=== PATIENT | male | born 1955 | race Caucasian/White ===

== ENCOUNTER 2021-04-26 23:03 | Inpatient (IN) | payer OTHER, SELFPAY ==
--- NOTE | ~2021-04-26 | XR_ITS ---
EXAMINATION: XR foot LT 2V DATE: 04/26/2021 23:52 INDICATION: Left foot ulcer. TECHNIQUE: 2 views of left foot were obtained. COMPARISON: None. FINDINGS: There is mild hallux valgus. No fracture. There is moderate osteoarthritis of first metatar sophalangeal joint and mild osteoarthritis of some the interphalangeal joints and midfoot joints. The re is an enthesophyte at plantar aspect of calcaneal tuberosity. There is an ulcer at the plantar asp ect of the great toe. IMPRESSION: 1. No evidence of osteomyelitis. 2. Polyarticular osteoarthritis. 3. Mild hallux valgus. Reviewed, dictated and finalized at location A.
--- NOTE | ~2021-04-26 | US_ITS ---
EXAMINATION: US renal BI EXAM DATE: 05/04/2021 13:24 INDICATION: Elevated creatinine. TECHNIQUE: Multiple grayscale and Doppler images of the kidneys were obtained (by a technologist who performed the scan) and subsequently reviewed. There is no prior study for comparison. FINDINGS: Right kidney: There is normal contour and echogenicity. It measures 11.5 x 6.3 x 6.2 centimeters. T here are no focal renal lesions identified. There is no hydronephrosis. Left kidney: There is normal contour and echogenicity. It measures 12.1 x 5.3 x 5.7 centimeters. Th ere are no focal renal lesions identified. There is no hydronephrosis. Bladder unremarkable. IMPRESSION: 1. Sonographically unremarkable kidneys. Reviewed, dictated and finalized at location A.
--- NOTE | ~2021-04-26 | US_ITS ---
EXAMINATION: US venous doppler LE EXAM DATE: 05/04/2021 13:24 INDICATION: Bilateral leg edema. TECHNIQUE: Multiple grayscale, color flow and Doppler images of the lower extremity deep venous syste ms bilaterally were obtained and reviewed. There is no prior study for comparison. FINDINGS: Right side: The right common femoral, femoral and profunda veins demonstrate normal color flow, respi ratory variation, augmentation and compressibility. Compressibility, color flow confirmed within the right popliteal, posterior tibial, peroneal, and greater saphenous veins. Left side: The left common femoral, femoral and profunda veins demonstrate normal color flow, respira tory variation, augmentation and compressibility. Compressibility, color flow confirmed within the l eft popliteal, posterior tibial, peroneal, and greater saphenous veins. Left inguinal lymphadenopath y, could be reactive given left foot ulceration, redness, swelling. IMPRESSION: 1. No lower extremity deep venous thrombosis bilaterally. 2. Left inguinal lymphadenopathy, probably reactive. Reviewed, dictated and finalized at location A.
--- NOTE | ~2021-04-26 | NM_ITS ---
EXAMINATION: NM renal flow and function DATE: 05/14/2021 13:43 INDICATION: Acute kidney injury. TECHNIQUE: 8.4 mCi Tc-99m MAG3 was administered IV. The patient was scanned in the supine position. A posterior abdominal radionuclide angiogram was obtained. A subsequent time course of static images of the kidneys, ureters, and bladder was obtained. COMPARISON: Ultrasound kidneys 05/04/2021 FINDINGS: The posterior abdominal radionuclide angiogram and sequential static images show normal siz e, position, and morphology of the kidneys. Peak renal parenchymal uptake was 25 min in right kidney and 29 min in left kidney (normal peak 3-5 minutes). The relative early renal uptake was 58% on the right and 42% on the left (<40% is abnormal). No abnormalities of the ureters or bladder are seen. T1/2 for clearance of activity from the right kidney and proximal collecting system was too long to m easure. T1/2 for clearance of activity from the left kidney and proximal collecting system was too long to me asure. IMPRESSION: 1. Symmetric kidney function. 2. Delayed and persistent bilateral nephrograms, consistent with decreased kidney function. Reviewed, dictated and finalized at location A. IMPRESSION: 1. Symmetric kidney function. 2. Delayed and persistent bilateral nephrograms, consistent with decreased kid faina function.
--- NOTE | ~2021-04-26 | CT_ITS ---
EXAMINATION: CT foot LT wo con DATE: 04/27/2021 10:48 INDICATION: Diabetic foot ulcer with erythema and swelling at the left great toe. Assess for osteomye litis. TECHNIQUE: High resolution computed tomography (CT) of the left foot was performed without intravenou s contrast. Additional sagittal and coronal reconstructions were performed. Automated exposure contro l and iterative reconstruction technique were employed. The dose-length product was 419.66 mGy-cm. COMPARISON: Left foot radiographs dated 04/26/2021 FINDINGS: Shallow skin ulceration at the plantar/medial aspect of the distal tip of the left great toe. There i s soft tissue swelling and likely edema in the fat at the tip of the great toe. No deep or soft tissu e gas. No underlying cortical erosion to suggest osteomyelitis. Bone alignment is normal. No fracture . Moderate osteoarthritis at the first metatarsal phalangeal and second tarsometatarsal joints with m ild osteoarthritis at many of the remaining joints throughout the left foot as well as at the left an kle. Bone islands at the talus and navicula. Small Achilles and plantar calcaneal spurs. No joint eff usions. Diffuse subcutaneous edema about the distal lower leg, ankle and foot. IMPRESSION: 1. Shallow ulceration at the plantar medial aspect of the distal tip of the left great toe without ev ident underlying soft tissue gas or osteomyelitis. 2. Mild to moderate polyarticular osteoarthritis. Reviewed, dictated and finalized at location A. IMPRESSION: 1. Shallow ulceration at the plantar medial aspect of the distal tip of the lef t great toe without evident underlying soft tissue gas or osteomyelitis. 2. Mild to moderate polyarticular osteoarthritis.
[2021-04-26 23:06] VITALS: BP 155/75; PULSE 93; RESP 18; TEMP 36.8; O2SAT 98
--- NOTE | 2021-04-26 23:27 | ECG_ITS ---
Measurements Intervals [place] Rate: 86 P: 49 WV: 261 QRS: -13 QRSD: 178 T: 139 QT: 424 QTc: 510 Interpretive Statements SINUS RHYTHM WITH FIRST DEGREE AV BLOCK LEFT BUNDLE BRANCH BLOCK BASELINE WANDER- I, II, AVR, AVL, AVF, V6 ABNORMAL ECG Electronically Signed On 04-27-2021 6:34:09 CDT by Tho Caballero D.O.
--- NOTE | 2021-04-26 23:42 | ED.WOUNDLAC ---
HPI - Wound/Laceration General Chief Complaint: Wound/Laceration Stated Complaint: foot wounds/diabetic wounds Time Seen by Provider: 04/26/21 23:20 History of Present Illness HPI narrative: Patient presents for evaluation of a wound on his foot. Patient reports he jammed his toe against some furniture approximately 1 month ago he has been attempting topical antibiotics however his wound does not appear to be healing and his pain is getting worse so he wanted to come in for evaluation. He has pain that is achy, constant, radiates up his leg and worse with walking. Related Data Home Medications Medication Instructions Recorded Confirmed aspirin 81 mg PO DAILY 04/27/21 04/27/21 fluticasone propionate 40 mcg INTRANASAL Q6H 04/27/21 04/27/21 furosemide 40 mg PO DAILY 04/27/21 04/27/21 glipizide 5 mg PO DAILY 04/27/21 04/27/21 hydralazine 10 mg PO TID 04/27/21 04/27/21 latanoprost 1 drp EACH EYE DAILY 04/27/21 04/27/21 lisinopril 30 mg PO DAILY 04/27/21 04/27/21 loratadine 10 mg PO DAILY 04/27/21 04/27/21 metoprolol succinate [Toprol XL] 100 mg PO DAILY 04/27/21 04/27/21 quetiapine 400 mg PO DAILY 04/27/21 04/27/21 tamsulosin 0.4 mg PO DAILY 04/27/21 04/27/21 tramadol 50 mg PO Q4H PRN 04/27/21 04/27/21 zolpidem 5 mg PO DAILY 04/27/21 04/27/21 Allergies Allergy/AdvReac Type Severity Reaction Status Date / Time latex Allergy Intermediate Itching Verified 04/27/21 03:39 Review of Systems Review of Systems: CONSTITUTIONAL: Denies fever, chills, or sweats. EYES: Denies visual changes, redness, or discharge. ENT: Denies rhinorrhea, congestion, sore throat, or otalgia. CARDIOVASCULAR: Denies chest pain, palpitations, or edema. RESPIRATORY: Denies cough or dyspnea. GASTROINTESTINAL: Denies abdominal pain, nausea, vomiting, or diarrhea. GENITOURINARY: Denies dysuria or hematuria. SKIN: Denies rash or itching. MUSCULOSKELETAL: Denies back pain, joint pain, or myalgia. NEUROLOGIC: Denies headache, numbness, dizziness, or weakness. PSYCHIATRIC: Denies anxiety or depression. All systems reviewed & are unremarkable except as noted in HPI and below PMFSH Family History Family History (Updated 04/27/21 @ 03:48 by Theresa Wallace RN) Father Lung cancer Social History Social History Smoking status: Never smoker Alcohol intake: never Substance use: never Spiritual care concerns: No Exam Narrative: GENERAL: Well-appearing, well-nourished, and in no acute distress. HEAD: Normocephalic, atraumatic. EYES: PERRLA and EOMI. ENT: Nares clear, no rhinorrhea or epistaxis. Mucous membranes moist. NECK: Supple. No masses. No JVD EXTREMITIES: Ulcer on the plantar of the first digit on the left foot does palpate to bone there is associated erythema that tracks up to the knee and 3+ pitting edema bilaterally. The left lower extremity has increased warmth compared to the contralateral side. Is able to express any purulent material from his wound there is not appear to be any focal fluctuance SKIN: Warm, dry, no rash. NEURO: No focal deficits. Alert and oriented x3. PSYCH: Normal mood and affect. Course Vital Signs Vital signs: Vital Signs Temperature 36.8 C 04/26/21 23:06 Pulse Rate 93 04/26/21 23:06 Respiratory Rate 18 04/26/21 23:06 Blood Pressure 155/75 H 04/26/21 23:06 Pulse Oximetry 98 04/26/21 23:06 Temperature 36.1 C L 04/27/21 05:06 Pulse Rate 67 04/27/21 05:06 Respiratory Rate 22 H 04/27/21 05:06 Blood Pressure 121/56 L 04/27/21 05:06 Pulse Oximetry 95 04/27/21 05:06 MDM - Wound/Laceration MDM Narrative Medical decision making narrative: Patient presented with poorly healing wound on his left lower extremity exam has a diabetic ulcer that probes to bone with surrounding erythema radiating up into his leg. Labs and imaging obtained. Labs notable for mild leukocytosis, elevated glucose, elevated lactate. Imaging was with ou
[2021-04-27] VITALS (10 sets, daily range): BP systolic 121–140; BP diastolic 56–72; PULSE 67–90; RESP 16–22; TEMP 36.1–36.7; O2SAT 95–100; BMI 41.1
[2021-04-27 00:16] LABS: Basophils Absolute Auto 0.1 K/mm3 (0.0-0.1); Basophils Percent Auto 0.7 % (0.2-1.2); Eosinophils Absolute Auto 0.5 K/mm3 (0-0.3); Eosinophils Percent Auto 4.1 % (0-4.4); Immature Granulocyte Absolute 0.33 K/mm3 (0.00-0.031); Immature Granulocyte Percent A 2.8 % (0-0.5); Lymphocytes Absolute Auto 1.87 K/mm3 (0.9-3.2); Mean Corpuscular HGB Conc 32.5 g/dl (32-36); Mean Corpuscular Hemoglobin 29.3 pg (26-34); Mean Corpuscular Volume 90.3 fl (80-100); Mean Platelet Volume 9.3 fl (7.4-10.4); Monocytes Absolute Auto 0.8 K/mm3 (0.1-0.6); Monocytes Percent Auto 6.7 % (2.6-8.5); Neutrophils Absolute Auto 8.2 K/mm3 (1.3-6.7); Neutrophils Percent Auto 69.7 % (45.5-73.1); Platelet Count Result 326 k/mm3 (150-375); Red Blood Count 4.43 M/mm3 (4.6-6.20); Red Cell Distribution Width 13.5 % (11.5-14.5); White Blood Count 11.7 K/mm3 (4.5-10.0)
[2021-04-27 00:26] LABS: Lactic Acid Reflex 2.3 mmol/L (0.7-2.1)
[2021-04-27 00:27] LABS: Alanine Aminotransferase 59 U/L (4-50); Albumin Level 3.7 g/dL (3.5-5.1); Alkaline Phosphatase 148 U/L (38-126); Anion Gap 9 mmol/L (8-16); Aspartate Amino Transferase 42 U/L (17-59); Bilirubin,Total 0.5 mg/dL (0.2-1.3); Blood Urea Nitrogen 20 mg/dL (9-20); CRP 6.4 mg/dL (<1.0); Calcium 8.7 mg/dL (8.4-10.2); Carbon Dioxide 28 mmol/L (22-30); Chloride 97 mmol/L (98-107); Estimated CRCL calculation 98 ml/min; Estimated Glomerular Filt Rate > 60; Glucose 335 mg/dL (65-110); Partial Thromboplastin Time 36.2 SECONDS (22.3-36.8); Potassium 3.8 mmol/L (3.4-5.0); Prothrombin Time 13.4 Seconds (11.1-14.7); Sodium 134 mmol/L (137-145)
[2021-04-27 01:18] LABS: Erythrocyte Sedimentation Rate 95 mm/hr (0-20)
[2021-04-27 03:11] LABS: Reflex Lactic Acid Yes or No Add Lactic
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
[2021-04-27] MEDS: HEPARIN SODIUM 5,000 UNITS/ML VIAL 5000 UNITS SUB-Q (05:35)
[2021-04-27 07:12] LABS: Lactic Acid 1.7 mmol/L (0.7-2.1)
[2021-04-27] MEDS: INSULIN ASPART (*BKC) 100 UNITS/ML 6 UNITS SUB-Q ×2 (07:46→17:35)
[2021-04-27 07:56] LABS: Glucose Point of Care 194 mg/dl (65-105)
[2021-04-27] MEDS: traMADol HCL (*CRX) 50 MG TABLET PO (10:09)
[2021-04-27] MEDS: METOPROLOL SUCCINATE EXT REL 100 MG TABCR PO (10:09)
[2021-04-27] MEDS: ASPIRIN 81 MG CHEWABLE TABLET PO (10:10)
[2021-04-27] MEDS: lisinopriL 10 MG TABLET 30 MG PO (10:10)
[2021-04-27] MEDS: TAMSULOSIN HCL 0.4 MG CAPSULE PO (10:10)
[2021-04-27] MEDS: hydrALAZINE 10 MG TABLET PO (10:10)
[2021-04-27] MEDS: FUROSEMIDE 40 MG TABLET PO (10:10)
[2021-04-27] MEDS: LATANOPROST 0.005% OP SOLN 2.5 ML BTL 1 DROP EACH EYE (10:11)
[2021-04-27] MEDS: QUEtiapine FUMARATE 100 MG TABLET 400 MG PO (10:11)
[2021-04-27] MEDS: LORATADINE 10 MG TABLET PO (10:11)
--- NOTE | 2021-04-27 11:07 | PM.IMPN ---
Progress Note: A&P Assessment and Plan (1) Skin ulcer of left great toe: Code(s): L97.529 - Non-pressure chronic ulcer of other part of left foot with unspecified severity Status: Acute Assessment and Plan: X-ray showing no evidence of osteomyelitis. Polyarticular osteoarthritis. Concerns for cellulitis from trauma and history of diabetes. CT foot has been ordered and pending Continue IV antibiotics at this time with vancomycin and cefepime (#1) Blood cultures pending Surgery and Infectious Disease has been consulted by the previous provider and their input is greatly appreciated Continue monitoring. Vital signs. (2) Cellulitis: Qualifiers: Laterality: left Site of cellulitis: extremity Site of cellulitis of extremity: lower extremity Qualified Code(s): L03.116 - Cellulitis of left lower limb Code(s): L03.90 - Cellulitis, unspecified Status: Acute Assessment and Plan: See above. (3) Type 2 diabetes mellitus: Code(s): E11.9 - Type 2 diabetes mellitus without complications Status: Acute Assessment and Plan: Will hold patients oral Glipizide. Glucose checks ACHS. Hypoglycemic orders in. Sliding scale insulin (4) Legally blind: Code(s): H54.8 - Legal blindness, as defined in [place] Status: Acute Assessment and Plan: PT/OT ordered. Walk with assistance. Time Spent With Patient Time with patient: 25 - 35 minutes Subjective Date/time seen: 04/27/21 11:07 Interval history: Date of service 04/27/2021: Patient states he is still having some foot pain, as he is using it to help get into the wheelchair to go get this CT scan. Since he is legally blind he cannot tell if there is any improvement of his foot wound in swelling or redness. He denies any fevers, chills, chest pain, shortness of breath, cough, nausea, vomiting, abdominal pain, or any other symptoms at this time. Review of Systems Review of Systems: All systems reviewed & are unremarkable except as noted in HPI and below Exam Narrative: General: 66-year-old man transferring into a wheelchair to go down to CT. Appears comfortable. In no acute distress. HEENT: Gauze dressing and tape to right eyebrow and over right eye partially. Normocephalic. Skin: No jaundice or cyanosis. Good skin turgor. Neck: Full range of motion. Supple. Respiratory: Lungs are clear to auscultation bilaterally. No wheezing, rales or rhonchi. No bony chest wall tenderness. Cardiovascular: The heart has a regular rate and rhythm without murmur. Lower extremities: Left foot with gauze dressing in place, unable to further evaluate since going down for CT scan. No lower extremity edema. Distal pulses are easily palpated. No calf tenderness to palpation. Gastrointestinal: The abdomen is soft, nontender and nondistended with active bowel sounds. Psychiatric: Lucid and oriented. Memory intact. Neurologic: No focal deficits. Speech is clear. No facial drooping. Objective Data Vital Signs Vital Signs: Vital Signs - 24 hr 04/26/21 23:06 04/27/21 01:21 04/27/21 02:28 Temperature 98.3 F Pulse Rate 93 83 84 Respiratory Rate 18 18 20 Blood Pressure 155/75 H 139/68 140/72 Pulse Oximetry 98 100 100 04/27/21 05:06 04/27/21 10:09 Temperature 96.9 F L Pulse Rate 67 72 Respiratory Rate 22 H Blood Pressure 121/56 L Pulse Oximetry 95 Intake/Output Intake/Output: Intake & Output 04/24/21 04/25/21 04/26/21 04/27/21 23:59 23:59 23:59 23:59 Intake Total 510 Output Total 600 Balance -90 Meds/Results Medications: Active Medications Generic Name Dose Route Start Last Admin Trade Name Freq PRN Reason Stop Dose Admin Aspirin 81 mg 04/27/21 09:00 04/27/21 10:10 Aspirin 81
[2021-04-27 11:22] LABS: Glucose Point of Care 187 mg/dl (65-105)
--- NOTE | 2021-04-27 12:45 | PC.NURSE ---
arrived to pt's room after him calling out after using the urinal, pt has eyes closed and is speaking with a garbled speech which is changed from previous assessment, I asked him what was wrong and he states he is having trouble getting his words out, he did not open eyes but was speaking, I placed a call to Elle to report a change in this pt, she arrived to room to complete a neuro check and assess pt within 15 minutes, during her assessment the pt shot up to seated position and stated he was fine and that she is barking up the wrong tree that he has been sleep deprived for several days due to having pain in foot and having difficulty sleeping, he states he does not need a CT of his head because chance of him having a stroke is a trillion to one
--- NOTE | 2021-04-27 13:01 | PM.CNGS ---
Assessment and Plan Assessment and plan (1) Skin ulcer of left great toe: Qualifiers: Non-pressure ulcer stage: with fat layer exposed Qualified Code(s): L97.522 - Non-pressure chronic ulcer of other part of left foot with fat layer exposed Code(s): L97.529 - Non-pressure chronic ulcer of other part of left foot with unspecified severity Status: Acute Assessment and Plan: Patient has a wound on the plantar surface of his left great toe. This appears likely to be related to the recent injury to this toe and poor visualization to be able to adequately care for this. He has palpable dorsalis pedis and posterior tibial pulses and does not show any other signs of ischemia. Will begin daily dressing changes with silver gel applied to wound base. Will continue to monitor while and and hopefully will not require any surgical debridement or amputation. CT is still pending to assess further for any signs of osteomyelitis. He is on broad-spectrum IV antibiotics for lower extremity cellulitis as well. (2) Type 2 diabetes mellitus: Qualifiers: Diabetes mellitus terminal clerk insulin use: without terminal clerk use Diabetes mellitus complication status: with hyperglycemia Qualified Code(s): E11.65 - Type 2 diabetes mellitus with hyperglycemia Code(s): E11.9 - Type 2 diabetes mellitus without complications Status: Acute Assessment and Plan: poorly controlled. Hemoglobin A1c has not been drawn yet, but this will be beneficial to determine how well patient has been controlled lately. (3) Legally blind: Code(s): H54.8 - Legal blindness, as defined in [place] Status: Acute (4) Cellulitis: Qualifiers: Laterality: left Site of cellulitis: extremity Site of cellulitis of extremity: lower extremity Qualified Code(s): L03.116 - Cellulitis of left lower limb Code(s): L03.90 - Cellulitis, unspecified Status: Acute History of Present Illness Consult details Consult date: 04/27/21 Reason for consult: other (Diabetic toe ulcer) Requesting physician: Ashvin Noel MD Narrative: this is a 66-year-old man who I am asked to evaluate for a left toe wound. The patient states that a couple weeks ago he bumped his left great toe and developed a wound to this area. He is partially blind and therefore could not give a real accurate history of how the wound looked. He has been applying a Vaseline ointment to his feet to try to prevent dry skin or other wounds. He has been having some pain to the left great toe, but denies any other new symptoms. In the emergency department he was noted to have a significant amount of erythema extending along his foot and lower leg. The patient is diabetic but has not been very compliant with his medications. He states that he has been having insurance issues preventing him from getting routine refills. He denies any prior history of diabetic foot wounds. He was admitted to the hospital and placed on IV antibiotics. A foot x-ray showed no evidence of osteomyelitis. He was taken down for CT of his foot this morning, but results are not back yet. Review of Systems Review of Systems: All systems reviewed & are unremarkable except as noted in HPI and below Constitutional: Constitutional: Denies chills, Reports difficulty sleeping and Denies fever(s) Eyes: Eyes: Denies change in vision ENT: Denies hearing loss, Denies neck pain and Denies sore throat Cardiovascular: Cardiovascular: Denies chest pain and Denies dyspnea Respiratory: Respiratory: Denies cough, Denies dyspnea and Denies wheezing Gastrointestinal: Gastrointestinal: Denies change in bowel habits, Denies nausea and Denies vomiting Genitourinary: Genitourinary: Denies hematuria and Denies dysuria Musculoskeletal: Musculoskeletal: Denies arthralgias, Denies joint swelling and Denies neck pain Integumentary/Breasts: Skin/Breast: Reports as per HPI Allergic/Immunologic: All
--- NOTE | 2021-04-27 15:02 | PCOTNOTE ---
Attempted OT evaluation; pt. asleep and unable to wake enough to complete evaluation. Will attempt again in am as possible.
[2021-04-27] MEDS: SILVERGEL (ELTA) 45 ML 1 APPLIC TOPICAL (15:22)
[2021-04-27 17:34] LABS: Glucose Point of Care 193 mg/dl (65-105)
--- NOTE | 2021-04-27 17:50 | PC.NURSE ---
despite repeated attempts in several different methods, pt refused/was unable to awaken to take his 1700 meds; will continue to monitor
[2021-04-27 21:20] LABS: Glucose Point of Care 186 mg/dl (65-105)
--- NOTE | 2021-04-27 22:31 | PC.NURSE ---
At 2036 I entered the patient room with JOSSELYN Hawk, to do an initial assessment and administer 2100 medications. I introduced myself to the patient and stated I needed to listen to his lungs and stomach. I noticed he had something in his pants and asked him what it was. He did not answer. I proceeded to pull down his pants and pulled out a urinal from around his stomach area. I handed it to the JOSSELYN to empty and record. I stated that his pants were wet and we needed to take them off. The patient woke up and denied that he had wet pants. Carine stated that we had other scrub pants available for him to change in to. The patient was angry and said he did not have wet pants and told me to get the fuck out of here and let me sleep . I said we cannot leave you soaked in urine because that would lead to further skin breakdown. Carine and I both stated that you are in the hospital to receive care and treatment. I listed all the medication and IV antibiotics that were due for administration. I said I would let him sleep as soon as I was finished and that it would not take long. The patient got even more angry and jumped out of bed and said I am going to knock you out and punch you if you don't leave . I jumped back and said I am only here to treat you. If you don't want treatment you can leave at anytime. He said all I want to do it sleep . I repeated his need for IV antibiotics and he screamed more obscenities at me and told me to leave. Carine and I both left the room after he declined care. I reported the incident to my charge nurse Luann.
[2021-04-28] VITALS (11 sets, daily range): BP systolic 111–136; BP diastolic 50–86; PULSE 70–88; RESP 20–22; TEMP 36–36.2; O2SAT 94–96
[2021-04-28 01:35] LABS: Vancomycin Trough 17.5 ug/mL (10.0-20.0)
[2021-04-28 05:58] LABS: Hematocrit 39.8 % (42.0-52.0); Hemoglobin 12.7 g/dL (14.0-18.0); Mean Corpuscular HGB Conc 31.9 g/dl (32-36); Mean Corpuscular Volume 93.9 fl (80-100); Mean Platelet Volume 9.2 fl (7.4-10.4); Platelet Count Result 309 k/mm3 (150-375); Red Blood Count 4.24 M/mm3 (4.6-6.20); Red Cell Distribution Width 13.7 % (11.5-14.5); White Blood Count 12.5 K/mm3 (4.5-10.0)
[2021-04-28 06:07] LABS: Hemoglobin A1C 7.8 % (<5.7)
[2021-04-28] MEDS: HEPARIN SODIUM 5,000 UNITS/ML VIAL 5000 UNITS SUB-Q ×3 (06:25→21:34)
[2021-04-28 07:32] LABS: Glucose Point of Care 193 mg/dl (65-105)
[2021-04-28 08:22] LABS: Alanine Aminotransferase 48 U/L (4-50); Albumin Level 3.8 g/dL (3.5-5.1); Alkaline Phosphatase 99 U/L (38-126); Anion Gap 6 mmol/L (8-16); Aspartate Amino Transferase 43 U/L (17-59); Bilirubin,Total 0.9 mg/dL (0.2-1.3); Blood Urea Nitrogen 17 mg/dL (9-20); CRP 5.9 mg/dL (<1.0); Calcium 8.6 mg/dL (8.4-10.2); Carbon Dioxide 27 mmol/L (22-30); Chloride 99 mmol/L (98-107); Estimated CRCL calculation 130 ml/min; Estimated Glomerular Filt Rate > 60; Glucose 195 mg/dL (65-110); Potassium 4.6 mmol/L (3.4-5.0); Sodium 132 mmol/L (137-145)
[2021-04-28] MEDS: lisinopriL 10 MG TABLET 30 MG PO (09:11)
[2021-04-28] MEDS: FUROSEMIDE 40 MG TABLET PO (09:12)
[2021-04-28] MEDS: METOPROLOL SUCCINATE EXT REL 100 MG TABCR PO (09:12)
[2021-04-28] MEDS: ASPIRIN 81 MG CHEWABLE TABLET PO (09:12)
[2021-04-28] MEDS: hydrALAZINE 10 MG TABLET PO ×3 (09:12→17:12)
[2021-04-28] MEDS: TAMSULOSIN HCL 0.4 MG CAPSULE PO (09:12)
[2021-04-28] MEDS: QUEtiapine FUMARATE 100 MG TABLET 400 MG PO (09:12)
[2021-04-28] MEDS: FLUTICASONE PROPIONATE 0.05% NA SPR 16 GM BTL (*BKC) 1 SPRAY NASAL ×2 (09:13→21:34)
[2021-04-28] MEDS: LATANOPROST 0.005% OP SOLN 2.5 ML BTL 1 DROP EACH EYE (09:13)
--- NOTE | 2021-04-28 09:17 | PM.PNGS ---
Progress Note: A&P Assessment and Plan (1) Skin ulcer of left great toe: Qualifiers: Non-pressure ulcer stage: with fat layer exposed Qualified Code(s): L97.522 - Non-pressure chronic ulcer of other part of left foot with fat layer exposed Code(s): L97.529 - Non-pressure chronic ulcer of other part of left foot with unspecified severity Status: Acute Assessment and Plan: No signs of osteomyelitis on CT. Continue local wound care. I doubt this will need any debridement if well taken care of. Continue Silver gel to wound. Will follow as needed. (2) Cellulitis: Qualifiers: Laterality: left Site of cellulitis: extremity Site of cellulitis of extremity: lower extremity Qualified Code(s): L03.116 - Cellulitis of left lower limb Code(s): L03.90 - Cellulitis, unspecified Status: Acute (3) Type 2 diabetes mellitus: Qualifiers: Diabetes mellitus termite control representative insulin use: without [place] [facility] use Diabetes mellitus complication status: with hyperglycemia Qualified Code(s): E11.65 - Type 2 diabetes mellitus with hyperglycemia Code(s): E11.9 - Type 2 diabetes mellitus without complications Status: Acute (4) Legally blind: Code(s): H54.8 - Legal blindness, as defined in [place] Status: Acute Subjective Subjective Date/Time Seen: 04/28/21 09:17 Interval history: Still complaining of some leg pain. Overall feeling better. Exam Extrem: General: edema bilateral Other: PT and DP pulses intact. Left plantar great toe ulcer unchanged. No purulent drainage. Objective Data Vital Signs Vital Signs: Vital Signs - 24 hr 04/27/21 10:09 04/27/21 12:40 04/27/21 13:23 Temperature Pulse Rate 72 90 90 Respiratory Rate 16 Blood Pressure 134/58 L Pulse Oximetry 96 04/27/21 14:00 04/27/21 16:00 04/27/21 20:00 Temperature 36.7 C Pulse Rate 80 79 70 Respiratory Rate 22 H Blood Pressure 125/63 Pulse Oximetry 100 04/27/21 20:49 04/28/21 00:00 04/28/21 04:00 Temperature 36.1 C L Pulse Rate 70 70 75 Respiratory Rate 20 Blood Pressure 130/71 Pulse Oximetry 96 04/28/21 05:25 Temperature 36.2 C L Pulse Rate 75 Respiratory Rate 20 Blood Pressure 136/86 Pulse Oximetry 94 Intake/Output Intake/Output: Intake & Output 04/25/21 04/26/21 04/27/21 04/28/21 23:59 23:59 23:59 23:59 Intake Total 2390 1090 Output Total 1750 600 Balance 640 490 Meds/Results Medications: Active Medications Generic Name Dose Route Start Last Admin Trade Name Freq PRN Reason Stop Dose Admin Aspirin 81 mg 04/27/21 09:00 04/27/21 10:10 Aspirin 81 Mg Chewable Tablet PO 81 mg DAILY MARELY Administration Fluticasone Propionate 1 spray 04/27/21 12:40 04/28/21 08:14 Fluticasone Propionate 0.05% Na Spr 16 Gm Btl (*Bkc) NASAL Not Given Q12HR MARELY Furosemide 40 mg 04/27/21 09:00 04/27/21 10:10 Furosemide 40 Mg Tablet PO 40 mg DAILY MARELY Administration Heparin Sodium (Porcine) 5,000 units 04/27/21 06:00 04/28/21 06:25 Heparin Sodium 5,000 Units/Ml Vial SUB-Q 5,000 units Q8HR MARELY Administration Hydralazine HCl 10 mg 04/27/21 09:00 04/27/21 22:34 Hydralazine 10 Mg Tablet PO Not Given TID MARELY Vancomycin HCl 1,500 mg in 500 mls @ 333.333 mls/hr 04/27/21 10:00 04/28/21 04:13 Vancomycin 1,500 Mg/D5w 500 Ml IVPB Infused Q8H MARELY Infusion Cefepime HCl 2 gm in 50 mls @ 100 mls/hr 04/27/21 06:00 04/28/21 06:55 Maxipime 2 Gm/D5w 50 Ml IVPB Infused Q8H MARELY Infusion Insulin Aspart 6 units 04/27/21 08:00 04/27/21 17:35 Insulin Aspart (*Bkc) 100 Units/Ml 0.05 units/kg (6 units) 6 units SUB-Q Administration TIDWM MARELY Latanoprost 1 drop 04/27/21 09:00 04/27/21 10:11 Latanoprost 0.005% Op Soln 2.5 Ml Btl EACH EYE 1 drop DAILY MARELY Administration Lisinopril 30 mg 04/27/21 09:00 04/27/21 10:10 Lisinopril 10 Mg Tablet PO 30 mg DAILY MARELY
[2021-04-28] MEDS: traMADol HCL (*CRX) 50 MG TABLET PO (09:19)
[2021-04-28] MEDS: SILVERGEL (ELTA) 45 ML 1 APPLIC TOPICAL ×2 (09:32→17:12)
--- NOTE | 2021-04-28 09:40 | PM.IMPN ---
Progress Note: A&P Assessment and Plan (1) Skin ulcer of left great toe: Qualifiers: Non-pressure ulcer stage: with fat layer exposed Qualified Code(s): L97.522 - Non-pressure chronic ulcer of other part of left foot with fat layer exposed Code(s): L97.529 - Non-pressure chronic ulcer of other part of left foot with unspecified severity Status: Acute Assessment and Plan: X-ray showing no evidence of osteomyelitis. Polyarticular osteoarthritis. Concerns for cellulitis from trauma and history of diabetes. CT foot ordered and showing no osteomyelitis. Will continue with treatment for Cellulitis and leg edema. Continue IV antibiotics at this time with vancomycin and cefepime (#2) Blood cultures pending CRP coming down with current treatment Surgery was consulted and feels there is no need for further debridement at this time. Plans for Silver gel and dressing changes daily. Infectious Disease has been consulted by the previous provider and their input is greatly appreciated Continue monitoring. Vital signs. (2) Cellulitis: Qualifiers: Laterality: left Site of cellulitis: extremity Site of cellulitis of extremity: lower extremity Qualified Code(s): L03.116 - Cellulitis of left lower limb Code(s): L03.90 - Cellulitis, unspecified Status: Acute Assessment and Plan: See above. (3) Congestive heart failure: Code(s): I50.9 - Heart failure, unspecified Status: Acute Assessment and Plan: Acute. Patient reports history of congestive heart failure since 2012. Unable to tell me if systolic versus diastolic. 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 He is so-so be on Lasix daily but has been out of his medications since April 10. Echocardiogram pending to decide if his congestive heart failure is related to systolic versus diastolic dysfunction Due to lower extremity pitting edema bilaterally left greater than right will start IV Lasix 40 mg b.i.d. Will check weights daily and strict intake and output Continue on metoprolol, lisinopril at this time. Continue monitoring renal function electrolytes with diuresis (4) Chest pain: Code(s): R07.9 - Chest pain, unspecified Status: Acute Assessment and Plan: Patient is reporting some left-sided chest pain which he states he has when he does not take his metoprolol. He states he has had this chest pain since April 10 which is the last time he took his metoprolol. The patient did not take his metoprolol yesterday because he refused the medication because he was tired and wanted to sleep. From what the patient tells me a sounds like he has a long history of coronary artery disease and follows up with a newspaper carriers supervisor at [facility] Will continue his home medications Check EKG, troponin, continue monitoring on telemetry If any worsening chest pain, abnormality will consider Cardiology consultation. (5) Slurred speech: Code(s): R47.81 - Slurred speech Status: Acute Assessment and Plan: 04/27/24 at 1230: I was called by the patient's nurse to his bedside because the patient said he was having trouble with his speech. Upon my evaluation it does seem like the patient was having some slurred speech from when I evaluated him earlier. Patient said it just started a few minutes ago he is having trouble coming up with the right words and some slurred speech. I further exam and him: No pronator drift. The patient reported sensation changes to both sides of his face. Patch Driller strength equal to bilateral upper extremities. I moved on to my lower extremity examination with sensation and strength when the patient immediately sat up because I had heard him. He sat up without any assistance and m
--- NOTE | 2021-04-28 09:46 | ECG_ITS ---
Measurements Intervals [place] Rate: 80 P: 62 HI: 258 QRS: -9 QRSD: 177 T: 120 QT: 429 QTc: 497 Interpretive Statements SINUS RHYTHM WITH FIRST DEGREE AV BLOCK ATRIAL PREMATURE COMPLEXES LEFT BUNDLE BRANCH BLOCK ABNORMAL ECG Electronically Signed On 04-28-2021 20:35:43 CDT by Tho Caballero D.O.
[2021-04-28] MEDS: LORATADINE 10 MG TABLET PO (10:02)
[2021-04-28 10:45] LABS: Troponin I < 0.012 ng/mL (0.000-0.034)
[2021-04-28 12:14] LABS: Glucose Point of Care 227 mg/dl (65-105)
[2021-04-28] MEDS: EUCERIN CREAM 120 GM JAR 1 APPLIC TOPICAL (12:57)
[2021-04-28] MEDS: INSULIN ASPART (*BKC) 100 UNITS/ML 6 UNITS SUB-Q ×2 (12:58→17:13)
--- NOTE | 2021-04-28 15:55 | WPDCN ---
Assessment and Plan Additional Plan 1. Left diabetic foot infection with chronic left foot 1st digit plantar ulcer. Currently on examination not probing to the bone. No signs of loculation or crepitation. CT scan of the foot was negative for osteomyelitis. Diabetic foot ulcer with secondary cellulitis. Patient is on cefepime and vancomycin. Will deescalate cefepime to Rocephin 2 g daily. Continue to keep leg elevated and follow up on blood cultures. 2. Bilateral lower extremity edema with erythema near symmetrical. Highly suspicious for stasis dermatitis with chronic lymphedema. Recommend keep leg elevated. 3. Type 2 diabetes will request hemoglobin A1c. 4. Morbidly obese would benefit from weight loss. 5. COVID-19 vaccination status: Vaccinated. 6. Date of service 04/28/2020 HPI Data of Consult Date/Time: 04/28/21 15:55 Requesting Physician: Kely Monsalve PA-C Primary Care Provider: Jazmin Cast, Consult Narrative Narrative: Randy Avelar is a 66 year old male with significant past medical history for type 2 diabetes, obesity, hypertension, right eye blindness present to the emergency due to left lower extremity swelling associated with erythema and left foot 1st digit plantar ulcer has been going on for several weeks. He denies any fever or chills. But does complain of erythema extending to the mid aspect of the centeno with associated swelling. No shortness of breath or cough. No diarrhea or dysuria. A CT scan of the foot done in the emergency room was negative for osteomyelitis. Patient was empirically started on cefepime and vancomycin. Blood cultures x2 collected. Infectious Disease was requested for further evaluation. Review of Systems Constitutional: Constitutional: Reports no additional constitutional complaints Eyes: Eyes: Reports as per HPI ENT: Reports as per HPI Cardiovascular: Cardiovascular: Reports no additional cardiovascular complaints Respiratory: Respiratory: Reports no additional respiratory complaints Gastrointestinal: Gastrointestinal: Reports no additional gastrointestinal complaints Genitourinary: Genitourinary: Reports no additional male genitourinary complaints Musculoskeletal: Comments: Bilateral lower extremity edema Integumentary/Breasts: Comments: Bilaterally erythema left greater than right with right plantar ulcer on the 1st digit going on for several weeks Neurologic: Reports system reviewed and no additional complaints, except as documented Psychiatric: Psychiatric: Reports no additional psychiatric complaints Endocrine: Endocrine: Reports as per HPI Hematologic/Lymphatic: Hematologic/Lymphatic: Reports no additional hematologic/lymphatic complaints Allergic/Immunologic: Allergic/Immunologic: Reports no additional allergic/immunologic complaints [facility] Past Medical History Medical History Legally blind Type 2 diabetes mellitus Family History Family History Father Lung cancer Social History Social History Smoking status: Never smoker Alcohol intake: never Substance use: never Spiritual care concerns: No Meds Home Medications and Allergies Home Medications Medication Instructions Recorded Confirmed Type aspirin 81 mg PO DAILY 04/27/21 04/27/21 History fluticasone propionate 40 mcg INTRANASAL Q6H 04/27/21 04/27/21 History furosemide 40 mg PO DAILY 04/27/21 04/27/21 History glipizide 5 mg PO DAILY 04/27/21 04/27/21 History hydralazine 10 mg PO TID 04/27/21 04/27/21 History latanoprost 1 drp EACH EYE DAILY 04/27/21 04/27/21 History lisinopril 30 mg PO DAILY 04/27/21 04/27/21 History loratadine 10 mg PO DAILY 04/27/21 04/27/21 History metoprolol succinate [Toprol XL] 100 mg PO DAILY 04/27/21 04/27/21 History quetiapine 400 mg PO DAILY 04/27/21 04/27/21 History ta
[2021-04-28] MEDS: FUROSEMIDE INJ 40 MG/4 ML VIAL IV PUSH (16:03)
[2021-04-28 17:24] LABS: Glucose Point of Care 236 mg/dl (65-105)
[2021-04-28 17:36] LABS: Hemoglobin A1C 7.9 % (<5.7)
[2021-04-28] MEDS: ZOLPIDEM TARTRATE (*CRX) 5 MG TABLET PO (21:34)
[2021-04-28 22:26] LABS: Glucose Point of Care 279 mg/dl (65-105)
--- NOTE | 2021-04-28 22:49 | PC.NURSE ---
Pt refused to have wet clothes changed. RN encouraged to change clothes but still refused. Pt refused to have his dinner tray removed. Pt also removed his foot dressing today.
[2021-04-29] VITALS (12 sets, daily range): BP systolic 136–172; BP diastolic 61–88; PULSE 74–92; RESP 16–20; TEMP 36.1–37.4; O2SAT 94–100
[2021-04-29 06:03] LABS: Hematocrit 39.6 % (42.0-52.0); Hemoglobin 12.6 g/dL (14.0-18.0); Mean Corpuscular HGB Conc 31.8 g/dl (32-36); Mean Corpuscular Hemoglobin 29.7 pg (26-34); Mean Corpuscular Volume 93.4 fl (80-100); Mean Platelet Volume 9.6 fl (7.4-10.4); Platelet Count Result 286 k/mm3 (150-375); Red Blood Count 4.24 M/mm3 (4.6-6.20); Red Cell Distribution Width 13.5 % (11.5-14.5); White Blood Count 10.8 K/mm3 (4.5-10.0)
[2021-04-29 06:24] LABS: Anion Gap 8 mmol/L (8-16); Blood Urea Nitrogen 17 mg/dL (9-20); Calcium 8.6 mg/dL (8.4-10.2); Carbon Dioxide 29 mmol/L (22-30); Chloride 98 mmol/L (98-107); Estimated CRCL calculation 115 ml/min; Estimated Glomerular Filt Rate > 60; Glucose 268 mg/dL (65-110); Magnesium 2.1 mg/dL (1.6-2.3); Potassium 4.3 mmol/L (3.4-5.0); Sodium 135 mmol/L (137-145)
[2021-04-29] MEDS: HEPARIN SODIUM 5,000 UNITS/ML VIAL 5000 UNITS SUB-Q ×3 (06:34→21:10)
[2021-04-29 07:55] LABS: Glucose Point of Care 226 mg/dl (65-105)
[2021-04-29] MEDS: LORATADINE 10 MG TABLET PO (08:00)
[2021-04-29] MEDS: hydrALAZINE 10 MG TABLET PO ×3 (08:00→16:24)
[2021-04-29] MEDS: ASPIRIN 81 MG CHEWABLE TABLET PO (08:00)
[2021-04-29] MEDS: TAMSULOSIN HCL 0.4 MG CAPSULE PO (08:00)
[2021-04-29] MEDS: QUEtiapine FUMARATE 100 MG TABLET 400 MG PO (08:01)
[2021-04-29] MEDS: FLUTICASONE PROPIONATE 0.05% NA SPR 16 GM BTL (*BKC) 1 SPRAY NASAL ×2 (08:01→21:10)
[2021-04-29] MEDS: METOPROLOL SUCCINATE EXT REL 100 MG TABCR PO (08:01)
[2021-04-29] MEDS: lisinopriL 10 MG TABLET 30 MG PO (08:01)
[2021-04-29] MEDS: FUROSEMIDE INJ 40 MG/4 ML VIAL IV PUSH ×2 (08:01→15:36)
[2021-04-29] MEDS: LATANOPROST 0.005% OP SOLN 2.5 ML BTL 1 DROP EACH EYE (08:01)
[2021-04-29] MEDS: SILVERGEL (ELTA) 45 ML 1 APPLIC TOPICAL ×2 (08:02→16:24)
[2021-04-29] MEDS: INSULIN ASPART (*BKC) 100 UNITS/ML 6 UNITS SUB-Q ×3 (08:03→17:12)
[2021-04-29] MEDS: EUCERIN CREAM 120 GM JAR 1 APPLIC TOPICAL (08:03)
--- NOTE | 2021-04-29 10:18 | WPDINFPN2 ---
Progress Note: A&P Assessment and Plan (1) Skin ulcer of left great toe: Qualifiers: Non-pressure ulcer stage: with fat layer exposed Qualified Code(s): L97.522 - Non-pressure chronic ulcer of other part of left foot with fat layer exposed Code(s): L97.529 - Non-pressure chronic ulcer of other part of left foot with unspecified severity Status: Acute Additional Plan 1. Skin ulcer 1st toe on left with mild cellulitis. No + micro. Stable. 2. LE stasis erythema and edema, he has no cellulitis in the legs 3. DM REC Ctx and Vanc same. Once WBC back to normal, convert to oral cephalexin and TMP-SMX DS, through 05/05. He will need a primary care md. Call if Qs Subjective Date/time seen: 04/29/21 10:18 Interval history: history reviewed. No pain, no chills no nausea Exam Narrative: afebrile Const: General: no acute distress Other: obese Resp: Effort & Inspection: normal respiratory effort Auscultation: clear to auscultation bilaterally Cardio: Rate: regular rate Rhythm: regular rhythm Heart sounds: no gallops and no murmurs Other: DP pulses 1 + GI: Inspection: non-distended GI Palp: Yes Soft to palpation, No Tenderness to palpation present (GI) and No Guarding due to palpation present (GI) Percussion: Yes normal to percussion Skin: General skin exam: normal color and no rashes or lesions noted Extrem: Other: L 1st toe ulcer, mild erythema and edema. LEs with erythema and edema Objective Data Vital Signs Vital Signs: Vital Signs - 24 hr 04/28/21 12:00 04/28/21 12:57 04/28/21 14:00 Temperature 36.2 C L 36.1 C L Pulse Rate 88 88 Respiratory Rate 20 Blood Pressure 130/63 Pulse Oximetry 96 04/28/21 16:00 04/28/21 20:00 04/28/21 20:51 Temperature 36.0 C L Pulse Rate 88 78 81 Respiratory Rate 22 H Blood Pressure 111/50 L Pulse Oximetry 96 04/29/21 00:00 04/29/21 04:00 04/29/21 05:01 Temperature 36.1 C L Pulse Rate 78 75 80 Respiratory Rate 20 Blood Pressure 151/88 H Pulse Oximetry 96 04/29/21 08:01 Temperature Pulse Rate 80 Respiratory Rate Blood Pressure Pulse Oximetry Intake/Output Intake/Output: Intake & Output 04/26/21 04/27/21 04/28/21 04/29/21 23:59 23:59 23:59 23:59 Intake Total 2390 3040 1600 Output Total 1750 2400 500 Balance 669 062 2878 Meds/Results Medications: Active Medications Generic Name Dose Route Start Last Admin Trade Name Freq PRN Reason Stop Dose Admin Aspirin 81 mg 04/27/21 09:00 04/29/21 08:00 Aspirin 81 Mg Chewable Tablet PO 81 mg DAILY MARELY Administration Fluticasone Propionate 1 spray 04/27/21 12:40 04/29/21 08:01 Fluticasone Propionate 0.05% Na Spr 16 Gm Btl (*Bkc) NASAL 1 spray Q12HR MARELY Administration Furosemide 40 mg 04/28/21 15:00 04/29/21 08:01 Furosemide Inj 40 Mg/4 Ml Vial IV PUSH 40 mg BID@0900,1500 MARELY Administration Heparin Sodium (Porcine) 5,000 units 04/27/21 06:00 04/29/21 06:34 Heparin Sodium 5,000 Units/Ml Vial SUB-Q 5,000 units Q8HR MARELY Administration Hydralazine HCl 10 mg 04/27/21 09:00 04/29/21 08:00 Hydralazine 10 Mg Tablet PO 10 mg TID MARELY Administration Vancomycin HCl 1,500 mg in 500 mls @ 333.333 mls/hr 04/27/21 10:00 04/29/21 07:57 Vancomycin 1,500 Mg/D5w 500 Ml IVPB Infused Q8H MARELY Infusion Ceftriaxone Sodium 2 gm in 100 mls @ 200 mls/hr 04/28/21 18:00 04/28/21 17:12 Rocephin 2 Gm/D5w 100 Ml IVPB 200 mls/hr Q24H MARELY Administration Insulin Aspart 6 units 04/27/21 08:00 04/29/21 08:03 Insulin Aspart (*Bkc) 100 Units/Ml 0.05 units/kg (6 units) 6 units SUB-Q Administration TIDWM MARELY Latanoprost 1 drop 04/27/21 09:00 04/29/21 08:01 Latanoprost 0.005% Op Soln 2.5 Ml Btl EACH EYE 1 drop DAILY MARELY Administration Lisinopril 30 mg 04/27/21 09:00 04/29/21 08:01 Lisinopril 10 Mg Tablet PO 30 mg DAILY MARELY Administration Loratadine 10 mg 04/27/21 09:00
[2021-04-29 11:48] LABS: Glucose Point of Care 158 mg/dl (65-105)
--- NOTE | 2021-04-29 14:30 | PM.IMPN ---
Progress Note: A&P Assessment and Plan (1) Skin ulcer of left great toe: Qualifiers: Non-pressure ulcer stage: with fat layer exposed Qualified Code(s): L97.522 - Non-pressure chronic ulcer of other part of left foot with fat layer exposed Code(s): L97.529 - Non-pressure chronic ulcer of other part of left foot with unspecified severity Status: Acute Assessment and Plan: X-ray showing no evidence of osteomyelitis. Polyarticular osteoarthritis. Concerns for cellulitis from trauma and history of diabetes. CT foot ordered and showing no osteomyelitis. Will continue with treatment for Cellulitis and leg edema. Infectious disease evaluated the patient and made adjustments to IV Rocephin 2 g Q 24 hours and continued on vancomycin, recommends once white blood cell count is back to normal the patient can be converted to oral cephalexin and Bactrim DS. Continue IV antibiotics at this time with vancomycin (#3) and Day #1 Cefepime --> Rocephin Blood cultures show no growth to date CRP coming down with current treatment Surgery was consulted and feels there is no need for further debridement at this time. Plans for Silver gel and dressing changes daily. Continue monitoring. Vital signs. Appreciate surgery and Infectious Disease recommendations. (2) Cellulitis: Qualifiers: Laterality: left Site of cellulitis: extremity Site of cellulitis of extremity: lower extremity Qualified Code(s): L03.116 - Cellulitis of left lower limb Code(s): L03.90 - Cellulitis, unspecified Status: Acute Assessment and Plan: See above. (3) Congestive heart failure: Code(s): I50.9 - Heart failure, unspecified Status: Acute Assessment and Plan: Acute. Patient reports history of congestive heart failure since 2012. Unable to tell me if systolic versus diastolic. He states he follows up with a manufacturing controller at [facility]. He is so-so be on Lasix daily but has been out of his medications since April 10. Echocardiogram pending to decide if his congestive heart failure is related to systolic versus diastolic dysfunction Due to lower extremity pitting edema bilaterally left greater than right will start IV Lasix 40 mg b.i.d. (#2) diuresing well. Will check weights daily and strict intake and output Continue on metoprolol, lisinopril at this time. Continue monitoring renal function electrolytes with diuresis (4) Chest pain: Code(s): R07.9 - Chest pain, unspecified Status: Acute Assessment and Plan: Patient is reporting some left-sided chest pain which he states he has when he does not take his metoprolol. He states he has had this chest pain since April 10 which is the last time he took his metoprolol. The patient did not take his metoprolol yesterday because he refused the medication because he was tired and wanted to sleep. From what the patient tells me a sounds like he has a long history of coronary artery disease and follows up with a manufacturing controller at [facility] Will continue his home medications Check EKG, troponin, continue monitoring on telemetry If any worsening chest pain, abnormality will consider Cardiology consultation. (5) Slurred speech: Code(s): R47.81 - Slurred speech Status: Acute Assessment and Plan: 04/27/24 at 1230: I was called by the patient's nurse to his bedside because the patient said he was having trouble with his speech. Upon my evaluation it does seem like the patient was having some slurred speech from when I evaluated him earlier. Patient said it just started a few minutes ago he is having trouble coming up with the right words and some slurred speech. I further exam and him: No pronator drift. The patient reported sensation mosqueda
--- NOTE | 2021-04-29 16:40 | PC.NURSE ---
I spoke with Ed from pharmacy about the patient's antibiotics. The patient still has the 1000 dose of vancomycin running due to loss of IV access and patient unable to keep arm straight. He stated he will retime the rocephin and to non-administer the vancomycin for 1800.
[2021-04-29 17:16] LABS: Glucose Point of Care 369 mg/dl (65-105)
[2021-04-29] MEDS: INSULIN ASPART (*BKC) 100 UNITS/ML SUB-Q (17:30)
[2021-04-29 17:33] LABS: Vancomycin Trough 32.5 ug/mL (10.0-20.0)
[2021-04-29 18:57] LABS: Glucose Point of Care 299 mg/dl (65-105)
--- NOTE | 2021-04-29 19:45 | PHAR ---
PATIENT HAVING IV ACCESS PROBLEMS. VANCO LEVEL DRAWN WHILE MED INFUSING SO IT'S NOT A VALID TROUGH. PATIENT MISSED A DOSE DUE TO IV ACCESS PROBLEM. NEW LEVEL ORDERED.
[2021-04-29] MEDS: ZOLPIDEM TARTRATE (*CRX) 5 MG TABLET PO (21:10)
[2021-04-29 21:24] LABS: Glucose Point of Care 366 mg/dl (65-105)
[2021-04-30] VITALS (11 sets, daily range): BP systolic 141–157; BP diastolic 68–79; PULSE 75–99; RESP 18–20; TEMP 36.1–36.5; O2SAT 96–97
--- NOTE | 2021-04-30 | ECHO_ITS ---
Patient Info Name: Randy Avelar Age: 66 years : 1955 Gender: Male Ht: 73 in Wt: 311 lbs BSA: 2.75 m2 HR: 80 bpm BP: 151 / 88 mmHg Heart Rhythm: Sinus Rhythm Exam Date: 04/30/2021 8:58 AM Exam Location: [facility] Patient Status: Inpatient Admit Date: 04/28/2021 Staff Ordering Physician: Kely Monsalve PA-C Retail Support Manager: Eren Mcpherson, DANDRE, RT Attending Provider: Kely Monsalve PA-C Exam Type: CA echo doppler color flow Study Info Indications R27.8 - Other lack of coordination Complete two-dimensional, color flow and Doppler transthoracic echocardiogram is performed. Summary 1. Complete two-dimensional, color flow and Doppler transthoracic echocardiogram is performed. 2. Normal left ventricular size with moderate concentric hypertrophy. Mild left ventricular dysfunction with hypokinesis of the basal septal segment. Ejection fraction visually is 45-50%. Grade 2 diastolic dysfunction is present. Abnormal septal motion secondary to bundle branch block. Severely decreased global longitudinal strain of-6% consistent with systolic dysfunction. 3. No significant valve disease. 4. Atrial septum grossly intact by 2D and color flow imaging. No bubble study available. 5. Dilated inferior vena cava with >50% collapse upon inspiration consistent with elevated right atrial pressure, 15 mmHg. 6. Normal sinus rhythm. 7. Technically difficult study. Left Ventricle Left ventricular chamber dimension is normal. Left ventricular systolic function is normal, estimated at 45-50%. There is moderately increased left ventricular wall thickness. Left ventricular septal wall motion is abnormal with septal motion related to bundle branch block. The left ventricular diastolic function is grade II diastolic dysfunction. Global longitudinal strain is severely elevated at 6 %. Right Ventricle Right ventricular chamber dimension is normal. Right ventricular systolic function is normal. Left Atria Left atrial chamber dimension is normal. Right Atria Right atrial chamber dimension is normal. Aortic Valve The aortic valve is trileaflet. There is no aortic valve sclerosis. There is no aortic valve stenosis. There is no aortic valve regurgitation. Pulmonic Valve The pulmonic valve is normal. There is no pulmonic valve stenosis. There is no pulmonic regurgitation. Mitral Valve The mitral valve has normal leaflets. There is no mitral valve stenosis. There is trace mitral valve regurgitation. Tricuspid Valve The tricuspid valve leaflets are normal. There is no significant tricuspid valve stenosis. There is trace tricuspid valve regurgitation. No pulmonary hypertension, estimated pulmonary arterial systolic pressure is Empty. Pericardium/Pleural The pericardium appears normal. There is no pericardial effusion. Inferior Vena Cava Dilated inferior vena cava with >50% collapse upon inspiration consistent with elevated right atrial pressure, 15 mmHg. Aorta The aortic root size at the sinus of Valsalva is normal. The prox ascending aorta size is normal. Left Ventricular Outflow Tract Name Value Normal LVOT 2D LVOT Diameter 2.0 cm LVOT Doppler ------
[2021-04-30 05:19] LABS: Basophils Absolute Auto 0.1 K/mm3 (0.0-0.1); Basophils Percent Auto 0.7 % (0.2-1.2); Eosinophils Absolute Auto 0.6 K/mm3 (0-0.3); Eosinophils Percent Auto 5.1 % (0-4.4); Hematocrit 40.1 % (42.0-52.0); Immature Granulocyte Percent A 0.9 % (0-0.5); Lymphocytes Absolute Auto 1.81 K/mm3 (0.9-3.2); Lymphocytes Percent Auto 16.8 % (18.3-44.2); Mean Corpuscular HGB Conc 32.4 g/dl (32-36); Mean Corpuscular Hemoglobin 30.2 pg (26-34); Mean Platelet Volume 9.7 fl (7.4-10.4); Monocytes Absolute Auto 0.8 K/mm3 (0.1-0.6); Neutrophils Absolute Auto 7.5 K/mm3 (1.3-6.7); Neutrophils Percent Auto 69.5 % (45.5-73.1); Platelet Count Result 273 k/mm3 (150-375); Red Blood Count 4.31 M/mm3 (4.6-6.20); Red Cell Distribution Width 13.2 % (11.5-14.5); White Blood Count 10.8 K/mm3 (4.5-10.0)
[2021-04-30] MEDS: HEPARIN SODIUM 5,000 UNITS/ML VIAL 5000 UNITS SUB-Q ×3 (05:38→20:01)
[2021-04-30 05:40] LABS: Anion Gap 8 mmol/L (8-16); Blood Urea Nitrogen 16 mg/dL (9-20); Calcium 9.2 mg/dL (8.4-10.2); Carbon Dioxide 29 mmol/L (22-30); Chloride 98 mmol/L (98-107); Estimated CRCL calculation 130 ml/min; Estimated Glomerular Filt Rate > 60; Glucose 231 mg/dL (65-110); Potassium 4.1 mmol/L (3.4-5.0); Sodium 135 mmol/L (137-145)
[2021-04-30 06:57] LABS: Glucose Point of Care 201 mg/dl (65-105)
[2021-04-30] MEDS: ASPIRIN 81 MG CHEWABLE TABLET PO (08:24)
[2021-04-30] MEDS: METOPROLOL SUCCINATE EXT REL 100 MG TABCR PO (08:24)
[2021-04-30] MEDS: lisinopriL 10 MG TABLET 30 MG PO (08:24)
[2021-04-30] MEDS: LORATADINE 10 MG TABLET PO (08:24)
[2021-04-30] MEDS: QUEtiapine FUMARATE 100 MG TABLET 400 MG PO (08:25)
[2021-04-30] MEDS: hydrALAZINE 10 MG TABLET PO ×3 (08:25→16:15)
[2021-04-30] MEDS: FUROSEMIDE INJ 40 MG/4 ML VIAL IV PUSH ×2 (08:25→16:15)
[2021-04-30] MEDS: TAMSULOSIN HCL 0.4 MG CAPSULE PO (08:25)
[2021-04-30] MEDS: LATANOPROST 0.005% OP SOLN 2.5 ML BTL 1 DROP EACH EYE (08:27)
[2021-04-30] MEDS: FLUTICASONE PROPIONATE 0.05% NA SPR 16 GM BTL (*BKC) 1 SPRAY NASAL ×2 (08:28→22:12)
[2021-04-30] MEDS: EUCERIN CREAM 120 GM JAR 1 APPLIC TOPICAL (08:28)
[2021-04-30] MEDS: INSULIN ASPART (*BKC) 100 UNITS/ML 6 UNITS SUB-Q ×3 (08:28→18:21)
[2021-04-30] MEDS: INSULIN ASPART (*BKC) 100 UNITS/ML SUB-Q ×2 (08:28→18:21)
[2021-04-30] MEDS: SILVERGEL (ELTA) 45 ML 1 APPLIC TOPICAL ×2 (08:28→16:13)
[2021-04-30 12:09] LABS: Glucose Point of Care 162 mg/dl (65-105)
--- NOTE | 2021-04-30 15:33 | PM.IMPN ---
Progress Note: A&P Assessment and Plan (1) Skin ulcer of left great toe: Qualifiers: Non-pressure ulcer stage: with fat layer exposed Qualified Code(s): L97.522 - Non-pressure chronic ulcer of other part of left foot with fat layer exposed Code(s): L97.529 - Non-pressure chronic ulcer of other part of left foot with unspecified severity Status: Acute Assessment and Plan: X-ray showing no evidence of osteomyelitis. Polyarticular osteoarthritis. Concerns for cellulitis from trauma and history of diabetes. CT foot showing no osteomyelitis. Will continue with treatment for Cellulitis and leg edema. Infectious disease evaluated the patient and made adjustments to IV Rocephin 2 g Q 24 hours and continued on vancomycin, recommends once white blood cell count is back to normal the patient can be converted to oral cephalexin and Bactrim DS. Continue IV antibiotics at this time with vancomycin (# 4) and Day #2 Cefepime --> Rocephin Blood cultures show no growth to date CRP coming down with current treatment Surgery was consulted and feels there is no need for further debridement at this time. Plans for Silver gel and dressing changes daily. Continue monitoring. Vital signs. Appreciate surgery and Infectious Disease recommendations. (2) Cellulitis: Qualifiers: Laterality: left Site of cellulitis: extremity Site of cellulitis of extremity: lower extremity Qualified Code(s): L03.116 - Cellulitis of left lower limb Code(s): L03.90 - Cellulitis, unspecified Status: Acute Assessment and Plan: See above. (3) Congestive heart failure: Code(s): I50.9 - Heart failure, unspecified Status: Acute Assessment and Plan: Acute. Patient reports history of congestive heart failure since 2012. Unable to tell me if systolic versus diastolic. He states he follows up with a ad setter at [facility]. He is so-so be on Lasix daily but has been out of his medications since April 10. Echocardiogram pending to decide if his congestive heart failure is related to systolic versus diastolic dysfunction Due to lower extremity pitting edema bilaterally left greater than right will start IV Lasix 40 mg b.i.d. (#3) diuresing well. Will check weights daily and strict intake and output Continue on metoprolol, lisinopril at this time. Continue monitoring renal function electrolytes with diuresis Echo pending result (4) Chest pain: Code(s): R07.9 - Chest pain, unspecified Status: Acute Assessment and Plan: Patient is reporting some left-sided chest pain which he states he has when he does not take his metoprolol. He states he has had this chest pain since April 10 which is the last time he took his metoprolol. The patient did not take his metoprolol yesterday because he refused the medication because he was tired and wanted to sleep. From what the patient tells me a sounds like he has a long history of coronary artery disease and follows up with a ad setter at [facility] EKG with left bundle-branch block no prior EKG to review. Troponin negative Will continue his home medications continue monitoring on telemetry If any worsening chest pain, abnormality will consider Cardiology consultation. (5) Slurred speech: Code(s): R47.81 - Slurred speech Status: Acute Assessment and Plan: 04/27/24 at 1230: I was called by the patient's nurse to his bedside because the patient said he was having trouble with his speech. Upon my evaluation it does seem like the patient was having some slurred speech from when I evaluated him earlier. Patient said it just started a few minutes ago he is having trouble coming up with the right words and some slurred speech. I further e
[2021-04-30 18:01] LABS: Vancomycin Trough 22.2 ug/mL (10.0-20.0)
[2021-04-30 18:03] LABS: Glucose Point of Care 281 mg/dl (65-105)
[2021-04-30] MEDS: ZOLPIDEM TARTRATE (*CRX) 5 MG TABLET PO (19:58)
[2021-04-30 22:12] LABS: Glucose Point of Care 378 mg/dl (65-105)
[2021-05-01] VITALS (10 sets, daily range): BP systolic 119–167; BP diastolic 64–85; PULSE 68–92; RESP 16–21; TEMP 36.2–36.7; O2SAT 95–100
--- NOTE | 2021-05-01 03:23 | PC.NURSE ---
Pt Found to have urine saturated pants on also onto pad. Pt assisted to bathroom with walker. When staff attempted to help get wet clothes off Pt & help him get cleaned up Pt refused. Threatened to leave AMA if necessary if anyone tried to change him.
[2021-05-01] MEDS: traMADol HCL (*CRX) 50 MG TABLET PO ×2 (04:52→09:07)
[2021-05-01 05:59] LABS: Basophils Absolute Auto 0.1 K/mm3 (0.0-0.1); Eosinophils Absolute Auto 0.5 K/mm3 (0-0.3); Eosinophils Percent Auto 5.2 % (0-4.4); Hematocrit 39.1 % (42.0-52.0); Hemoglobin 12.5 g/dL (14.0-18.0); Immature Granulocyte Absolute 0.09 K/mm3 (0.00-0.031); Immature Granulocyte Percent A 0.9 % (0-0.5); Lymphocytes Absolute Auto 1.37 K/mm3 (0.9-3.2); Lymphocytes Percent Auto 13.5 % (18.3-44.2); Mean Corpuscular Hemoglobin 29.9 pg (26-34); Mean Corpuscular Volume 93.5 fl (80-100); Mean Platelet Volume 9.4 fl (7.4-10.4); Monocytes Absolute Auto 0.8 K/mm3 (0.1-0.6); Monocytes Percent Auto 7.7 % (2.6-8.5); Neutrophils Absolute Auto 7.3 K/mm3 (1.3-6.7); Neutrophils Percent Auto 71.7 % (45.5-73.1); Platelet Count Result 293 k/mm3 (150-375); Red Blood Count 4.18 M/mm3 (4.6-6.20); Red Cell Distribution Width 13.4 % (11.5-14.5); White Blood Count 10.1 K/mm3 (4.5-10.0)
[2021-05-01 06:00] LABS: Alanine Aminotransferase 30 U/L (4-50); Albumin Level 3.6 g/dL (3.5-5.1); Alkaline Phosphatase 117 U/L (38-126); Anion Gap 6 mmol/L (8-16); Aspartate Amino Transferase 27 U/L (17-59); Bilirubin,Total 0.4 mg/dL (0.2-1.3); Blood Urea Nitrogen 22 mg/dL (9-20); Calcium 9.4 mg/dL (8.4-10.2); Carbon Dioxide 34 mmol/L (22-30); Chloride 93 mmol/L (98-107); Estimated CRCL calculation 115 ml/min; Estimated Glomerular Filt Rate > 60; Glucose 218 mg/dL (65-110); Magnesium 1.8 mg/dL (1.6-2.3); Potassium 4.3 mmol/L (3.4-5.0); Sodium 133 mmol/L (137-145)
[2021-05-01] MEDS: HEPARIN SODIUM 5,000 UNITS/ML VIAL 5000 UNITS SUB-Q ×3 (06:14→20:43)
[2021-05-01 06:58] LABS: Glucose Point of Care 185 mg/dl (65-105)
[2021-05-01] MEDS: INSULIN ASPART (*BKC) 100 UNITS/ML 6 UNITS SUB-Q ×3 (08:53→16:55)
[2021-05-01] MEDS: METOPROLOL SUCCINATE EXT REL 100 MG TABCR PO (08:55)
[2021-05-01] MEDS: FLUTICASONE PROPIONATE 0.05% NA SPR 16 GM BTL (*BKC) 1 SPRAY NASAL ×2 (08:55→20:43)
[2021-05-01] MEDS: QUEtiapine FUMARATE 100 MG TABLET 400 MG PO (08:55)
[2021-05-01] MEDS: LORATADINE 10 MG TABLET PO (08:55)
[2021-05-01] MEDS: hydrALAZINE 10 MG TABLET PO ×3 (08:55→16:55)
[2021-05-01] MEDS: LATANOPROST 0.005% OP SOLN 2.5 ML BTL 1 DROP EACH EYE (08:55)
[2021-05-01] MEDS: TAMSULOSIN HCL 0.4 MG CAPSULE PO (08:55)
[2021-05-01] MEDS: FUROSEMIDE INJ 40 MG/4 ML VIAL IV PUSH ×2 (08:55→16:55)
[2021-05-01] MEDS: ASPIRIN 81 MG CHEWABLE TABLET PO (08:56)
[2021-05-01] MEDS: lisinopriL 10 MG TABLET 30 MG PO (08:56)
[2021-05-01] MEDS: EUCERIN CREAM 120 GM JAR 1 APPLIC TOPICAL (08:56)
[2021-05-01] MEDS: SILVERGEL (ELTA) 45 ML 1 APPLIC TOPICAL ×2 (08:57→16:55)
[2021-05-01 11:45] LABS: Glucose Point of Care 199 mg/dl (65-105)
--- NOTE | 2021-05-01 14:46 | PM.IMPN ---
Progress Note: A&P Assessment and Plan (1) Skin ulcer of left great toe: Qualifiers: Non-pressure ulcer stage: with fat layer exposed Qualified Code(s): L97.522 - Non-pressure chronic ulcer of other part of left foot with fat layer exposed Code(s): L97.529 - Non-pressure chronic ulcer of other part of left foot with unspecified severity Status: Acute Assessment and Plan: (2) Cellulitis: Qualifiers: Laterality: left Site of cellulitis: extremity Site of cellulitis of extremity: lower extremity Qualified Code(s): L03.116 - Cellulitis of left lower limb Code(s): L03.90 - Cellulitis, unspecified Status: Acute Assessment and Plan: See above. (3) Congestive heart failure: Code(s): I50.9 - Heart failure, unspecified Status: Acute Assessment and Plan: (4) Chest pain: Code(s): R07.9 - Chest pain, unspecified Status: Acute Assessment and Plan: (5) Slurred speech: Code(s): R47.81 - Slurred speech Status: Acute Assessment and Plan: (6) Type 2 diabetes mellitus: Qualifiers: Diabetes mellitus complication status: with hyperglycemia Diabetes mellitus intermission coordinator insulin use: without intermission coordinator use Qualified Code(s): E11.65 - Type 2 diabetes mellitus with hyperglycemia Code(s): E11.9 - Type 2 diabetes mellitus without complications Status: Acute (7) Legally blind: Code(s): H54.8 - Legal blindness, as defined in [place] Status: Acute Assessment and Plan: Additional Plan X-ray showing no evidence of osteomyelitis. Polyarticular osteoarthritis. Concerns for cellulitis from trauma and history of diabetes. CT foot showing no osteomyelitis. Will continue with treatment for Cellulitis and leg edema. Infectious disease evaluated the patient and made adjustments to IV Rocephin 2 g Q 24 hours and continued on vancomycin, recommends once white blood cell count is back to normal the patient can be converted to oral cephalexin and Bactrim DS. Continue IV antibiotics at this time with vancomycin (# 4) and Day #2 Cefepime --> Rocephin Blood cultures show no growth to date CRP coming down with current treatment Surgery was consulted and feels there is no need for further debridement at this time. Plans for Silver gel and dressing changes daily. Continue monitoring. Vital signs. Appreciate surgery and Infectious Disease recommendations. Acute. Patient reports history of congestive heart failure since 2012. Unable to tell me if systolic versus diastolic. He states he follows up with a immunologist at [facility]. He is so-so be on Lasix daily but has been out of his medications since April 10. Echocardiogram pending to decide if his congestive heart failure is related to systolic versus diastolic dysfunction Due to lower extremity pitting edema bilaterally left greater than right will start IV Lasix 40 mg b.i.d. (#3) diuresing well. Will check weights daily and strict intake and output Continue on metoprolol, lisinopril at this time. Continue monitoring renal function electrolytes with diuresis Echo pending result Patient is reporting some left-sided chest pain which he states he has when he does not take his metoprolol. He states he has had this chest pain since April 10 which is the last time he took his metoprolol. The patient did not take his metoprolol yesterday because he refused the medication because he was tired and wanted to sleep. From what the patient tells me a sounds like he has a long history of coronary artery disease and follows up with a immunologist at [facility] EKG wit
[2021-05-01 14:58] LABS: Alveolar/Arterial O2 Gradient 82.7 mmHg; Base Excess ABG 5.9 mEq/l (+/-2.0); Fractional Inspired Oxygen 21 %; HCO3 ABG 31.3 mEq/l (22.0-26.0); Oxygen Content ABG 16.9 %vol (16.0-22.0); Oxygen Saturation ABG 93.6 % (95.0-100.0); Oxyhemoglobin 91.7 % THb (90.0-100.0); PCO2 ABG 48.3 mmHg (35.0-45.0); PO2 FiO2 Ratio Arterial Blood 3.19 %; Total Hemoglobin 13.1 g/dL (12.0-18.0); pH ABG 7.429 (7.350-7.450)
[2021-05-01 15:00] LABS: Device ROOM AIR; Site Drawn RIGHT BRACHIAL
[2021-05-01 16:50] LABS: Glucose Point of Care 204 mg/dl (65-105)
[2021-05-01] MEDS: INSULIN ASPART (*BKC) 100 UNITS/ML SUB-Q (16:55)
--- NOTE | 2021-05-01 16:58 | PC.NURSE ---
The patient is refusing to allow any staff to clean the patient up. The patient is also refusing to allow staff to apply the cream prescribed to the patients skin tear on his back thigh and today the patient refused dressing change on left diabetic toe.
[2021-05-01] MEDS: ZOLPIDEM TARTRATE (*CRX) 5 MG TABLET PO (20:43)
[2021-05-01 20:54] LABS: Glucose Point of Care 219 mg/dl (65-105)
[2021-05-02] VITALS (10 sets, daily range): BP systolic 118–133; BP diastolic 62–76; PULSE 67–93; RESP 16–20; TEMP 36.1–36.7; O2SAT 94–98
[2021-05-02 06:17] LABS: Basophils Absolute Auto 0.1 K/mm3 (0.0-0.1); Basophils Percent Auto 0.7 % (0.2-1.2); Eosinophils Absolute Auto 0.6 K/mm3 (0-0.3); Eosinophils Percent Auto 5.1 % (0-4.4); Hematocrit 41.8 % (42.0-52.0); Hemoglobin 13.4 g/dL (14.0-18.0); Immature Granulocyte Absolute 0.11 K/mm3 (0.00-0.031); Immature Granulocyte Percent A 0.9 % (0-0.5); Lymphocytes Absolute Auto 1.23 K/mm3 (0.9-3.2); Lymphocytes Percent Auto 10.5 % (18.3-44.2); Mean Corpuscular HGB Conc 32.1 g/dl (32-36); Mean Corpuscular Hemoglobin 29.9 pg (26-34); Mean Corpuscular Volume 93.3 fl (80-100); Mean Platelet Volume 9.5 fl (7.4-10.4); Monocytes Absolute Auto 0.9 K/mm3 (0.1-0.6); Monocytes Percent Auto 7.8 % (2.6-8.5); Neutrophils Absolute Auto 8.8 K/mm3 (1.3-6.7); Platelet Count Result 275 k/mm3 (150-375); Red Blood Count 4.48 M/mm3 (4.6-6.20); Red Cell Distribution Width 13.4 % (11.5-14.5); White Blood Count 11.8 K/mm3 (4.5-10.0)
[2021-05-02] MEDS: HEPARIN SODIUM 5,000 UNITS/ML VIAL 5000 UNITS SUB-Q ×3 (06:26→20:09)
[2021-05-02 06:56] LABS: Anion Gap 7 mmol/L (8-16); Blood Urea Nitrogen 34 mg/dL (9-20); Calcium 9.2 mg/dL (8.4-10.2); Carbon Dioxide 33 mmol/L (22-30); Chloride 91 mmol/L (98-107); Estimated CRCL calculation 48 ml/min; Estimated Glomerular Filt Rate 33; Glucose 181 mg/dL (65-110); Magnesium 1.9 mg/dL (1.6-2.3); Potassium 4.5 mmol/L (3.4-5.0); Sodium 131 mmol/L (137-145)
[2021-05-02 07:00] LABS: Glucose Point of Care 167 mg/dl (65-105)
[2021-05-02 07:43] LABS: Glucose Point of Care 165 mg/dl (65-105)
[2021-05-02 09:11] LABS: Vancomycin Trough 38.9 ug/mL (10.0-20.0)
[2021-05-02] MEDS: FLUTICASONE PROPIONATE 0.05% NA SPR 16 GM BTL (*BKC) 1 SPRAY NASAL ×2 (09:34→20:09)
[2021-05-02] MEDS: TAMSULOSIN HCL 0.4 MG CAPSULE PO (09:34)
[2021-05-02] MEDS: lisinopriL 10 MG TABLET 30 MG PO (09:34)
[2021-05-02] MEDS: LATANOPROST 0.005% OP SOLN 2.5 ML BTL 1 DROP EACH EYE (09:34)
[2021-05-02] MEDS: SACCHAROMYCES BOULARDII 250 MG CAPSULE PO ×3 (09:35→16:47)
[2021-05-02] MEDS: LORATADINE 10 MG TABLET PO (09:35)
[2021-05-02] MEDS: ASPIRIN 81 MG CHEWABLE TABLET PO (09:35)
[2021-05-02] MEDS: hydrALAZINE 10 MG TABLET PO ×3 (09:35→16:47)
[2021-05-02] MEDS: METOPROLOL SUCCINATE EXT REL 100 MG TABCR PO (09:35)
[2021-05-02] MEDS: QUEtiapine FUMARATE 100 MG TABLET 400 MG PO (09:36)
[2021-05-02] MEDS: SILVERGEL (ELTA) 45 ML 1 APPLIC TOPICAL ×2 (09:38→16:47)
[2021-05-02] MEDS: EUCERIN CREAM 120 GM JAR 1 APPLIC TOPICAL (09:39)
[2021-05-02] MEDS: INSULIN GLARGINE (*BKC) 100 UNITS/ML 10 UNITS SUB-Q (09:41)
--- NOTE | 2021-05-02 10:15 | PC.NURSE ---
Pt's significant other, Alicia Hadayelham, called and asked about pt's status as he called her and told Alicia that the doctor told him that his kidneys were failing. I explained to Alicia that the doctor informed pt that some of his lab values had become concerning since there was a signficant change in values in a relatively short period of time. Therefore, we are examining the possibilities as to the cause to then determine a course of treatment. I continued by explaining that one of those values was his creatinine levels. Alicia stated that pt has had confusion issues for about 2 years now and it is getting worse which is why she wanted to talk to me.
--- NOTE | 2021-05-02 10:18 | PC.NURSE ---
I performed a bladder scan of pt at approximately 1000 per doctor's request. Pt had approximately 108 mL of urine in the bladder at that time. Pt stated that he had urinated approximately 30-60 minutes prior to my scanning his bladder.
--- NOTE | 2021-05-02 10:20 | PC.NURSE ---
While conducting the bladder scan as well as again afterwards, pt stated repeatedly that his civil cad designer told me to drink 1-3 beers and 1 glass of red wine every day to help my heart especially since I have such a stressful life. I asked, and did you? to which pt replied, that's what my civil cad designer told me to do.
--- NOTE | 2021-05-02 11:34 | PM.IMPN ---
Progress Note: A&P Assessment and Plan (1) Skin ulcer of left great toe: Qualifiers: Non-pressure ulcer stage: with fat layer exposed Qualified Code(s): L97.522 - Non-pressure chronic ulcer of other part of left foot with fat layer exposed Code(s): L97.529 - Non-pressure chronic ulcer of other part of left foot with unspecified severity Status: Acute Assessment and Plan: (2) Cellulitis: Qualifiers: Laterality: left Site of cellulitis: extremity Site of cellulitis of extremity: lower extremity Qualified Code(s): L03.116 - Cellulitis of left lower limb Code(s): L03.90 - Cellulitis, unspecified Status: Acute Assessment and Plan: See above. (3) Congestive heart failure: Code(s): I50.9 - Heart failure, unspecified Status: Acute Assessment and Plan: (4) Chest pain: Code(s): R07.9 - Chest pain, unspecified Status: Acute Assessment and Plan: (5) Slurred speech: Code(s): R47.81 - Slurred speech Status: Acute Assessment and Plan: (6) Type 2 diabetes mellitus: Qualifiers: Diabetes mellitus intermediate insulin use: without intermediate use Diabetes mellitus complication status: with hyperglycemia Qualified Code(s): E11.65 - Type 2 diabetes mellitus with hyperglycemia Code(s): E11.9 - Type 2 diabetes mellitus without complications Status: Acute (7) Legally blind: Code(s): H54.8 - Legal blindness, as defined in [place] Status: Acute Assessment and Plan: Additional Plan X-ray showing no evidence of osteomyelitis. Polyarticular osteoarthritis. Concerns for cellulitis from trauma and history of diabetes. CT foot showing no osteomyelitis. Will continue with treatment for Cellulitis and leg edema. Infectious disease evaluated the patient and made adjustments to IV Rocephin 2 g Q 24 hours and continued on vancomycin, recommends once white blood cell count is back to normal the patient can be converted to oral cephalexin and Bactrim DS. Continue IV antibiotics at this time with vancomycin (# 4) and Day #2 Cefepime --> Rocephin Blood cultures show no growth to date CRP coming down with current treatment Surgery was consulted and feels there is no need for further debridement at this time. Plans for Silver gel and dressing changes daily. Continue monitoring. Vital signs. Appreciate surgery and Infectious Disease recommendations. Acute. Patient reports history of congestive heart failure since 2012. Unable to tell me if systolic versus diastolic. He states he follows up with a housing management officer at [facility]. He is so-so be on Lasix daily but has been out of his medications since April 10. Echocardiogram pending to decide if his congestive heart failure is related to systolic versus diastolic dysfunction Due to lower extremity pitting edema bilaterally left greater than right will start IV Lasix 40 mg b.i.d. (#3) diuresing well. Will check weights daily and strict intake and output Continue on metoprolol, lisinopril at this time. Continue monitoring renal function electrolytes with diuresis Echo pending result Patient is reporting some left-sided chest pain which he states he has when he does not take his metoprolol. He states he has had this chest pain since April 10 which is the last time he took his metoprolol. The patient did not take his metoprolol yesterday because he refused the medication because he was tired and wanted to sleep. From what the patient tells me a sounds like he has a long history of coronary artery disease and follows up with a housing management officer at [facility] EKG wit
[2021-05-02] MEDS: INSULIN ASPART (*BKC) 100 UNITS/ML 6 UNITS SUB-Q ×2 (12:10→16:45)
[2021-05-02] MEDS: INSULIN ASPART (*BKC) 100 UNITS/ML SUB-Q ×2 (12:11→16:46)
[2021-05-02 12:22] LABS: Glucose Point of Care 222 mg/dl (65-105)
[2021-05-02] MEDS: MORPHINE SULFATE (*CRX) 4 MG/ML INJ IV PUSH (15:00)
[2021-05-02 17:01] LABS: Glucose Point of Care 206 mg/dl (65-105)
[2021-05-02] MEDS: ZOLPIDEM TARTRATE (*CRX) 5 MG TABLET PO (20:09)
[2021-05-02 20:56] LABS: Glucose Point of Care 224 mg/dl (65-105)
[2021-05-02] MEDS: ARTIFICIAL TEARS OPHTH SOLN 15 ML BOTTLE 1 DROP EACH EYE (22:28)
[2021-05-03] VITALS (10 sets, daily range): BP systolic 125–142; BP diastolic 57–76; PULSE 65–79; RESP 16–20; TEMP 36.1–36.4; O2SAT 93–96
[2021-05-03 05:48] LABS: Estimated CRCL calculation 36 ml/min; Estimated Glomerular Filt Rate 24
[2021-05-03] MEDS: HEPARIN SODIUM 5,000 UNITS/ML VIAL 5000 UNITS SUB-Q ×3 (06:32→20:57)
[2021-05-03 06:41] LABS: Glucose Point of Care 152 mg/dl (65-105)
[2021-05-03 06:50] LABS: Vancomycin Trough 30.3 ug/mL (10.0-20.0)
--- NOTE | 2021-05-03 08:07 | PM.IMPN ---
Progress Note: A&P Assessment and Plan (1) Skin ulcer of left great toe: Qualifiers: Non-pressure ulcer stage: with fat layer exposed Qualified Code(s): L97.522 - Non-pressure chronic ulcer of other part of left foot with fat layer exposed Code(s): L97.529 - Non-pressure chronic ulcer of other part of left foot with unspecified severity Status: Acute Assessment and Plan: (2) Cellulitis: Qualifiers: Laterality: left Site of cellulitis: extremity Site of cellulitis of extremity: lower extremity Qualified Code(s): L03.116 - Cellulitis of left lower limb Code(s): L03.90 - Cellulitis, unspecified Status: Acute Assessment and Plan: See above. (3) Congestive heart failure: Code(s): I50.9 - Heart failure, unspecified Status: Acute Assessment and Plan: (4) Chest pain: Code(s): R07.9 - Chest pain, unspecified Status: Acute Assessment and Plan: (5) Slurred speech: Code(s): R47.81 - Slurred speech Status: Acute Assessment and Plan: (6) Type 2 diabetes mellitus: Qualifiers: Diabetes mellitus complication status: with hyperglycemia Diabetes mellitus terminal press operator insulin use: without terminal press operator use Qualified Code(s): E11.65 - Type 2 diabetes mellitus with hyperglycemia Code(s): E11.9 - Type 2 diabetes mellitus without complications Status: Acute (7) Legally blind: Code(s): H54.8 - Legal blindness, as defined in [place] Status: Acute Assessment and Plan: Additional Plan X-ray showing no evidence of osteomyelitis. Polyarticular osteoarthritis. Concerns for cellulitis from trauma and history of diabetes. CT foot showing no osteomyelitis. Will continue with treatment for Cellulitis and leg edema. Infectious disease evaluated the patient and made adjustments to IV Rocephin 2 g Q 24 hours and continued on vancomycin, recommends once white blood cell count is back to normal the patient can be converted to oral cephalexin and Bactrim DS. Continue IV antibiotics at this time with vancomycin (# 4) and Day #2 Cefepime --> Rocephin Blood cultures show no growth to date CRP coming down with current treatment Surgery was consulted and feels there is no need for further debridement at this time. Plans for Silver gel and dressing changes daily. Continue monitoring. Vital signs. Appreciate surgery and Infectious Disease recommendations. Acute. Patient reports history of congestive heart failure since 2012. Unable to tell me if systolic versus diastolic. He states he follows up with a investment executive at [facility]. He is so-so be on Lasix daily but has been out of his medications since April 10. Echocardiogram pending to decide if his congestive heart failure is related to systolic versus diastolic dysfunction Due to lower extremity pitting edema bilaterally left greater than right will start IV Lasix 40 mg b.i.d. (#3) diuresing well. Will check weights daily and strict intake and output Continue on metoprolol, lisinopril at this time. Continue monitoring renal function electrolytes with diuresis Echo pending result Patient is reporting some left-sided chest pain which he states he has when he does not take his metoprolol. He states he has had this chest pain since April 10 which is the last time he took his metoprolol. The patient did not take his metoprolol yesterday because he refused the medication because he was tired and wanted to sleep. From what the patient tells me a sounds like he has a long history of coronary artery disease and follows up with a investment executive at [facility] EKG wit
[2021-05-03] MEDS: SODIUM CHLORIDE 0.9% IV 1,000 ML 50 ML IV CONT (09:00)
[2021-05-03] MEDS: LATANOPROST 0.005% OP SOLN 2.5 ML BTL 1 DROP EACH EYE (09:04)
[2021-05-03] MEDS: ASPIRIN 81 MG CHEWABLE TABLET PO (09:05)
[2021-05-03] MEDS: TAMSULOSIN HCL 0.4 MG CAPSULE PO (09:05)
[2021-05-03] MEDS: FLUTICASONE PROPIONATE 0.05% NA SPR 16 GM BTL (*BKC) 1 SPRAY NASAL ×2 (09:05→20:57)
[2021-05-03] MEDS: lisinopriL 10 MG TABLET 30 MG PO (09:05)
[2021-05-03] MEDS: SACCHAROMYCES BOULARDII 250 MG CAPSULE PO ×3 (09:06→17:05)
[2021-05-03] MEDS: hydrALAZINE 10 MG TABLET PO ×3 (09:06→17:05)
[2021-05-03] MEDS: LORATADINE 10 MG TABLET PO (09:06)
[2021-05-03] MEDS: METOPROLOL SUCCINATE EXT REL 100 MG TABCR PO (09:06)
[2021-05-03] MEDS: QUEtiapine FUMARATE 100 MG TABLET 400 MG PO (09:07)
[2021-05-03] MEDS: EUCERIN CREAM 120 GM JAR 1 APPLIC TOPICAL (09:08)
[2021-05-03] MEDS: SILVERGEL (ELTA) 45 ML 1 APPLIC TOPICAL (09:08)
[2021-05-03] MEDS: traMADol HCL (*CRX) 50 MG TABLET PO ×2 (09:15→21:01)
[2021-05-03] MEDS: INSULIN GLARGINE (*BKC) 100 UNITS/ML 10 UNITS SUB-Q (09:16)
--- NOTE | 2021-05-03 10:58 | PC.NURSE ---
pt is still refusing to be bathed/cleaned up; however, pt has become preoccupied with obtaining an electric razor despite being told by multiple people multiple times that we do not provide electric razors. pt continues to refuse to allow staff to apply ointment (or change dressing) to wounds on thigh or toe or legs insisting I will do it myself.
[2021-05-03 12:04] LABS: Glucose Point of Care 222 mg/dl (65-105)
[2021-05-03] MEDS: INSULIN ASPART (*BKC) 100 UNITS/ML 6 UNITS SUB-Q (12:05)
[2021-05-03] MEDS: INSULIN ASPART (*BKC) 100 UNITS/ML SUB-Q (12:05)
--- NOTE | 2021-05-03 14:31 | PC.NURSE ---
pt again refused to have either insulin or heparin injected in his abdomen stating, it ruins my belly and makes it hurt for months ; pt insists that all injections be given in the arm(s).
[2021-05-03 16:39] LABS: Glucose Point of Care 196 mg/dl (65-105)
[2021-05-03] MEDS: ZOLPIDEM TARTRATE (*CRX) 5 MG TABLET PO (20:57)
[2021-05-03 21:14] LABS: Glucose Point of Care 270 mg/dl (65-105)
[2021-05-04] VITALS (10 sets, daily range): BP systolic 136–153; BP diastolic 69–78; PULSE 66–83; RESP 18–20; TEMP 36.1–37; O2SAT 95–100
[2021-05-04] MEDS: traMADol HCL (*CRX) 50 MG TABLET PO ×2 (03:25→19:27)
[2021-05-04] MEDS: ARTIFICIAL TEARS OPHTH SOLN 15 ML BOTTLE 1 DROP EACH EYE ×2 (04:11→19:29)
[2021-05-04] MEDS: HEPARIN SODIUM 5,000 UNITS/ML VIAL 5000 UNITS SUB-Q ×3 (04:12→19:29)
[2021-05-04] MEDS: SODIUM CHLORIDE 0.9% IV 1,000 ML 50 ML IV CONT (04:25)
[2021-05-04 05:08] LABS: Basophils Absolute Auto 0.1 K/mm3 (0.0-0.1); Basophils Percent Auto 0.7 % (0.2-1.2); Eosinophils Absolute Auto 0.4 K/mm3 (0-0.3); Eosinophils Percent Auto 4.8 % (0-4.4); Hematocrit 38.1 % (42.0-52.0); Hemoglobin 12.4 g/dL (14.0-18.0); Immature Granulocyte Absolute 0.07 K/mm3 (0.00-0.031); Immature Granulocyte Percent A 0.8 % (0-0.5); Lymphocytes Absolute Auto 1.17 K/mm3 (0.9-3.2); Lymphocytes Percent Auto 13.1 % (18.3-44.2); Mean Corpuscular HGB Conc 32.5 g/dl (32-36); Mean Corpuscular Hemoglobin 29.5 pg (26-34); Mean Corpuscular Volume 90.5 fl (80-100); Mean Platelet Volume 9.4 fl (7.4-10.4); Monocytes Absolute Auto 0.9 K/mm3 (0.1-0.6); Monocytes Percent Auto 9.8 % (2.6-8.5); Neutrophils Absolute Auto 6.3 K/mm3 (1.3-6.7); Neutrophils Percent Auto 70.8 % (45.5-73.1); Platelet Count Result 286 k/mm3 (150-375); Red Blood Count 4.21 M/mm3 (4.6-6.20); Red Cell Distribution Width 13.3 % (11.5-14.5); White Blood Count 8.9 K/mm3 (4.5-10.0)
[2021-05-04 05:37] LABS: Alanine Aminotransferase 25 U/L (4-50); Albumin Level 3.8 g/dL (3.5-5.1); Alkaline Phosphatase 103 U/L (38-126); Anion Gap 10 mmol/L (8-16); Aspartate Amino Transferase 27 U/L (17-59); Bilirubin,Total 0.3 mg/dL (0.2-1.3); Blood Urea Nitrogen 52 mg/dL (9-20); Calcium 9.4 mg/dL (8.4-10.2); Carbon Dioxide 32 mmol/L (22-30); Chloride 92 mmol/L (98-107); Creatine Kinase 28 U/L (55-170); Estimated CRCL calculation 33 ml/min; Estimated Glomerular Filt Rate 21; Glucose 185 mg/dL (65-110); Magnesium 2.2 mg/dL (1.6-2.3); Potassium 5.4 mmol/L (3.4-5.0); Sodium 134 mmol/L (137-145)
[2021-05-04 08:03] LABS: Glucose Point of Care 160 mg/dl (65-105)
[2021-05-04] MEDS: TAMSULOSIN HCL 0.4 MG CAPSULE PO (08:24)
[2021-05-04] MEDS: METOPROLOL SUCCINATE EXT REL 100 MG TABCR PO (08:24)
[2021-05-04] MEDS: lisinopriL 10 MG TABLET 30 MG PO (08:25)
[2021-05-04] MEDS: LATANOPROST 0.005% OP SOLN 2.5 ML BTL 1 DROP EACH EYE (08:25)
[2021-05-04] MEDS: FLUTICASONE PROPIONATE 0.05% NA SPR 16 GM BTL (*BKC) 1 SPRAY NASAL ×2 (08:25→19:29)
[2021-05-04] MEDS: QUEtiapine FUMARATE 100 MG TABLET 400 MG PO (08:25)
[2021-05-04] MEDS: SILVERGEL (ELTA) 45 ML 1 APPLIC TOPICAL (08:26)
[2021-05-04] MEDS: SACCHAROMYCES BOULARDII 250 MG CAPSULE PO ×3 (08:26→16:59)
[2021-05-04] MEDS: ASPIRIN 81 MG CHEWABLE TABLET PO (08:26)
[2021-05-04] MEDS: EUCERIN CREAM 120 GM JAR 1 APPLIC TOPICAL (08:26)
[2021-05-04] MEDS: LORATADINE 10 MG TABLET PO (08:26)
[2021-05-04] MEDS: hydrALAZINE 10 MG TABLET PO ×3 (08:26→16:59)
[2021-05-04] MEDS: INSULIN GLARGINE (*BKC) 100 UNITS/ML 10 UNITS SUB-Q (08:27)
--- NOTE | 2021-05-04 09:36 | PM.IMPN ---
Progress Note: A&P Assessment and Plan (1) Skin ulcer of left great toe: Qualifiers: Non-pressure ulcer stage: with fat layer exposed Qualified Code(s): L97.522 - Non-pressure chronic ulcer of other part of left foot with fat layer exposed Code(s): L97.529 - Non-pressure chronic ulcer of other part of left foot with unspecified severity Status: Acute Assessment and Plan: (2) Cellulitis: Qualifiers: Laterality: left Site of cellulitis: extremity Site of cellulitis of extremity: lower extremity Qualified Code(s): L03.116 - Cellulitis of left lower limb Code(s): L03.90 - Cellulitis, unspecified Status: Acute Assessment and Plan: See above. (3) Congestive heart failure: Code(s): I50.9 - Heart failure, unspecified Status: Acute Assessment and Plan: (4) Chest pain: Code(s): R07.9 - Chest pain, unspecified Status: Acute Assessment and Plan: (5) Slurred speech: Code(s): R47.81 - Slurred speech Status: Acute Assessment and Plan: (6) Type 2 diabetes mellitus: Qualifiers: Diabetes mellitus complication status: with hyperglycemia Diabetes mellitus neon sign mechanic insulin use: without neon sign mechanic use Qualified Code(s): E11.65 - Type 2 diabetes mellitus with hyperglycemia Code(s): E11.9 - Type 2 diabetes mellitus without complications Status: Acute (7) Legally blind: Code(s): H54.8 - Legal blindness, as defined in [place] Status: Acute Assessment and Plan: Additional Plan X-ray showing no evidence of osteomyelitis. Polyarticular osteoarthritis. Concerns for cellulitis from trauma and history of diabetes. CT foot showing no osteomyelitis. Will continue with treatment for Cellulitis and leg edema. Infectious disease evaluated the patient and made adjustments to IV Rocephin 2 g Q 24 hours and continued on vancomycin, recommends once white blood cell count is back to normal the patient can be converted to oral cephalexin and Bactrim DS. Continue IV antibiotics at this time with vancomycin (# 4) and Day #2 Cefepime --> Rocephin Blood cultures show no growth to date CRP coming down with current treatment Surgery was consulted and feels there is no need for further debridement at this time. Plans for Silver gel and dressing changes daily. Continue monitoring. Vital signs. Appreciate surgery and Infectious Disease recommendations. Acute. Patient reports history of congestive heart failure since 2012. Unable to tell me if systolic versus diastolic. He states he follows up with a director operating room at [facility]. He is so-so be on Lasix daily but has been out of his medications since April 10. Echocardiogram pending to decide if his congestive heart failure is related to systolic versus diastolic dysfunction Due to lower extremity pitting edema bilaterally left greater than right will start IV Lasix 40 mg b.i.d. (#3) diuresing well. Will check weights daily and strict intake and output Continue on metoprolol, lisinopril at this time. Continue monitoring renal function electrolytes with diuresis Echo pending result Patient is reporting some left-sided chest pain which he states he has when he does not take his metoprolol. He states he has had this chest pain since April 10 which is the last time he took his metoprolol. The patient did not take his metoprolol yesterday because he refused the medication because he was tired and wanted to sleep. From what the patient tells me a sounds like he has a long history of coronary artery disease and follows up with a director operating room at [facility] EKG wit
--- NOTE | 2021-05-04 09:46 | PC.NURSE ---
when assessing pt at approximately 0815, pt stated that his feet do not feel they are getting circulation; I asked him why he thought that to which he replied, they just don't feel like they are gettting any circulation, maybe its my diabetic neuropathy. I stated that was always a possibility. I asked him if he would allow me to remove his sock and boot and examine his feet and legs. Pt stated no he was not willing to do that and no he did not want me to examine him. I reinforced that I needed to examine his feet, apply ointment, change bandages, and try and determine as to why he thought he wasn't getting circulation to which pt replied, maybe later but not now.
--- NOTE | 2021-05-04 10:56 | PM.CNNEP ---
Assessment and Plan Assessment and plan (1) Acute kidney injury: Code(s): N17.9 - Acute kidney failure, unspecified Status: Acute Assessment and Plan: trials has acute kidney injury. His creatinine has risen somewhat rapidly over the last 3 days. The patient does have a foot ulcer and infection however overall he feels so much better now than when he came in, he has no fever, and his white cell count has come down. He never did have positive blood cultures. His blood pressure is generally well controlled so I do not think this is going to be dysautoregulation In a setting where the infection is improving but then suddenly gets renal failure later on then it makes me think of drug reactions. He has received no nephrotoxic medications or contrast. One possibility is that his been getting IV diuretics. Possibly he has pre renal azotemia. another possibility is that since he has eosinophilia he might have a drug reaction in that regard. I will see if we can change his cefepime to something else. Vancomycin is always a possibility as well however usually this is a slower onset of renal failure. Other causes such as glomerulonephritis and vascular disease are less likely in this clinical scenario. Obstruction is always a possibility. Will check a renal ultrasound. Rhabdomyolysis is a possibility as well. Will check a CPK. At this point will see if we can change antibiotics, hold the diuretics, get urine electrolytes today and possibly tomorrow if not prerenal today, and also check a renal ultrasound. We can also hold the lisinopril. Down the line this will need to be restarted however. (2) Skin ulcer of left great toe: Qualifiers: Non-pressure ulcer stage: with fat layer exposed Qualified Code(s): L97.522 - Non-pressure chronic ulcer of other part of left foot with fat layer exposed Code(s): L97.529 - Non-pressure chronic ulcer of other part of left foot with unspecified severity Status: Acute Assessment and Plan: The patient is getting treated for this. It was infected. (3) Eosinophilia: Code(s): D72.10 - Eosinophilia, unspecified Status: Acute Assessment and Plan: Consider changing antibiotics (4) Generalized edema: Code(s): R60.1 - Generalized edema Status: Acute Assessment and Plan: Echocardiogram shows only mildly reduced LVEF. Will check for protein in the urine as well , to rule out nephrotic syndrome. will check a venous Doppler. (5) Hypertension: Code(s): I10 - Essential (primary) hypertension Status: Acute Assessment and Plan: Blood pressure is under pretty good control (6) Congestive heart failure: Code(s): I50.9 - Heart failure, unspecified Status: Acute Assessment and Plan: EF is mildly reduced at around 40% (7) Anemia: Code(s): D64.9 - Anemia, unspecified Status: Acute Assessment and Plan: very mild anemia, probably related to inflammation from infection. (8) Type 2 diabetes mellitus: Qualifiers: Diabetes mellitus mcc insulin use: without mcc use Diabetes mellitus complication status: with hyperglycemia Qualified Code(s): E11.65 - Type 2 diabetes mellitus with hyperglycemia Code(s): E11.9 - Type 2 diabetes mellitus without complications Status: Acute History of Present Illness Reason for Consult Consult date: 05/04/21 Chief Complaint Chief complaint: Cellulitis History of Present Illness Narrative: Randy is a very pleasant 66-year-old gentleman who has multiple medical problems including diabetes for about 6 years with neuropathy, detached retinas with bilateral light sensitivity, hypertension which is generally well controlled, coronary artery disease( he was offered bypass in the past but he opted for medical therapy and lifestyle changes), chronic foot wound, and chronic
[2021-05-04 11:50] LABS: Creatine Kinase 32 U/L (55-170)
[2021-05-04 11:50] LABS: Glucose Point of Care 201 mg/dl (65-105)
[2021-05-04] MEDS: INSULIN ASPART (*BKC) 100 UNITS/ML SUB-Q (12:01)
[2021-05-04] MEDS: INSULIN ASPART (*BKC) 100 UNITS/ML 6 UNITS SUB-Q (12:01)
[2021-05-04 12:27] LABS: Alveolar/Arterial O2 Gradient 31.1 mmHg; Base Excess ABG 5.5 mEq/l (+/-2.0); Fractional Inspired Oxygen 21 %; HCO3 ABG 29.7 mEq/l (22.0-26.0); Oxygen Content ABG 17.2 %vol (16.0-22.0); Oxygen Saturation ABG 94.7 % (95.0-100.0); Oxyhemoglobin 93.1 % THb (90.0-100.0); PCO2 ABG 41.9 mmHg (35.0-45.0); PO2 ABG 68.5 mmHg (80.0-100.0); PO2 FiO2 Ratio Arterial Blood 3.26 %; Total Hemoglobin 13.1 g/dL (12.0-18.0); pH ABG 7.469 (7.350-7.450)
[2021-05-04 12:28] LABS: Device ROOM AIR; Modified Allen's Test Pass; Site Drawn LEFT RADIAL
--- NOTE | 2021-05-04 12:50 | PC.NURSE ---
at approximately 1130, pt became agitated and belligerent particularly towards the SURGICAL INSTRUMENT REPAIR SPECIALIST assigned to his room. this episode initially began because the SURGICAL INSTRUMENT REPAIR SPECIALIST was to collect a clean urine specimen and was instructed by me (the RN) to use a clean container and to clean the groin area prior to obtaining the urine specimen. pt vehemently argued that he has been giving continuous urine samples for 9 days therefore one of those could be used as he is tired of giving samples and not receiving any type of treatment. per the SURGICAL INSTRUMENT REPAIR SPECIALIST, pt then began and continued for over 15 minutes to berate her and refused to provide a sample. Upon being informed by the SURGICAL INSTRUMENT REPAIR SPECIALIST of this incident, the charge nurse and I went to administer pt's noon dose of insulin and discuss the need for a urine sample. Pt was agitated, argumentative, and made several accusations (including but not limited to his assertion of giving continuous urine, blood, et al. samples, not receiving treatment, etc.); I explained to pt that urinating in a urinal container is not giving a urine sample; that I have been his nurse for 3 days and this is the first urine sample that was requested, what the procedure was for obtaining a clean urine sample and why it was needed. I also explained that administering a dose of insulin via injection is not drawing blood. I used this opportunity to further educate the pt as to the facts, findings, procedures, and treatments that pt has received and the reasoning behind each. Pt continued to argue and make further accusations to which I agreed that of course pt has the right to refuse treatment, et al. and absolutely pt has the right to leave AMA if that is what he chooses as there was no point in his remaining in the hospital if he is going to refuse testing, procedures, treatment, et al. Pt then urinated in the clean container and agreed to go to Ultrasound.
--- NOTE | 2021-05-04 13:07 | PC.NURSE ---
pt's contact center manager, Alicia Mccann, called again to discuss pt. Alicia stated that pt called her and made statements that she found confusing and wanted clarification. I updated her as to pt's status and what the current course of treatment and plan were. Alicia then stated that pt has a long history of making false accusations against staff members and he becomes increasing belligerent and his accusations become more frequent and increasing in severity. Alicia continued that pt has done this at three different facilities that she is aware of and multiple times and those various facilities. Alicia concluded with everyone there is so nice I just want you guys to watch out.
[2021-05-04 13:17] LABS: Creatinine Urine 38.9 mg/dL; Total Protein Urine Random 30 mg/dL; Ur Ttl Prot Creatinine Ratio 0.77 mg/mg (0-0.20)
[2021-05-04 13:20] LABS: Sodium Urine Random 41 meq/L
--- NOTE | 2021-05-04 13:50 | PCPTNOTE ---
Attempted to see patient at 1315, patient out of room at this time. Will attempt at a later time.
[2021-05-04 16:38] LABS: Glucose Point of Care 141 mg/dl (65-105)
[2021-05-04] MEDS: ZOLPIDEM TARTRATE (*CRX) 5 MG TABLET PO (19:27)
[2021-05-04 20:25] LABS: Glucose Point of Care 185 mg/dl (65-105)
[2021-05-05] VITALS (10 sets, daily range): BP systolic 145–181; BP diastolic 66–77; PULSE 66–88; RESP 16–20; TEMP 35.9–36.7; O2SAT 96–99
[2021-05-05] MEDS: traMADol HCL (*CRX) 50 MG TABLET PO (05:11)
[2021-05-05] MEDS: ARTIFICIAL TEARS OPHTH SOLN 15 ML BOTTLE 1 DROP EACH EYE (05:11)
[2021-05-05] MEDS: HEPARIN SODIUM 5,000 UNITS/ML VIAL 5000 UNITS SUB-Q ×3 (05:12→20:26)
[2021-05-05 06:29] LABS: Albumin Level 3.6 g/dL (3.5-5.1); Anion Gap 10 mmol/L (8-16); Blood Urea Nitrogen 56 mg/dL (9-20); Carbon Dioxide 30 mmol/L (22-30); Chloride 94 mmol/L (98-107); Estimated CRCL calculation 32 ml/min; Estimated Glomerular Filt Rate 20; Glucose 169 mg/dL (65-110); Phosphorus 6.3 mg/dL (2.5-4.5); Potassium 5.3 mmol/L (3.4-5.0); Sodium 134 mmol/L (137-145)
[2021-05-05 07:13] LABS: Vancomycin Trough 21.4 ug/mL (10.0-20.0)
[2021-05-05 07:55] LABS: Glucose Point of Care 147 mg/dl (65-105)
[2021-05-05] MEDS: INSULIN GLARGINE (*BKC) 100 UNITS/ML 10 UNITS SUB-Q (08:33)
[2021-05-05] MEDS: TAMSULOSIN HCL 0.4 MG CAPSULE PO (08:35)
[2021-05-05] MEDS: LATANOPROST 0.005% OP SOLN 2.5 ML BTL 1 DROP EACH EYE (08:35)
[2021-05-05] MEDS: METOPROLOL SUCCINATE EXT REL 100 MG TABCR PO (08:35)
[2021-05-05] MEDS: ASPIRIN 81 MG CHEWABLE TABLET PO (08:35)
[2021-05-05] MEDS: hydrALAZINE 10 MG TABLET PO ×3 (08:35→17:21)
[2021-05-05] MEDS: FLUTICASONE PROPIONATE 0.05% NA SPR 16 GM BTL (*BKC) 1 SPRAY NASAL ×2 (08:35→20:25)
[2021-05-05] MEDS: SACCHAROMYCES BOULARDII 250 MG CAPSULE PO ×3 (08:36→17:21)
[2021-05-05] MEDS: QUEtiapine FUMARATE 100 MG TABLET 400 MG PO (08:36)
[2021-05-05] MEDS: LORATADINE 10 MG TABLET PO (08:36)
[2021-05-05] MEDS: EUCERIN CREAM 120 GM JAR 1 APPLIC TOPICAL (08:37)
[2021-05-05] MEDS: SILVERGEL (ELTA) 45 ML 1 APPLIC TOPICAL (08:37)
--- NOTE | 2021-05-05 09:07 | PM.PNNEP ---
Progress Note: A&P Assessment and Plan (1) Acute kidney injury: Code(s): N17.9 - Acute kidney failure, unspecified Status: Acute Assessment and Plan: Randy has acute kidney injury. he has peripheral eosinophilia. ultrasound is negative urine electrolytes are non pre renal but he was on furosemide at the time. Will repeat these today. CPK is not elevated the patient has CHERRY. this could be pre renal azotemia from the diuretics. These are on hold. He could have allergic interstitial nephritis because of the peripheral eosinophilia. His antibiotics have been changed. This could be ATN from vancomycin. This has been held. Usually this phenomenon is a more indolent process. Will see how his creatinine is tomorrow. Will recheck urine electrolytes and urinalysis today. discussed with Dr. Heredia yesterday. (2) Skin ulcer of left great toe: Qualifiers: Non-pressure ulcer stage: with fat layer exposed Qualified Code(s): L97.522 - Non-pressure chronic ulcer of other part of left foot with fat layer exposed Code(s): L97.529 - Non-pressure chronic ulcer of other part of left foot with unspecified severity Status: Acute Assessment and Plan: The patient is getting treated for this. It was infected. (3) Eosinophilia: Code(s): D72.10 - Eosinophilia, unspecified Status: Acute Assessment and Plan: Dr. Heredia is changed antibiotics (4) Generalized edema: Code(s): R60.1 - Generalized edema Status: Acute Assessment and Plan: Echocardiogram shows only mildly reduced LVEF. He has a little bit of protein but not enough to cause swelling. venous Doppler negative. (5) Hypertension: Code(s): I10 - Essential (primary) hypertension Status: Acute Assessment and Plan: Blood pressure is under pretty good control (6) Congestive heart failure: Code(s): I50.9 - Heart failure, unspecified Status: Acute Assessment and Plan: EF is mildly reduced at around 40% (7) Anemia: Code(s): D64.9 - Anemia, unspecified Status: Acute Assessment and Plan: very mild anemia, probably related to inflammation from infection. (8) Type 2 diabetes mellitus: Qualifiers: Diabetes mellitus alf insulin use: without exterminator helper termite use Diabetes mellitus complication status: with hyperglycemia Qualified Code(s): E11.65 - Type 2 diabetes mellitus with hyperglycemia Code(s): E11.9 - Type 2 diabetes mellitus without complications Status: Acute Assessment and Plan: On Accu-Cheks and sliding-scale insulin Subjective Date/time seen: 05/05/21 09:07 Interval history: patient is alert. He feels well. Eager for discharge. He is hoping for Thursday. Urinating okay. No rash or itching Review of Systems Cardiovascular: Cardiovascular: Reports no additional cardiovascular complaints Respiratory: Respiratory: Reports no additional respiratory complaints Gastrointestinal: Gastrointestinal: Reports no additional gastrointestinal complaints Genitourinary: Genitourinary: Reports no additional male genitourinary complaints Exam Narrative: WDWN in NAD skin no rash head ncat lungs clear cor reg no rub abd BS+ nontender and soft ext no edema. Objective Data Vital Signs Vital Signs: Vital Signs - 24 hr 05/04/21 12:00 05/04/21 13:55 05/04/21 16:00 Temperature 36.1 C L Pulse Rate 83 80 76 Respiratory Rate 18 Blood Pressure 149/70 H Pulse Oximetry 100 05/04/21 20:00 05/04/21 21:17 05/05/21 00:00 Temperature 37.0 C Pulse Rate 70 74 72 Respiratory Rate 20 Blood Pressure 153/69 H Pulse Oximetry 95 05/05/21 04:00 05/05/21 06:00 05/05/21 08:35 Temperature 36.2 C L Pulse Rate 75 75 80 Respiratory Rate 20 Blood Pressure 181/69 H Pulse Oximetry 99 Intake/Output Intake/Output: Intake & Outpu
--- NOTE | 2021-05-05 09:09 | PM.IMPN ---
Progress Note: A&P Assessment and Plan (1) Skin ulcer of left great toe: Qualifiers: Non-pressure ulcer stage: with fat layer exposed Qualified Code(s): L97.522 - Non-pressure chronic ulcer of other part of left foot with fat layer exposed Code(s): L97.529 - Non-pressure chronic ulcer of other part of left foot with unspecified severity Status: Acute (2) Cellulitis: Qualifiers: Laterality: left Site of cellulitis: extremity Site of cellulitis of extremity: lower extremity Qualified Code(s): L03.116 - Cellulitis of left lower limb Code(s): L03.90 - Cellulitis, unspecified Status: Acute (3) Congestive heart failure: Code(s): I50.9 - Heart failure, unspecified Status: Acute (4) Chest pain: Code(s): R07.9 - Chest pain, unspecified Status: Acute (5) Slurred speech: Code(s): R47.81 - Slurred speech Status: Acute (6) Type 2 diabetes mellitus: Qualifiers: Diabetes mellitus fdc insulin use: without fdc use Diabetes mellitus complication status: with hyperglycemia Qualified Code(s): E11.65 - Type 2 diabetes mellitus with hyperglycemia Code(s): E11.9 - Type 2 diabetes mellitus without complications Status: Acute (7) Legally blind: Code(s): H54.8 - Legal blindness, as defined in [place] Status: Acute Additional Plan X-ray showing no evidence of osteomyelitis. Polyarticular osteoarthritis. Concerns for cellulitis from trauma and history of diabetes. CT foot showing no osteomyelitis. Will continue with treatment for Cellulitis and leg edema. Infectious disease evaluated the patient and made adjustments to IV Rocephin 2 g Q 24 hours and continued on vancomycin, recommends once white blood cell count is back to normal the patient can be converted to oral cephalexin and Bactrim DS. Continue IV antibiotics at this time with vancomycin (# 4) and Day #2 Cefepime --> Rocephin Blood cultures show no growth to date CRP coming down with current treatment Surgery was consulted and feels there is no need for further debridement at this time. Plans for Silver gel and dressing changes daily. Continue monitoring. Vital signs. Appreciate surgery and Infectious Disease recommendations. Acute. Patient reports history of congestive heart failure since 2012. Unable to tell me if systolic versus diastolic. He states he follows up with a core stripper at [facility]. He is so-so be on Lasix daily but has been out of his medications since April 10. Echocardiogram pending to decide if his congestive heart failure is related to systolic versus diastolic dysfunction Due to lower extremity pitting edema bilaterally left greater than right will start IV Lasix 40 mg b.i.d. (#3) diuresing well. Will check weights daily and strict intake and output Continue on metoprolol, lisinopril at this time. Continue monitoring renal function electrolytes with diuresis Echo pending result Patient is reporting some left-sided chest pain which he states he has when he does not take his metoprolol. He states he has had this chest pain since April 10 which is the last time he took his metoprolol. The patient did not take his metoprolol yesterday because he refused the medication because he was tired and wanted to sleep. From what the patient tells me a sounds like he has a long history of coronary artery disease and follows up with a core stripper at [facility] EKG with left bundle-branch block no prior EKG to review. Troponin negative Will continue his home medications continue monitoring on telemetry If any worsening chest pain, abnormality will consider Cardiology consultation. 04/27/24 at 1230: I was called by the patient's nurse to his bedside because the patient said he was having trouble with his speech. Upon my evaluation it does seem like the patient was having some slurred speech from when I evaluated him earlier. Patient said
--- NOTE | 2021-05-05 10:36 | PC.NURSE ---
Margarita Noel, pt's aunt, called this morning to let me know that she spoke with pt and he stated he wanted something but was unable to tell her what it was; she was very concerned his needs were not being met. She asked if I would interrogate pt until he is able to tell me what he wants. I explained to Margarita that pt was in good spirits, he was communicating and although he is having difficulty finding some words to express himself, he was in fact communicating and doing quite well with communication especially considering his recent health incidents. I continued that I had been in pt's room no less than 5 times since 0700 and each time I had asked him if there was anything I could get him or do for him and he cheerfully said no, I'm good. I also clarified that PT and OT had also been in with pt and worked with him this AM and they too think that pt is doing remarkably well under the circumstances and have attempted to make sure his needs are being met as well. I will continue to monitor pt. Margarita also informed me that pt should not be discharged to his home as it was a real mess and that it has a lot of stairs ; and, she does not believe pt can or has been caring for himself appropriately. Margarita stated that a niece is allegedly willing to take pt in and help with home care but at the very least he should go to a rehab facility and not his home.
[2021-05-05 11:32] LABS: Glucose Point of Care 173 mg/dl (65-105)
--- NOTE | 2021-05-05 15:59 | PCPTNOTE ---
Attempted to see patient for Physical Therapy treatment at 1515, patient declined stating he was tired and trying to take a nap.
[2021-05-05 16:17] LABS: Glucose Point of Care 200 mg/dl (65-105)
[2021-05-05 17:42] LABS: Add Urine Microscopic? NO; Appearance Urine Clear (Clear); Bilirubin Urine Negative (Negative); Blood Urine Negative (Negative); Color Urine Yellow (Yellow); Glucose Urine UA Negative (Negative); Ketones Urine Negative (Negative); Leukocyte Esterase Ur Negative LEU/UL (NEGATIVE); Nitrate Urine Negative (Negative); Protein Urine Negative (Negative); Specific Grav Ur 1.009 (1.001-1.035); Urobilinogen Urine Negative mg/dL (<2.0)
[2021-05-05 17:51] LABS: Creatinine Urine 38.5 mg/dL; Total Protein Urine Random 29 mg/dL; Ur Ttl Prot Creatinine Ratio 0.75 mg/mg (0-0.20)
[2021-05-05 17:54] LABS: Sodium Urine Random 40 meq/L
[2021-05-05] MEDS: ZOLPIDEM TARTRATE (*CRX) 5 MG TABLET PO (20:26)
[2021-05-05 20:56] LABS: Glucose Point of Care 196 mg/dl (65-105)
[2021-05-06] VITALS (11 sets, daily range): BP systolic 137–158; BP diastolic 63–72; PULSE 67–85; RESP 17–20; TEMP 36.4–37.2; O2SAT 95–98
[2021-05-06] MEDS: HEPARIN SODIUM 5,000 UNITS/ML VIAL 5000 UNITS SUB-Q ×3 (05:21→21:16)
[2021-05-06 06:07] LABS: Albumin Level 3.9 g/dL (3.5-5.1); Anion Gap 9 mmol/L (8-16); Blood Urea Nitrogen 58 mg/dL (9-20); Calcium 9.1 mg/dL (8.4-10.2); Carbon Dioxide 30 mmol/L (22-30); Chloride 93 mmol/L (98-107); Estimated CRCL calculation 30 ml/min; Estimated Glomerular Filt Rate 19; Glucose 177 mg/dL (65-110); Phosphorus 5.9 mg/dL (2.5-4.5); Potassium 5.6 mmol/L (3.4-5.0); Sodium 132 mmol/L (137-145)
[2021-05-06 06:39] LABS: Basophils Absolute Auto 0.1 K/mm3 (0.0-0.1); Basophils Percent Auto 0.8 % (0.2-1.2); Eosinophils Absolute Auto 0.4 K/mm3 (0-0.3); Eosinophils Percent Auto 3.9 % (0-4.4); Hematocrit 38.4 % (42.0-52.0); Hemoglobin 12.4 g/dL (14.0-18.0); Immature Granulocyte Absolute 0.07 K/mm3 (0.00-0.031); Immature Granulocyte Percent A 0.7 % (0-0.5); Lymphocytes Absolute Auto 1.01 K/mm3 (0.9-3.2); Lymphocytes Percent Auto 9.9 % (18.3-44.2); Mean Corpuscular HGB Conc 32.3 g/dl (32-36); Mean Corpuscular Hemoglobin 29.2 pg (26-34); Mean Corpuscular Volume 90.4 fl (80-100); Mean Platelet Volume 10.2 fl (7.4-10.4); Monocytes Absolute Auto 0.9 K/mm3 (0.1-0.6); Monocytes Percent Auto 9.2 % (2.6-8.5); Neutrophils Absolute Auto 7.7 K/mm3 (1.3-6.7); Neutrophils Percent Auto 75.5 % (45.5-73.1); Platelet Count Result 283 k/mm3 (150-375); Red Blood Count 4.25 M/mm3 (4.6-6.20); Red Cell Distribution Width 13.2 % (11.5-14.5); White Blood Count 10.2 K/mm3 (4.5-10.0)
[2021-05-06 07:30] LABS: Glucose Point of Care 157 mg/dl (65-105)
[2021-05-06] MEDS: LATANOPROST 0.005% OP SOLN 2.5 ML BTL 1 DROP EACH EYE (08:12)
[2021-05-06] MEDS: hydrALAZINE 10 MG TABLET PO ×3 (08:12→16:26)
[2021-05-06] MEDS: SACCHAROMYCES BOULARDII 250 MG CAPSULE PO ×3 (08:12→16:26)
[2021-05-06] MEDS: FLUTICASONE PROPIONATE 0.05% NA SPR 16 GM BTL (*BKC) 1 SPRAY NASAL ×2 (08:12→21:14)
[2021-05-06] MEDS: LORATADINE 10 MG TABLET PO (08:13)
[2021-05-06] MEDS: METOPROLOL SUCCINATE EXT REL 100 MG TABCR PO (08:13)
[2021-05-06] MEDS: ASPIRIN 81 MG CHEWABLE TABLET PO (08:13)
[2021-05-06] MEDS: TAMSULOSIN HCL 0.4 MG CAPSULE PO (08:13)
[2021-05-06] MEDS: QUEtiapine FUMARATE 100 MG TABLET 400 MG PO (08:13)
[2021-05-06] MEDS: EUCERIN CREAM 120 GM JAR 1 APPLIC TOPICAL (08:15)
[2021-05-06] MEDS: SILVERGEL (ELTA) 45 ML 1 APPLIC TOPICAL ×2 (08:15→16:26)
[2021-05-06] MEDS: INSULIN ASPART (*BKC) 100 UNITS/ML 6 UNITS SUB-Q ×3 (08:17→16:32)
[2021-05-06] MEDS: INSULIN GLARGINE (*BKC) 100 UNITS/ML 10 UNITS SUB-Q (08:17)
[2021-05-06 11:54] LABS: Potassium 5.3 mmol/L (3.4-5.0)
[2021-05-06 12:15] LABS: Glucose Point of Care 184 mg/dl (65-105)
--- NOTE | 2021-05-06 12:50 | P.PNIM_ITS ---
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 No signs or symptoms of infection evident on exam today. * Will discontinue IV antibiotics today per Infectious Disease recommendations. Completed a course of IV vancomycin and Primaxin * CT foot reviewed with shallow ulceration and no evidence of osteomyelitis * Blood cultures negative * Seen in consultation by General surgery. No need for debridement. Appreciate general surgery and wound care consultation * Supportive care. Elevate extremity. Analgesics available as needed. Continue local wound care. Continue with walking boot and walker for offloading. (2) Acute kidney injury: Code(s): N17.9 - Acute kidney failure, unspecified Status: Acute Assessment and Plan: Creatinine 0.9 at presentation with slow increase up to 3.3 today. * Thought to been due to diuresis, though creatinine has increased with discontinuation of Lasix * Peripheral eosinophilia noted. Interstitial nephritis considered and antibiotics were adjusted. Antibiotics have since been discontinued * ATN from vancomycin also considered. Antibiotics discontinued as above. * Monitor urine electrolytes. * Appreciate Nephrology consultation (3) Hyperkalemia: Code(s): E87.5 - Hyperkalemia Status: Acute Assessment and Plan: Potassium 5.6 this morning, improved to 5.3 on repeat this afternoon. Likely due to CHERRY as above * Monitor closely * Consider Kayexalate if further increase in serum potassium levels (4) Congestive heart failure: Code(s): I50.9 - Heart failure, unspecified Status: Acute Assessment and Plan: Combined systolic and diastolic. Echocardiogram showed EF 45-50% with grade 2 diastolic dysfunction. Patient asymptomatic at this time. He has not been compliant with his diuretics * Diuretics on hold given acute kidney injury. * Patient appears euvolemic on exam today, with the exception of chronic lower extremity edema * Continue to monitor intake and output, daily weights. Heart healthy diet * Continue metoprolol and lisinopril (5) Type 2 diabetes mellitus: Qualifiers: Diabetes mellitus retirement insulin use: without long wall mining machine helper use Diabetes mellitus complication status: with hyperglycemia Qualified Code(s): E11.65 - Type 2 diabetes mellitus with hyperglycemia Code(s): E11.9 - Type 2 diabetes mellitus without complications Status: Acute Assessment and Plan: A1c is 7.9. Blood sugars reviewed and have been generally well controlled. * Continue Accu-Cheks, sliding scale insulin, hypoglycemic protocol * Continue Lantus 10 units daily * Monitor blood sugar trends * Home glipizide is on hold (6) Hypertension: Code(s): I10 - Essential (primary) hypertension Status: Acute Assessment and Plan: BP reviewed and has been fluctuant. Last BP 158/72. * Continue hydralazine and metoprolol * Furosemide and lisinopril on hold due to CHERRY as above * Monitor BP trends and adjust medications as needed. (7) Slurred speech: Code(s): R47.81 - Slurred speech Status: Acute
--- NOTE | 2021-05-06 12:50 | PM.IMPN ---
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 No signs or symptoms of infection evident on exam today. Will discontinue IV antibiotics today per Infectious Disease recommendations. Completed a course of IV vancomycin and Primaxin CT foot reviewed with shallow ulceration and no evidence of osteomyelitis Blood cultures negative Seen in consultation by General surgery. No need for debridement. Appreciate general surgery and wound care consultation Supportive care. Elevate extremity. Analgesics available as needed. Continue local wound care. Continue with walking boot and walker for offloading. (2) Acute kidney injury: Code(s): N17.9 - Acute kidney failure, unspecified Status: Acute Assessment and Plan: Creatinine 0.9 at presentation with slow increase up to 3.3 today. Thought to been due to diuresis, though creatinine has increased with discontinuation of Lasix Peripheral eosinophilia noted. Interstitial nephritis considered and antibiotics were adjusted. Antibiotics have since been discontinued ATN from vancomycin also considered. Antibiotics discontinued as above. Monitor urine electrolytes. Appreciate Nephrology consultation (3) Hyperkalemia: Code(s): E87.5 - Hyperkalemia Status: Acute Assessment and Plan: Potassium 5.6 this morning, improved to 5.3 on repeat this afternoon. Likely due to CHERRY as above Monitor closely Consider Kayexalate if further increase in serum potassium levels (4) Congestive heart failure: Code(s): I50.9 - Heart failure, unspecified Status: Acute Assessment and Plan: Combined systolic and diastolic. Echocardiogram showed EF 45-50% with grade 2 diastolic dysfunction. Patient asymptomatic at this time. He has not been compliant with his diuretics Diuretics on hold given acute kidney injury. Patient appears euvolemic on exam today, with the exception of chronic lower extremity edema Continue to monitor intake and output, daily weights. Heart healthy diet Continue metoprolol and lisinopril (5) Type 2 diabetes mellitus: Qualifiers: Diabetes mellitus tank terminal gauger insulin use: without tank terminal gauger use Diabetes mellitus complication status: with hyperglycemia Qualified Code(s): E11.65 - Type 2 diabetes mellitus with hyperglycemia Code(s): E11.9 - Type 2 diabetes mellitus without complications Status: Acute Assessment and Plan: A1c is 7.9. Blood sugars reviewed and have been generally well controlled. Continue Accu-Cheks, sliding scale insulin, hypoglycemic protocol Continue Lantus 10 units daily Monitor blood sugar trends Home glipizide is on hold (6) Hypertension: Code(s): I10 - Essential (primary) hypertension Status: Acute Assessment and Plan: BP reviewed and has been fluctuant. Last BP 158/72. Continue hydralazine and metoprolol Furosemide and lisinopril on hold due to CHERRY as above Monitor BP trends and adjust medications as needed. (7) Slurred speech: Code(s): R47.81 - Slurred speech Status: Acute Assessment and Plan: Resolved. Onset 04/27/2021 with normal neuro exam. Patient declines a head CT at that time. Likely due to sleep deprivation. No evidence of SIRS speech on my exam today. (8) Chest pain: Code(s): R07.9 - Chest pain, unspecified Status: Acute Assessment and Plan: Resolved. Troponin negative. Continue aspirin for his history of coronary artery disease Continue with outpa
--- NOTE | 2021-05-06 15:43 | P.PNNP_ITS ---
Progress Note: A&P Assessment and Plan (1) Acute kidney injury: Code(s): N17.9 - Acute kidney failure, unspecified Status: Acute Assessment and Plan: * etiology not clear... * evaluation to date demonstrates: - renal ultrasound without obstruction - non-prerenal urine electrolytes x 2 - CPK not elevated - peripheral eosinophilia noted (possibly AIN?) * possible prerenal azotemia from diuretic use (on hold) * AIN possible -- antibiotics already changed * ATN from vancomycin (usually more slow indolent process) or from infection(?) * follow trend of creatinine and UOP (2) Skin ulcer of left great toe: Qualifiers: Non-pressure ulcer stage: with fat layer exposed Qualified Code(s): L97.522 - Non-pressure chronic ulcer 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 (4) Hypertension: Code(s): I10 - Essential (primary) hypertension Status: Chronic Assessment and Plan: * reasonable control at this time * follow trend of hemodynamics (5) Congestive heart failure: Code(s): I50.9 - Heart failure, unspecified Status: Acute Assessment and Plan: * echo with mildly reduced EF ~ 40% * follow volume/respiratory status (6) Anemia: Code(s): D64.9 - Anemia, unspecified Status: Acute Assessment and Plan: * likely due to CHERRY and inflammation from infection * follow H/H (7) Type 2 diabetes mellitus: Qualifiers: Diabetes mellitus complication status: with hyperglycemia Diabetes mellitus half-way insulin use: without intermediate manager use Qualified Code(s): E11.65 - Type 2 diabetes mellitus with hyperglycemia Code(s): E11.9 - Type 2 diabetes mellitus without complications Status: Chronic Assessment and Plan: * follow accuchecks * on SSI and Lantus Will continue to follow Subjective Date/time seen: 05/06/21 15:43 Chart reviewed - assuming care for Dr. Son; he feels reasonably well today at the time of my visit; eating and drinking well and appetite remains good; no apparent distress noted; no events/issues overnight or earlier this AM; does adm it to some neuropathic pain in his LEs but this is not new. Exam Narrative: General: WD/WN male in NAD Heart: normal S1 and S2; no rub Lungs: clear to auscultation Abdomen: soft, nontender, nondistended, positive bowel sounds Extremities: no cyanosis or clubbing; 2+ edema Skin: warm and dry Objective Data Vital Signs Vital Signs: Vital Signs Temp Pulse Resp BP Pulse Ox 05/06/21 14:00 36.6 C 70 18 145/64 H 98 05/06/21 12:12 82 158/72 H 05/06/21 12:00 85 05/06/21 08:13 68 05/06/21 08:00 74 05/06/21 04:16 37.2 C 71 17 137/63 98 05/06/21 04:06 68 05/06/21 00:00 67
--- NOTE | 2021-05-06 15:43 | PM.PNNEP ---
Progress Note: A&P Assessment and Plan (1) Acute kidney injury: Code(s): N17.9 - Acute kidney failure, unspecified Status: Acute Assessment and Plan: etiology not clear... evaluation to date demonstrates: - renal ultrasound without obstruction - non-prerenal urine electrolytes x 2 - CPK not elevated - peripheral eosinophilia noted (possibly AIN?) possible prerenal azotemia from diuretic use (on hold) AIN possible -- antibiotics already changed ATN from vancomycin (usually more slow indolent process) or from infection(?) follow trend of creatinine and UOP (2) Skin ulcer of left great toe: Qualifiers: Non-pressure ulcer stage: with fat layer exposed Qualified Code(s): L97.522 - Non-pressure chronic ulcer of other part of left foot with fat layer exposed Code(s): L97.529 - Non-pressure chronic ulcer of other part of left foot with unspecified severity Status: Acute Assessment and Plan: this was infected on antibiotics local wound care (3) Generalized edema: Code(s): R60.1 - Generalized edema Status: Acute Assessment and Plan: venous dopplers negative for DVT echocardiogram shows only mildly reduced EF some proteinuria but not severe enough for this degree of swelling component of venous insufficiency? (4) Hypertension: Code(s): I10 - Essential (primary) hypertension Status: Chronic Assessment and Plan: reasonable control at this time follow trend of hemodynamics (5) Congestive heart failure: Code(s): I50.9 - Heart failure, unspecified Status: Acute Assessment and Plan: echo with mildly reduced EF ~ 40% follow volume/respiratory status (6) Anemia: Code(s): D64.9 - Anemia, unspecified Status: Acute Assessment and Plan: likely due to CHERRY and inflammation from infection follow H/H (7) Type 2 diabetes mellitus: Qualifiers: Diabetes mellitus complication status: with hyperglycemia Diabetes mellitus terminal operations supervisor insulin use: without terminal operations supervisor use Qualified Code(s): E11.65 - Type 2 diabetes mellitus with hyperglycemia Code(s): E11.9 - Type 2 diabetes mellitus without complications Status: Chronic Assessment and Plan: follow accuchecks on SSI and Lantus Will continue to follow Subjective Date/time seen: 05/06/21 15:43 Chart reviewed - 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 Exam Narrative: General: WD/WN male in NAD Heart: normal S1 and S2; no rub Lungs: clear to auscultation Abdomen: soft, nontender, nondistended, positive bowel sounds Extremities: no cyanosis or clubbing; 2+ edema Skin: warm and dry Objective Data Vital Signs Vital Signs: Vital Signs Temp Pulse Resp BP Pulse Ox 05/06/21 14:00 36.6 C 70 18 145/64 H 98 05/06/21 12:12 82 158/72 H 05/06/21 12:00 85 05/06/21 08:13 68 05/06/21 08:00 74 05/06/21 04:16 37.2 C 71 17 137/63 98 05/06/21 04:06 68 05/06/21 00:00 67 05/05/21 20:11 36.7 C 71 16 145/77 H 98 05/05/21 20:00 71 16 98 Intake/Output Intake/Output: Intake & Output 05/03/21 05/04/21 05/05/21 05/06/21 23:59 23:59 23:59 23:59 Intake Total 1300 3040 2080 1440 Output Total 2250 1725 1700 1200 Balance -950 1315 380 240 Meds/Results Medications: Active Medications Generic Name Dose Route Start Last Admin Trade Name Freq PRN Reason Stop Dose Admin Artificial Tears 1 drop 05/02/21 21:03 05/05/21 05:11 Artificial Tears Ophth Soln 15 Ml Bottle EACH EYE 1 drop QID PRN Administration Dry Eye(s) Aspirin 81 mg
[2021-05-06 16:32] LABS: Glucose Point of Care 212 mg/dl (65-105)
[2021-05-06] MEDS: INSULIN ASPART (*BKC) 100 UNITS/ML SUB-Q (16:32)
[2021-05-06] MEDS: traMADol HCL (*CRX) 50 MG TABLET PO (21:13)
[2021-05-06] MEDS: ZOLPIDEM TARTRATE (*CRX) 5 MG TABLET PO (21:13)
[2021-05-07] VITALS (11 sets, daily range): BP systolic 159–163; BP diastolic 74–84; PULSE 68–82; RESP 18–20; TEMP 35.8–36.1; O2SAT 96–100
[2021-05-07 05:59] LABS: Hematocrit 38.3 % (42.0-52.0); Hemoglobin 12.4 g/dL (14.0-18.0); Mean Corpuscular HGB Conc 32.4 g/dl (32-36); Mean Corpuscular Hemoglobin 29.6 pg (26-34); Mean Corpuscular Volume 91.4 fl (80-100); Platelet Count Result 255 k/mm3 (150-375); Red Blood Count 4.19 M/mm3 (4.6-6.20); Red Cell Distribution Width 13.3 % (11.5-14.5); White Blood Count 8.4 K/mm3 (4.5-10.0)
[2021-05-07 06:21] LABS: Anion Gap 10 mmol/L (8-16); Blood Urea Nitrogen 61 mg/dL (9-20); CRP 7.6 mg/dL (<1.0); Calcium 9.5 mg/dL (8.4-10.2); Carbon Dioxide 32 mmol/L (22-30); Chloride 95 mmol/L (98-107); Estimated CRCL calculation 30 ml/min; Estimated Glomerular Filt Rate 19; Glucose 157 mg/dL (65-110); Potassium 5.5 mmol/L (3.4-5.0); Sodium 137 mmol/L (137-145)
[2021-05-07] MEDS: HEPARIN SODIUM 5,000 UNITS/ML VIAL 5000 UNITS SUB-Q ×3 (06:24→21:33)
[2021-05-07] MEDS: SILVERGEL (ELTA) 45 ML 1 APPLIC TOPICAL ×2 (06:27→16:11)
[2021-05-07 06:55] LABS: Glucose Point of Care 143 mg/dl (65-105)
[2021-05-07] MEDS: SACCHAROMYCES BOULARDII 250 MG CAPSULE PO ×3 (08:05→16:10)
[2021-05-07] MEDS: QUEtiapine FUMARATE 100 MG TABLET 400 MG PO (08:05)
[2021-05-07] MEDS: ASPIRIN 81 MG CHEWABLE TABLET PO (08:06)
[2021-05-07] MEDS: hydrALAZINE 10 MG TABLET PO ×3 (08:06→16:10)
[2021-05-07] MEDS: LORATADINE 10 MG TABLET PO (08:06)
[2021-05-07] MEDS: METOPROLOL SUCCINATE EXT REL 100 MG TABCR PO (08:06)
[2021-05-07] MEDS: TAMSULOSIN HCL 0.4 MG CAPSULE PO (08:06)
[2021-05-07] MEDS: FLUTICASONE PROPIONATE 0.05% NA SPR 16 GM BTL (*BKC) 1 SPRAY NASAL ×2 (08:07→21:30)
[2021-05-07] MEDS: EUCERIN CREAM 120 GM JAR 1 APPLIC TOPICAL (08:08)
[2021-05-07] MEDS: INSULIN ASPART (*BKC) 100 UNITS/ML 6 UNITS SUB-Q ×3 (08:09→16:43)
[2021-05-07] MEDS: INSULIN GLARGINE (*BKC) 100 UNITS/ML 10 UNITS SUB-Q (08:10)
--- NOTE | 2021-05-07 09:53 | P.PNNP_ITS ---
Progress Note: A&P Assessment and Plan (1) Acute kidney injury: Code(s): N17.9 - Acute kidney failure, unspecified Status: Acute Assessment and Plan: * etiology not clear... * evaluation to date demonstrates: - renal ultrasound without obstruction - non-prerenal urine electrolytes x 2 - CPK not elevated - peripheral eosinophilia noted (possibly AIN?) * possible prerenal azotemia from diuretic use (on hold) * AIN possible -- antibiotics already changed * ATN from vancomycin (usually more slow indolent process) or from infection(?) * creatinine appears to have plateaued/peaked at 3.3mg/dl -- may this is just ATN with a slow recovery * watch potassium -- added low K+ to diet * follow trend of creatinine/repeat labs and UOP (2) Skin ulcer of left great toe: Qualifiers: Non-pressure ulcer stage: with fat layer exposed Qualified Code(s): L97.522 - Non-pressure chronic ulcer 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 * may need to restart diuretics soon... (4) Hypertension: Code(s): I10 - Essential (primary) hypertension Status: Chronic Assessment and Plan: * reasonable control at this time * follow trend of hemodynamics (5) Congestive heart failure: Code(s): I50.9 - Heart failure, unspecified Status: Acute Assessment and Plan: * echo with mildly reduced EF ~ 40% * follow volume/respiratory status (6) Anemia: Code(s): D64.9 - Anemia, unspecified Status: Acute Assessment and Plan: * likely due to CHERRY and inflammation from infection * follow H/H (7) Type 2 diabetes mellitus: Qualifiers: Diabetes mellitus exterminator insulin use: without senior living use Diabetes mellitus complication status: with hyperglycemia Qualified Code(s): E11.65 - Type 2 diabetes mellitus with hyperglycemia Code(s): E11.9 - Type 2 diabetes mellitus without complications Status: Chronic Assessment and Plan: * follow accuchecks * on SSI and Lantus Will continue to follow Subjective Date/time seen: 05/07/21 09:53 Only major complaint at the time of my evaluation is that of fatigue/tiredness and fluctuating toe pain which improved with pain medication administration; working with therapy with regard to ambulation/mobility; no events/issues noted overnight or earlier this AM. Exam Narrative: General: WD/WN male in NAD Heart: normal S1 and S2; no rub Lungs: clear to auscultation Abdomen: soft, nontender, nondistended, positive bowel sounds Extremities: no cyanosis or clubbing; 2+ edema Skin: warm and dry Objective Data Vital Signs Vital Signs: Vital Signs Temp Pulse Resp BP Pulse Ox 05/07/21 08:06 80 05/07/21 04:51 36.1 C L 70 20 160/74 H 96 05/07/21 04:00 68 05/07/21 00:00 72
--- NOTE | 2021-05-07 09:53 | PM.PNNEP ---
Progress Note: A&P Assessment and Plan (1) Acute kidney injury: Code(s): N17.9 - Acute kidney failure, unspecified Status: Acute Assessment and Plan: etiology not clear... evaluation to date demonstrates: - renal ultrasound without obstruction - non-prerenal urine electrolytes x 2 - CPK not elevated - peripheral eosinophilia noted (possibly AIN?) possible prerenal azotemia from diuretic use (on hold) AIN possible -- antibiotics already changed ATN from vancomycin (usually more slow indolent process) or from infection(?) creatinine appears to have plateaued/peaked at 3.3mg/dl -- may this is just ATN with a slow recovery watch potassium -- added low K+ to diet follow trend of creatinine/repeat labs and UOP (2) Skin ulcer of left great toe: Qualifiers: Non-pressure ulcer stage: with fat layer exposed Qualified Code(s): L97.522 - Non-pressure chronic ulcer of other part of left foot with fat layer exposed Code(s): L97.529 - Non-pressure chronic ulcer of other part of left foot with unspecified severity Status: Acute Assessment and Plan: this was infected on antibiotics local wound care (3) Generalized edema: Code(s): R60.1 - Generalized edema Status: Acute Assessment and Plan: venous dopplers negative for DVT echocardiogram shows only mildly reduced EF some proteinuria but not severe enough for this degree of swelling component of venous insufficiency? may need to restart diuretics soon... (4) Hypertension: Code(s): I10 - Essential (primary) hypertension Status: Chronic Assessment and Plan: reasonable control at this time follow trend of hemodynamics (5) Congestive heart failure: Code(s): I50.9 - Heart failure, unspecified Status: Acute Assessment and Plan: echo with mildly reduced EF ~ 40% follow volume/respiratory status (6) Anemia: Code(s): D64.9 - Anemia, unspecified Status: Acute Assessment and Plan: likely due to CHERRY and inflammation from infection follow H/H (7) Type 2 diabetes mellitus: Qualifiers: Diabetes mellitus termite inspector insulin use: without termite inspector use Diabetes mellitus complication status: with hyperglycemia Qualified Code(s): E11.65 - Type 2 diabetes mellitus with hyperglycemia Code(s): E11.9 - Type 2 diabetes mellitus without complications Status: Chronic Assessment and Plan: follow accuchecks on SSI and Lantus Will continue to follow Subjective Date/time seen: 05/07/21 09:53 Only major complaint at the time of my evaluation is that of fatigue/tiredness and fluctuating toe pain which improved with pain medication administration; working with therapy with regard to ambulation/mobility; no events/issues noted overnight or earlier this AM. Exam Narrative: General: WD/WN male in NAD Heart: normal S1 and S2; no rub Lungs: clear to auscultation Abdomen: soft, nontender, nondistended, positive bowel sounds Extremities: no cyanosis or clubbing; 2+ edema Skin: warm and dry Objective Data Vital Signs Vital Signs: Vital Signs Temp Pulse Resp BP Pulse Ox 05/07/21 08:06 80 05/07/21 04:51 36.1 C L 70 20 160/74 H 96 05/07/21 04:00 68 05/07/21 00:00 72 05/06/21 20:55 36.4 C 72 20 147/68 H 95 05/06/21 20:00 71 05/06/21 16:00 69 05/06/21 14:00 36.6 C 70 18 145/64 H 98 05/06/21 12:12 82 158/72 H 05/06/21 12:00 85 Intake/Output Intake/Output: Intake & Output 05/04/21 05/05/21 05/06/21 05/07/21 23:59 23:59 23:59 23:59 Intake Total 3040 2080 2040 290 Output Total 1725 1700 2550 1400 Balance 1312 [phone] Meds/Results Medications: Active Medications Generic Name Dose Route Start Last Admin Trade Name Freq PRN Reason Stop Dose Admin Artificial Tears 1 drop
[2021-05-07] MEDS: LATANOPROST 0.005% OP SOLN 2.5 ML BTL 1 DROP EACH EYE (11:08)
[2021-05-07 11:56] LABS: Glucose Point of Care 149 mg/dl (65-105)
[2021-05-07] MEDS: SODIUM POLYSTYRENE SULFONONATE 15 GM/60 ML BTL PO (16:10)
[2021-05-07 16:26] LABS: Glucose Point of Care 194 mg/dl (65-105)
--- NOTE | 2021-05-07 17:01 | P.PNIM_ITS ---
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 No signs or symptoms of infection evident on exam today. * Completed a course of IV vancomycin and Primaxin, discontinued on 05/06/21 * CT foot reviewed with shallow ulceration and no evidence of osteomyelitis * Blood cultures negative * Seen in consultation by General surgery and Infectious disease. Consultation appreciated. No need for debridement. Appreciate general surgery and wound care consultation * Supportive care. Elevate extremity. Analgesics available as needed. Continue local wound care. Continue with walking boot and walker for offloading. (2) Acute kidney injury: Code(s): N17.9 - Acute kidney failure, unspecified Status: Acute Assessment and Plan: Creatinine 0.9 at presentation with slow increase up to 3.3. Unchanged today * Thought to been due to diuresis, though creatinine has increased with discontinuation of Lasix * Peripheral eosinophilia noted. Interstitial nephritis considered and antibiotics were adjusted. Antibiotics have since been discontinued * ATN from vancomycin also considered. Antibiotics discontinued as above. * Monitor urine electrolytes. * Appreciate Nephrology consultation (3) Hyperkalemia: Code(s): E87.5 - Hyperkalemia Status: Acute Assessment and Plan: Potassium 5.5 today Likely due to CHERRY as above * Monitor closely * Administer Kayexalate x1 dose * Low-potassium diet * Appreciate nephrology recommendations (4) Congestive heart failure: Code(s): I50.9 - Heart failure, unspecified Status: Acute Assessment and Plan: Combined systolic and diastolic. Echocardiogram showed EF 45-50% with grade 2 diastolic dysfunction. He has not been compliant with his diuretics at home. He is asymptomatic at this time * Diuretics on hold given acute kidney injury. * Patient appears euvolemic on exam today, with the exception of chronic lower extremity edema * Continue to monitor intake and output, daily weights. Heart healthy diet * Continue metoprolol and lisinopril (5) Type 2 diabetes mellitus: Qualifiers: Diabetes mellitus rn long term care insulin use: without longterm use Diabetes mellitus complication status: with hyperglycemia Qualified Code(s): E11.65 - Type 2 diabetes mellitus with hyperglycemia Code(s): E11.9 - Type 2 diabetes mellitus without complications Status: Acute Assessment and Plan: A1c is 7.9. Blood sugars reviewed and have been generally well controlled. * Continue Accu-Cheks, sliding scale insulin, hypoglycemic protocol * Continue Lantus 10 units daily * Monitor blood sugar trends * Home glipizide is on hold (6) Hypertension: Code(s): I10 - Essential (primary) hypertension Status: Acute Assessment and Plan: BP reviewed and has been fluctuant. Slightly elevated today. Last BP 159/81 * Continue hydralazine and metoprolol * Furosemide and lisinopril on hold due to CHERRY as above * Monitor BP trends and adjust medications as needed. (7) Slurred speech: Code(s): R47.81 - Slurred speech
--- NOTE | 2021-05-07 17:01 | PM.IMPN ---
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 No signs or symptoms of infection evident on exam today. Completed a course of IV vancomycin and Primaxin, discontinued on 05/06/21 CT foot reviewed with shallow ulceration and no evidence of osteomyelitis Blood cultures negative Seen in consultation by General surgery and Infectious disease. Consultation appreciated. No need for debridement. Appreciate general surgery and wound care consultation Supportive care. Elevate extremity. Analgesics available as needed. Continue local wound care. Continue with walking boot and walker for offloading. (2) Acute kidney injury: Code(s): N17.9 - Acute kidney failure, unspecified Status: Acute Assessment and Plan: Creatinine 0.9 at presentation with slow increase up to 3.3. Unchanged today Thought to been due to diuresis, though creatinine has increased with discontinuation of Lasix Peripheral eosinophilia noted. Interstitial nephritis considered and antibiotics were adjusted. Antibiotics have since been discontinued ATN from vancomycin also considered. Antibiotics discontinued as above. Monitor urine electrolytes. Appreciate Nephrology consultation (3) Hyperkalemia: Code(s): E87.5 - Hyperkalemia Status: Acute Assessment and Plan: Potassium 5.5 today Likely due to CHERRY as above Monitor closely Administer Kayexalate x1 dose Low-potassium diet Appreciate nephrology recommendations (4) Congestive heart failure: Code(s): I50.9 - Heart failure, unspecified Status: Acute Assessment and Plan: Combined systolic and diastolic. Echocardiogram showed EF 45-50% with grade 2 diastolic dysfunction. He has not been compliant with his diuretics at home. He is asymptomatic at this time Diuretics on hold given acute kidney injury. Patient appears euvolemic on exam today, with the exception of chronic lower extremity edema Continue to monitor intake and output, daily weights. Heart healthy diet Continue metoprolol and lisinopril (5) Type 2 diabetes mellitus: Qualifiers: Diabetes mellitus salvage determiner insulin use: without salvage determiner use Diabetes mellitus complication status: with hyperglycemia Qualified Code(s): E11.65 - Type 2 diabetes mellitus with hyperglycemia Code(s): E11.9 - Type 2 diabetes mellitus without complications Status: Acute Assessment and Plan: A1c is 7.9. Blood sugars reviewed and have been generally well controlled. Continue Accu-Cheks, sliding scale insulin, hypoglycemic protocol Continue Lantus 10 units daily Monitor blood sugar trends Home glipizide is on hold (6) Hypertension: Code(s): I10 - Essential (primary) hypertension Status: Acute Assessment and Plan: BP reviewed and has been fluctuant. Slightly elevated today. Last BP 159/81 Continue hydralazine and metoprolol Furosemide and lisinopril on hold due to CHERRY as above Monitor BP trends and adjust medications as needed. (7) Slurred speech: Code(s): R47.81 - Slurred speech Status: Acute Assessment and Plan: Resolved. Onset 04/27/2021 with normal neuro exam. Patient declined a head CT at that time. Likely due to sleep deprivation. No evidence of slurred speech on my examinations (8) Chest pain: Code(s): R07.9 - Chest pain, unspecified Status: Acute Assessment and Plan: Resolved. Troponin negative. Continue aspirin for his history of coronary artery disease Contin
[2021-05-07] MEDS: traMADol HCL (*CRX) 50 MG TABLET PO (21:31)
[2021-05-07] MEDS: ZOLPIDEM TARTRATE (*CRX) 5 MG TABLET PO (21:31)
[2021-05-07 21:51] LABS: Glucose Point of Care 255 mg/dl (65-105)
[2021-05-08] VITALS (11 sets, daily range): BP systolic 156–174; BP diastolic 83–90; PULSE 66–83; RESP 18–20; TEMP 36.1–36.8; O2SAT 96–99
[2021-05-08 05:36] LABS: Hematocrit 40.5 % (42.0-52.0); Mean Corpuscular HGB Conc 32.1 g/dl (32-36); Mean Corpuscular Hemoglobin 29.7 pg (26-34); Mean Corpuscular Volume 92.5 fl (80-100); Mean Platelet Volume 9.6 fl (7.4-10.4); Platelet Count Result 244 k/mm3 (150-375); Red Blood Count 4.38 M/mm3 (4.6-6.20); Red Cell Distribution Width 13.2 % (11.5-14.5); White Blood Count 8.5 K/mm3 (4.5-10.0)
[2021-05-08 06:15] LABS: Anion Gap 12 mmol/L (8-16); Blood Urea Nitrogen 62 mg/dL (9-20); Calcium 9.3 mg/dL (8.4-10.2); Carbon Dioxide 30 mmol/L (22-30); Chloride 96 mmol/L (98-107); Estimated CRCL calculation 32 ml/min; Estimated Glomerular Filt Rate 20; Glucose 176 mg/dL (65-110); Potassium 5.1 mmol/L (3.4-5.0); Sodium 138 mmol/L (137-145)
[2021-05-08] MEDS: HEPARIN SODIUM 5,000 UNITS/ML VIAL 5000 UNITS SUB-Q ×3 (06:27→20:56)
[2021-05-08 06:55] LABS: Glucose Point of Care 141 mg/dl (65-105)
[2021-05-08 07:34] LABS: Glucose Point of Care 138 mg/dl (65-105)
[2021-05-08] MEDS: SACCHAROMYCES BOULARDII 250 MG CAPSULE PO ×3 (08:00→16:38)
[2021-05-08] MEDS: FLUTICASONE PROPIONATE 0.05% NA SPR 16 GM BTL (*BKC) 1 SPRAY NASAL ×2 (08:00→20:56)
[2021-05-08] MEDS: LATANOPROST 0.005% OP SOLN 2.5 ML BTL 1 DROP EACH EYE (08:00)
[2021-05-08] MEDS: TAMSULOSIN HCL 0.4 MG CAPSULE PO (08:01)
[2021-05-08] MEDS: QUEtiapine FUMARATE 100 MG TABLET 400 MG PO (08:01)
[2021-05-08] MEDS: LORATADINE 10 MG TABLET PO (08:01)
[2021-05-08] MEDS: hydrALAZINE 10 MG TABLET PO ×3 (08:01→16:38)
[2021-05-08] MEDS: METOPROLOL SUCCINATE EXT REL 100 MG TABCR PO (08:01)
[2021-05-08] MEDS: ASPIRIN 81 MG CHEWABLE TABLET PO (08:01)
[2021-05-08] MEDS: SILVERGEL (ELTA) 45 ML 1 APPLIC TOPICAL ×2 (08:03→16:39)
[2021-05-08] MEDS: EUCERIN CREAM 120 GM JAR 1 APPLIC TOPICAL (08:03)
[2021-05-08] MEDS: INSULIN ASPART (*BKC) 100 UNITS/ML 6 UNITS SUB-Q ×3 (08:04→16:41)
[2021-05-08] MEDS: INSULIN GLARGINE (*BKC) 100 UNITS/ML 13 UNITS SUB-Q (08:04)
--- NOTE | 2021-05-08 09:49 | PCDIET ---
Weekly nutritional screen. Patient is tolerating current diet with adequate intake. No weight loss reported. No nutritional needs at this time.
[2021-05-08 12:10] LABS: Glucose Point of Care 164 mg/dl (65-105)
--- NOTE | 2021-05-08 14:35 | PCPTNOTE ---
Attempted to see patient 2 times for PT session, however patient declined both times. Patient reported he is tired today and would like to sleep.
[2021-05-08 16:42] LABS: Glucose Point of Care 180 mg/dl (65-105)
--- NOTE | 2021-05-08 16:55 | PM.PNNEP ---
Progress Note: A&P Assessment and Plan (1) Acute kidney injury: Code(s): N17.9 - Acute kidney failure, unspecified Status: Acute Assessment and Plan: etiology not clear... evaluation to date demonstrates: - renal ultrasound without obstruction - non-prerenal urine electrolytes x 2 - CPK not elevated - peripheral eosinophilia noted (possibly AIN?) possible prerenal azotemia from diuretic use (on hold) AIN possible -- antibiotics already changed ATN from vancomycin (usually more slow indolent process) or from infection(?) creatinine appears to have plateaued/peaked at 3.3mg/dl -- may this is just ATN with slow recovery watch potassium -- added low K+ to diet follow trend of creatinine/repeat labs and UOP (2) Skin ulcer of left great toe: Qualifiers: Non-pressure ulcer stage: with fat layer exposed Qualified Code(s): L97.522 - Non-pressure chronic ulcer of other part of left foot with fat layer exposed Code(s): L97.529 - Non-pressure chronic ulcer of other part of left foot with unspecified severity Status: Acute Assessment and Plan: this was infected on antibiotics local wound care (3) Generalized edema: Code(s): R60.1 - Generalized edema Status: Acute Assessment and Plan: venous dopplers negative for DVT echocardiogram shows only mildly reduced EF some proteinuria but not severe enough for this degree of swelling component of venous insufficiency? could restart diuretics but he seems to be auto-diuresising -- possible post diuretic phase of ATN? (4) Hypertension: Code(s): I10 - Essential (primary) hypertension Status: Chronic Assessment and Plan: reasonable control at this time follow trend of hemodynamics (5) Congestive heart failure: Code(s): I50.9 - Heart failure, unspecified Status: Acute Assessment and Plan: echo with mildly reduced EF ~ 40% follow volume/respiratory status (6) Anemia: Code(s): D64.9 - Anemia, unspecified Status: Acute Assessment and Plan: likely due to CHERRY and inflammation from infection follow H/H (7) Type 2 diabetes mellitus: Qualifiers: Diabetes mellitus mcc insulin use: without intermodal owner operator truck driver use Diabetes mellitus complication status: with hyperglycemia Qualified Code(s): E11.65 - Type 2 diabetes mellitus with hyperglycemia Code(s): E11.9 - Type 2 diabetes mellitus without complications Status: Chronic Assessment and Plan: follow accuchecks on SSI and Lantus Will continue to follow Subjective Date/time seen: 05/08/21 16:55 Increasing urine output (without diuretics) in the last 24 hours noted; some improvement in kidney function as well; no other acute issues or problems voiced other than fluctuating pain in his toe/foot which is usually relieved with pain medications; no events overnight or earlier this AM. Exam Narrative: General: WD/WN male in NAD Heart: normal S1 and S2; no rub Lungs: clear to auscultation Abdomen: soft, nontender, nondistended, positive bowel sounds Extremities: no cyanosis or clubbing; 2+ edema Skin: warm and intact; dressing in place on toe Objective Data Vital Signs Vital Signs: Vital Signs Temp Pulse Resp BP Pulse Ox 05/08/21 16:00 79 05/08/21 14:30 36.8 C 78 18 170/83 H 99 05/08/21 12:00 83 05/08/21 11:51 74 171/89 H 05/08/21 08:01 74 05/08/21 08:00 76 05/08/21 04:19 36.1 C L 66 20 156/87 H 98 05/08/21 04:00 67 05/08/21 00:00 79 05/07/21 20:23 36.0 C L 72 20 163/79 H 100 05/07/21 20:00 79 Intake/Output Intake/Output: Intake & Output 05/05/21 05/06/21 05/07/21 05/08/21 23:59 23:59 23:59 23:59 Intake Total 0 2040 530 1020 Output Total 1700 2550 2850 2550 Balance 456 -576 -2320 -1530 Meds/Results Me
--- NOTE | 2021-05-08 16:55 | P.PNNP_ITS ---
Progress Note: A&P Assessment and Plan (1) Acute kidney injury: Code(s): N17.9 - Acute kidney failure, unspecified Status: Acute Assessment and Plan: * etiology not clear... * evaluation to date demonstrates: - renal ultrasound without obstruction - non-prerenal urine electrolytes x 2 - CPK not elevated - peripheral eosinophilia noted (possibly AIN?) * possible prerenal azotemia from diuretic use (on hold) * AIN possible -- antibiotics already changed * ATN from vancomycin (usually more slow indolent process) or from infection(?) * creatinine appears to have plateaued/peaked at 3.3mg/dl -- may this is just ATN with slow recovery * watch potassium -- added low K+ to diet * follow trend of creatinine/repeat labs and UOP (2) Skin ulcer of left great toe: Qualifiers: Non-pressure ulcer stage: with fat layer exposed Qualified Code(s): L97.522 - Non-pressure chronic ulcer 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 * could restart diuretics but he seems to be auto-diuresising -- possible post diuretic phase of ATN? (4) Hypertension: Code(s): I10 - Essential (primary) hypertension Status: Chronic Assessment and Plan: * reasonable control at this time * follow trend of hemodynamics (5) Congestive heart failure: Code(s): I50.9 - Heart failure, unspecified Status: Acute Assessment and Plan: * echo with mildly reduced EF ~ 40% * follow volume/respiratory status (6) Anemia: Code(s): D64.9 - Anemia, unspecified Status: Acute Assessment and Plan: * likely due to CHERRY and inflammation from infection * follow H/H (7) Type 2 diabetes mellitus: Qualifiers: Diabetes mellitus chcf insulin use: without regional intermodal truck driver use Diabetes mellitus complication status: with hyperglycemia Qualified Code(s): E11.65 - Type 2 diabetes mellitus with hyperglycemia Code(s): E11.9 - Type 2 diabetes mellitus without complications Status: Chronic Assessment and Plan: * follow accuchecks * on SSI and Lantus Will continue to follow Subjective Date/time seen: 05/08/21 16:55 Increasing urine output (without diuretics) in the last 24 hours noted; some improvement in kidney function as well; no other acute issues or problems voiced other than fluctuating pain in his toe/foot which is usually relieved with pain medications; no events overnight or earlier this AM. Exam Narrative: General: WD/WN male in NAD Heart: normal S1 and S2; no rub Lungs: clear to auscultation Abdomen: soft, nontender, nondistended, positive bowel sounds Extremities: no cyanosis or clubbing; 2+ edema Skin: warm and intact; dressing in place on toe Objective Data Vital Signs Vital Signs: Vital Signs Temp Pulse Resp BP Pulse Ox 05/08/21 16:00 79
--- NOTE | 2021-05-08 17:05 | P.PNIM_ITS ---
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 No signs or symptoms of infection evident. * Completed a course of IV vancomycin and Primaxin, discontinued on 05/06/21 * CT foot reviewed with shallow ulceration and no evidence of osteomyelitis * Blood cultures negative * Seen in consultation by General surgery and Infectious disease. Consultation appreciated. No need for debridement. Appreciate general surgery and wound care consultation * Supportive care. Elevate extremity. Analgesics available as needed. Continue local wound care. Continue with walking boot and walker for offloading. (2) Acute kidney injury: Code(s): N17.9 - Acute kidney failure, unspecified Status: Acute Assessment and Plan: Creatinine 0.9 at presentation with slow increase up to 3.3. Minimal improvement down to 3.1 today. * Thought to be due to diuresis, though creatinine increased with discontinuation of Lasix * Peripheral eosinophilia noted. Interstitial nephritis considered and antibiotics were adjusted. Antibiotics have since been discontinued * ATN from vancomycin also considered. Antibiotics discontinued as above. * Monitor urine electrolytes. * Appreciate Nephrology consultation (3) Hyperkalemia: Code(s): E87.5 - Hyperkalemia Status: Acute Assessment and Plan: Potassium 5.1 today Likely due to CHERRY as above * Monitor closely * Received 1 dose of Kayexalate on 05/07 * Continue low-potassium diet * Appreciate nephrology recommendations (4) Congestive heart failure: Code(s): I50.9 - Heart failure, unspecified Status: Acute Assessment and Plan: Combined systolic and diastolic. Echocardiogram showed EF 45-50% with grade 2 diastolic dysfunction. He had not been compliant with his diuretics at home. He is asymptomatic at this time * Diuretics on hold given acute kidney injury. * Patient appears euvolemic on exam today, with the exception of chronic lower extremity edema * Continue to monitor intake and output, daily weights. Heart healthy diet * Continue metoprolol and lisinopril (5) Type 2 diabetes mellitus: Qualifiers: Diabetes mellitus complication status: with hyperglycemia Diabetes mellitus fdc insulin use: without banking teacher use Qualified Code(s): E11.65 - Type 2 diabetes mellitus with hyperglycemia Code(s): E11.9 - Type 2 diabetes mellitus without complications Status: Acute Assessment and Plan: A1c is 7.9. Blood sugars reviewed and have been reasonable fasting glucose slightly elevated today at 176 * Continue Accu-Cheks, sliding scale insulin, hypoglycemic protocol * Continue Lantus while hospitalized, increased to 13 * Monitor blood sugar trends * Home glipizide is on hold (6) Hypertension: Code(s): I10 - Essential (primary) hypertension Status: Acute Assessment and Plan: BP reviewed and has been fluctuant. Elevated above target today with left BP 170/83. * Continue hydralazine and metoprolol * Furosemide and lisinopril on hold due to CHERRY as above. Resume when clinically appropriate * Monitor BP
--- NOTE | 2021-05-08 17:05 | PM.IMPN ---
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 No signs or symptoms of infection evident. Completed a course of IV vancomycin and Primaxin, discontinued on 05/06/21 CT foot reviewed with shallow ulceration and no evidence of osteomyelitis Blood cultures negative Seen in consultation by General surgery and Infectious disease. Consultation appreciated. No need for debridement. Appreciate general surgery and wound care consultation Supportive care. Elevate extremity. Analgesics available as needed. Continue local wound care. Continue with walking boot and walker for offloading. (2) Acute kidney injury: Code(s): N17.9 - Acute kidney failure, unspecified Status: Acute Assessment and Plan: Creatinine 0.9 at presentation with slow increase up to 3.3. Minimal improvement down to 3.1 today. Thought to be due to diuresis, though creatinine increased with discontinuation of Lasix Peripheral eosinophilia noted. Interstitial nephritis considered and antibiotics were adjusted. Antibiotics have since been discontinued ATN from vancomycin also considered. Antibiotics discontinued as above. Monitor urine electrolytes. Appreciate Nephrology consultation (3) Hyperkalemia: Code(s): E87.5 - Hyperkalemia Status: Acute Assessment and Plan: Potassium 5.1 today Likely due to CHERRY as above Monitor closely Received 1 dose of Kayexalate on 05/07 Continue low-potassium diet Appreciate nephrology recommendations (4) Congestive heart failure: Code(s): I50.9 - Heart failure, unspecified Status: Acute Assessment and Plan: Combined systolic and diastolic. Echocardiogram showed EF 45-50% with grade 2 diastolic dysfunction. He had not been compliant with his diuretics at home. He is asymptomatic at this time Diuretics on hold given acute kidney injury. Patient appears euvolemic on exam today, with the exception of chronic lower extremity edema Continue to monitor intake and output, daily weights. 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 Blood sugars reviewed and have been reasonable fasting glucose slightly elevated today at 176 Continue Accu-Cheks, sliding scale insulin, hypoglycemic protocol Continue Lantus while hospitalized, increased to 13 Monitor blood sugar trends Home glipizide is on hold (6) Hypertension: Code(s): I10 - Essential (primary) hypertension Status: Acute Assessment and Plan: BP reviewed and has been fluctuant. Elevated above target today with left BP 170/83. Continue hydralazine and metoprolol Furosemide and lisinopril on hold due to CHERRY as above. Resume when clinically appropriate Monitor BP trends and adjust medications as needed. (7) Slurred speech: Code(s): R47.81 - Slurred speech Status: Acute Assessment and Plan: Resolved. Onset 04/27/2021 with normal neuro exam. Patient declined a head CT at that time. Likely due to sleep deprivation. No evidence of slurred speech on my examinations (8) Chest pain: Code(s): R07.9 - Chest pain, unspecified Status: Acute Asses
[2021-05-08 20:33] LABS: Vancomycin Trough 18.2 ug/mL (10.0-20.0)
[2021-05-08] MEDS: ZOLPIDEM TARTRATE (*CRX) 5 MG TABLET PO (20:56)
[2021-05-08 21:13] LABS: Glucose Point of Care 227 mg/dl (65-105)
[2021-05-09] VITALS (10 sets, daily range): BP systolic 148–173; BP diastolic 79–87; PULSE 72–86; RESP 16–22; TEMP 35.9–36.3; O2SAT 96–100
[2021-05-09 05:49] LABS: Hematocrit 39.7 % (42.0-52.0); Hemoglobin 12.8 g/dL (14.0-18.0)
[2021-05-09 06:01] LABS: Anion Gap 9 mmol/L (8-16); Blood Urea Nitrogen 60 mg/dL (9-20); Calcium 9.5 mg/dL (8.4-10.2); Carbon Dioxide 31 mmol/L (22-30); Chloride 98 mmol/L (98-107); Estimated CRCL calculation 33 ml/min; Estimated Glomerular Filt Rate 21; Glucose 169 mg/dL (65-110); Potassium 4.8 mmol/L (3.4-5.0); Sodium 138 mmol/L (137-145)
[2021-05-09] MEDS: HEPARIN SODIUM 5,000 UNITS/ML VIAL 5000 UNITS SUB-Q ×3 (06:23→22:21)
[2021-05-09 06:59] LABS: Glucose Point of Care 173 mg/dl (65-105)
[2021-05-09] MEDS: ASPIRIN 81 MG CHEWABLE TABLET PO (08:01)
[2021-05-09] MEDS: hydrALAZINE 10 MG TABLET PO (08:01)
[2021-05-09] MEDS: LATANOPROST 0.005% OP SOLN 2.5 ML BTL 1 DROP EACH EYE (08:02)
[2021-05-09] MEDS: FLUTICASONE PROPIONATE 0.05% NA SPR 16 GM BTL (*BKC) 1 SPRAY NASAL ×2 (08:02→22:22)
[2021-05-09] MEDS: LORATADINE 10 MG TABLET PO (08:02)
[2021-05-09] MEDS: SACCHAROMYCES BOULARDII 250 MG CAPSULE PO ×3 (08:03→16:54)
[2021-05-09] MEDS: QUEtiapine FUMARATE 100 MG TABLET 400 MG PO (08:03)
[2021-05-09] MEDS: METOPROLOL SUCCINATE EXT REL 100 MG TABCR PO (08:04)
[2021-05-09] MEDS: TAMSULOSIN HCL 0.4 MG CAPSULE PO (08:04)
[2021-05-09] MEDS: EUCERIN CREAM 120 GM JAR 1 APPLIC TOPICAL (08:05)
[2021-05-09] MEDS: SILVERGEL (ELTA) 45 ML 1 APPLIC TOPICAL ×2 (08:05→22:21)
[2021-05-09] MEDS: INSULIN ASPART (*BKC) 100 UNITS/ML 6 UNITS SUB-Q ×3 (08:13→16:53)
[2021-05-09] MEDS: INSULIN GLARGINE (*BKC) 100 UNITS/ML 13 UNITS SUB-Q (08:17)
--- NOTE | 2021-05-09 08:17 | P.PNIM_ITS ---
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 * Completed a course of IV vancomycin and Primaxin, discontinued on 05/06/21. No signs/symptoms of infection currently. * CT foot reviewed with shallow ulceration and no evidence of osteomyelitis * Blood cultures negative * Seen in consultation by General surgery and Infectious disease. Recommendations appreciated. No need for debridement and has completed antibiotic therapy as above. * Supportive care. Elevate extremity. Analgesics available as needed. Con tinue local wound care. Continue with walking boot and walker for offloading. (2) Acute kidney injury: Code(s): N17.9 - Acute kidney failure, unspecified Status: Acute Assessment and Plan: Creatinine 0.9 at presentation with slow increase up to 3.3. Minimal improvement down to 3.1 today. * Thought to be due to diuresis, though creatinine increased with discontinuation of Lasix * Peripheral eosinophilia noted. Interstitial nephritis considered and antibiotics were adjusted. Antibiotics have since been discontinued * ATN from vancomycin also considered. Antibiotics discontinued as above. * Monitor urine electrolytes. * Appreciate Nephrology consultation. Discussed case with Dr. Palmer today. May consider kidney biopsy for definitive diagnosis (3) Hyperkalemia: Code(s): E87.5 - Hyperkalemia Status: Acute Assessment and Plan: [place] to be related to CHERRY. Improved. Potassium is 4.8 today. * Monitor closely * Received 1 dose of Kayexalate on 05/07 * Continue low-potassium diet * Appreciate nephrology recommendations (4) Congestive heart failure: Code(s): I50.9 - Heart failure, unspecified Status: Acute Assessment and Plan: Combined systolic and diastolic. Echocardiogram showed EF 45-50% with grade 2 diastolic dysfunction. He had not been compliant with his diuretics at home. He is asymptomatic at this time * Diuretics on hold given acute kidney injury. * Patient appears euvolemic on exam today, with the exception of chronic lower extremity edema * Continue to monitor intake and output, daily weights. Heart healthy diet * Continue metoprolol. Lisinopril on hold due to CHERRY. (5) Type 2 diabetes mellitus: Qualifiers: Diabetes mellitus senior care insulin use: without senior care use Diabetes mellitus complication status: with hyperglycemia Qualified Code(s): E11.65 - Type 2 diabetes mellitus with hyperglycemia Code(s): E11.9 - Type 2 diabetes mellitus without complications Status: Acute Assessment and Plan: A1c is 7.9. Blood sugars reviewed and have been slightly elevated above target. Fasting glucose is 173 today. * Continue Accu-Cheks, high dose sliding scale insulin, hypoglycemic protocol * Continue Lantus 13 units while hospitalized. Adjust dose as needed * Monitor blood sugar trends * Home glipizide is on hold (6) Hypertension: Code(s): I10 - Essential (primary) hypertension Status: Acute Assessment and Plan: BP reviewed and previously was well controlled though with steady increase, now in the 170 systolic.
--- NOTE | 2021-05-09 08:17 | PM.IMPN ---
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 Completed a course of IV vancomycin and Primaxin, discontinued on 05/06/21. No signs/symptoms of infection currently. CT foot reviewed with shallow ulceration and no evidence of osteomyelitis Blood cultures negative Seen in consultation by General surgery and Infectious disease. Recommendations appreciated. No need for debridement and has completed antibiotic therapy as above. Supportive care. Elevate extremity. Analgesics available as needed. Continue local wound care. Continue with walking boot and walker for offloading. (2) Acute kidney injury: Code(s): N17.9 - Acute kidney failure, unspecified Status: Acute Assessment and Plan: Creatinine 0.9 at presentation with slow increase up to 3.3. Minimal improvement down to 3.1 today. Thought to be due to diuresis, though creatinine increased with discontinuation of Lasix Peripheral eosinophilia noted. Interstitial nephritis considered and antibiotics were adjusted. Antibiotics have since been discontinued ATN from vancomycin also considered. Antibiotics discontinued as above. Monitor urine electrolytes. Appreciate Nephrology consultation. Discussed case with Dr. Palmer today. May consider kidney biopsy for definitive diagnosis (3) Hyperkalemia: Code(s): E87.5 - Hyperkalemia Status: Acute Assessment and Plan: [place] to be related to CHERRY. Improved. Potassium is 4.8 today. Monitor closely Received 1 dose of Kayexalate on 05/07 Continue low-potassium diet Appreciate nephrology recommendations (4) Congestive heart failure: Code(s): I50.9 - Heart failure, unspecified Status: Acute Assessment and Plan: Combined systolic and diastolic. Echocardiogram showed EF 45-50% with grade 2 diastolic dysfunction. He had not been compliant with his diuretics at home. He is asymptomatic at this time Diuretics on hold given acute kidney injury. Patient appears euvolemic on exam today, with the exception of chronic lower extremity edema Continue to monitor intake and output, daily weights. Heart healthy diet Continue metoprolol. Lisinopril on hold due to CHERRY. (5) Type 2 diabetes mellitus: Qualifiers: Diabetes mellitus terminal manager insulin use: without half-way use Diabetes mellitus complication status: with hyperglycemia Qualified Code(s): E11.65 - Type 2 diabetes mellitus with hyperglycemia Code(s): E11.9 - Type 2 diabetes mellitus without complications Status: Acute Assessment and Plan: A1c is 7.9. Blood sugars reviewed and have been slightly elevated above target. Fasting glucose is 173 today. Continue Accu-Cheks, high dose sliding scale insulin, hypoglycemic protocol Continue Lantus 13 units while hospitalized. Adjust dose as needed Monitor blood sugar trends Home glipizide is on hold (6) Hypertension: Code(s): I10 - Essential (primary) hypertension Status: Acute Assessment and Plan: BP reviewed and previously was well controlled though with steady increase, now in the 170 systolic. Last BP 173/87. Continue hydralazine and metoprolol. Will increase hydralazine to 25 mg TID Furosemide and lisinopril on hold due to CHERRY as above. Resume when clinically appropriate Monitor BP trends and adjust medications as needed (7) Slurred speech: Code(s): R47.81 - Slurred speech Status: Acute Assessment and Plan: Resolved. Onset 04/27/2021 with normal neuro exam. Melyssa
[2021-05-09] MEDS: hydrALAZINE HCL 25 MG TABLET PO ×2 (12:16→16:54)
[2021-05-09 12:18] LABS: Glucose Point of Care 181 mg/dl (65-105)
--- NOTE | 2021-05-09 15:56 | PM.PNNEP ---
Progress Note: A&P Assessment and Plan (1) Acute kidney injury: Code(s): N17.9 - Acute kidney failure, unspecified Status: Acute Assessment and Plan: etiology not clear... evaluation to date demonstrates: - renal ultrasound without obstruction - non-prerenal urine electrolytes x 2 - CPK not elevated - peripheral eosinophilia noted (possibly AIN?) possible prerenal azotemia from diuretic use (on hold) AIN possible -- antibiotics already changed ATN from vancomycin (usually more slow indolent process) or from infection(?) creatinine appears to have plateaued/peaked at 3.3mg/dl -- may this is just ATN with slow recovery watch potassium -- added low K+ to diet follow trend of creatinine/repeat labs and UOP (2) Skin ulcer of left great toe: Qualifiers: Non-pressure ulcer stage: with fat layer exposed Qualified Code(s): L97.522 - Non-pressure chronic ulcer of other part of left foot with fat layer exposed Code(s): L97.529 - Non-pressure chronic ulcer of other part of left foot with unspecified severity Status: Acute Assessment and Plan: this was infected on antibiotics local wound care (3) Generalized edema: Code(s): R60.1 - Generalized edema Status: Acute Assessment and Plan: venous dopplers negative for DVT echocardiogram shows only mildly reduced EF some proteinuria but not severe enough for this degree of swelling component of venous insufficiency? could restart diuretics but he seems to be auto-diuresising -- possible post diuretic phase of ATN? (4) Hypertension: Code(s): I10 - Essential (primary) hypertension Status: Chronic Assessment and Plan: reasonable control at this time follow trend of hemodynamics (5) Congestive heart failure: Code(s): I50.9 - Heart failure, unspecified Status: Acute Assessment and Plan: echo with mildly reduced EF ~ 40% follow volume/respiratory status (6) Anemia: Code(s): D64.9 - Anemia, unspecified Status: Acute Assessment and Plan: likely due to CHERRY and inflammation from infection follow H/H (7) Type 2 diabetes mellitus: Qualifiers: Diabetes mellitus senior care insulin use: without supervisor intermediates use Diabetes mellitus complication status: with hyperglycemia Qualified Code(s): E11.65 - Type 2 diabetes mellitus with hyperglycemia Code(s): E11.9 - Type 2 diabetes mellitus without complications Status: Chronic Assessment and Plan: follow accuchecks on SSI and Lantus Will continue to follow Subjective Date/time seen: 05/09/21 15:56 Slow and steady improvement in renal function noted; continues to make good urine output as well; pain control satisfactory with current medication regimen; no apparent distress noted at the time of my visit; no events overnight or earlier this AM; eating and drinking well; appetite is good. Exam Narrative: General: WD/WN male in NAD Heart: normal S1 and S2; no rub Lungs: clear to auscultation Abdomen: soft, nontender, nondistended, positive bowel sounds Extremities: no cyanosis or clubbing; 2+ edema Skin: warm and intact; dressing in place on toe Objective Data Vital Signs Vital Signs: Vital Signs Temp Pulse Resp BP Pulse Ox 05/09/21 14:22 35.9 C L 75 16 173/79 H 96 05/09/21 12:00 86 05/09/21 08:15 77 05/09/21 08:04 80 05/09/21 06:00 36.3 C L 73 17 173/87 H 100 05/09/21 04:00 72 05/09/21 00:00 75 05/08/21 21:05 36.4 C L 81 18 174/90 H 96 05/08/21 20:00 81 18 96 Intake/Output Intake/Output: Intake & Output 05/06/21 05/07/21 05/08/21 05/09/21 23:59 23:59 23:59 23:59 Intake Total 2040 530 1020 1080 Output Total 2550 2850 2550 [address] [place] [phone] Meds/Results Medications: Active Medications Generic Name
--- NOTE | 2021-05-09 15:56 | P.PNNP_ITS ---
Progress Note: A&P Assessment and Plan (1) Acute kidney injury: Code(s): N17.9 - Acute kidney failure, unspecified Status: Acute Assessment and Plan: * etiology not clear... * evaluation to date demonstrates: - renal ultrasound without obstruction - non-prerenal urine electrolytes x 2 - CPK not elevated - peripheral eosinophilia noted (possibly AIN?) * possible prerenal azotemia from diuretic use (on hold) * AIN possible -- antibiotics already changed * ATN from vancomycin (usually more slow indolent process) or from infection(?) * creatinine appears to have plateaued/peaked at 3.3mg/dl -- may this is just ATN with slow recovery * watch potassium -- added low K+ to diet * follow trend of creatinine/repeat labs and UOP (2) Skin ulcer of left great toe: Qualifiers: Non-pressure ulcer stage: with fat layer exposed Qualified Code(s): L97.522 - Non-pressure chronic ulcer 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 * could restart diuretics but he seems to be auto-diuresising -- possible post diuretic phase of ATN? (4) Hypertension: Code(s): I10 - Essential (primary) hypertension Status: Chronic Assessment and Plan: * reasonable control at this time * follow trend of hemodynamics (5) Congestive heart failure: Code(s): I50.9 - Heart failure, unspecified Status: Acute Assessment and Plan: * echo with mildly reduced EF ~ 40% * follow volume/respiratory status (6) Anemia: Code(s): D64.9 - Anemia, unspecified Status: Acute Assessment and Plan: * likely due to CHERRY and inflammation from infection * follow H/H (7) Type 2 diabetes mellitus: Qualifiers: Diabetes mellitus prison insulin use: without termite control technician use Diabetes mellitus complication status: with hyperglycemia Qualified Code(s): E11.65 - Type 2 diabetes mellitus with hyperglycemia Code(s): E11.9 - Type 2 diabetes mellitus without complications Status: Chronic Assessment and Plan: * follow accuchecks * on SSI and Lantus Will continue to follow Subjective Date/time seen: 05/09/21 15:56 Slow and steady improvement in renal function noted; continues to make good urine output as well; pain control satisfactory with current medication regimen; no apparent distress noted at the time of my visit; no events overnight or earlier this AM; eating and drinking well; appetite is good. Exam Narrative: General: WD/WN male in NAD Heart: normal S1 and S2; no rub Lungs: clear to auscultation Abdomen: soft, nontender, nondistended, positive bowel sounds Extremities: no cyanosis or clubbing; 2+ edema Skin: warm and intact; dressing in place on toe Objective Data Vital Signs Vital Signs: Vital Signs Temp Pulse Resp BP Pulse Ox 05/09/21 14:22 35.9 C
[2021-05-09 17:15] LABS: Glucose Point of Care 200 mg/dl (65-105)
[2021-05-09] MEDS: ARTIFICIAL TEARS OPHTH SOLN 15 ML BOTTLE 1 DROP EACH EYE (22:22)
[2021-05-09] MEDS: ZOLPIDEM TARTRATE (*CRX) 5 MG TABLET PO (22:26)
[2021-05-09 22:55] LABS: Glucose Point of Care 166 mg/dl (65-105)
[2021-05-10] VITALS (11 sets, daily range): BP systolic 141–176; BP diastolic 70–90; PULSE 73–94; RESP 16–20; TEMP 36.4–37.1; O2SAT 93–100
[2021-05-10 05:34] LABS: Hematocrit 35.8 % (42.0-52.0); Hemoglobin 11.9 g/dL (14.0-18.0); Mean Corpuscular HGB Conc 33.2 g/dl (32-36); Mean Corpuscular Hemoglobin 29.8 pg (26-34); Mean Corpuscular Volume 89.7 fl (80-100); Mean Platelet Volume 9.7 fl (7.4-10.4); Platelet Count Result 223 k/mm3 (150-375); Red Blood Count 3.99 M/mm3 (4.6-6.20); Red Cell Distribution Width 13.1 % (11.5-14.5); White Blood Count 9.5 K/mm3 (4.5-10.0)
[2021-05-10 06:02] LABS: Anion Gap 8 mmol/L (8-16); Blood Urea Nitrogen 59 mg/dL (9-20); Calcium 9.4 mg/dL (8.4-10.2); Carbon Dioxide 31 mmol/L (22-30); Chloride 99 mmol/L (98-107); Estimated CRCL calculation 34 ml/min; Estimated Glomerular Filt Rate 22; Glucose 188 mg/dL (65-110); Potassium 4.6 mmol/L (3.4-5.0); Sodium 138 mmol/L (137-145)
[2021-05-10] MEDS: HEPARIN SODIUM 5,000 UNITS/ML VIAL 5000 UNITS SUB-Q ×3 (07:38→20:57)
[2021-05-10 08:09] LABS: Glucose Point of Care 174 mg/dl (65-105)
[2021-05-10] MEDS: QUEtiapine FUMARATE 100 MG TABLET 400 MG PO (08:22)
[2021-05-10] MEDS: FLUTICASONE PROPIONATE 0.05% NA SPR 16 GM BTL (*BKC) 1 SPRAY NASAL ×2 (08:22→20:55)
[2021-05-10] MEDS: LATANOPROST 0.005% OP SOLN 2.5 ML BTL 1 DROP EACH EYE (08:22)
[2021-05-10] MEDS: ASPIRIN 81 MG CHEWABLE TABLET PO (08:22)
[2021-05-10] MEDS: METOPROLOL SUCCINATE EXT REL 100 MG TABCR PO (08:23)
[2021-05-10] MEDS: LORATADINE 10 MG TABLET PO (08:23)
[2021-05-10] MEDS: SACCHAROMYCES BOULARDII 250 MG CAPSULE PO ×3 (08:24→16:48)
[2021-05-10] MEDS: hydrALAZINE HCL 25 MG TABLET PO (08:24)
[2021-05-10] MEDS: SILVERGEL (ELTA) 45 ML 1 APPLIC TOPICAL ×2 (08:24→20:55)
[2021-05-10] MEDS: EUCERIN CREAM 120 GM JAR 1 APPLIC TOPICAL (08:24)
[2021-05-10] MEDS: TAMSULOSIN HCL 0.4 MG CAPSULE PO (08:25)
[2021-05-10] MEDS: INSULIN ASPART (*BKC) 100 UNITS/ML 6 UNITS SUB-Q ×3 (08:28→16:51)
[2021-05-10] MEDS: INSULIN GLARGINE (*BKC) 100 UNITS/ML 13 UNITS SUB-Q (08:30)
--- NOTE | 2021-05-10 08:59 | P.PNIM_ITS ---
Progress Note: A&P Assessment and Plan (1) Skin ulcer of left great toe: Qualifiers: Non-pressure ulcer stage: with fat layer exposed Qualified Code(s): L97.522 - Non-pressure chronic ulcer of other part of left foot with fat layer exposed Code(s): L97.529 - Non-pressure chronic ulcer of other part of left foot with unspecified severity Status: Acute Assessment and Plan: * 5 mm diabetic ulcer on plantar surface of left great toe. * Completed a course of IV vancomycin and Primaxin, discontinued on 05/06/21. No signs/symptoms of infection * CT foot reviewed with shallow ulceration and no evidence of osteomyelitis from 04/27/21 * Blood cultures negative from 04/27/21 * Seen in consultation by General surgery and Infectious disease. Recommendations appreciated. No need for debridement and has completed antibiotic therapy as above. * Supportive care. Elevate extremity. Analgesics available as needed. Continue local wound care. Continue with walking boot and walker for offloading. (2) Acute kidney injury: Code(s): N17.9 - Acute kidney failure, unspecified Status: Acute Assessment and Plan: * Creatinine 0.9 at presentation with slow increase up to 3.3. Minimal improvement down to 2.9 today. * Thought to be due to diuresis, though creatinine increased with discontinuation of Lasix on 05/02/21 * ATN from vancomycin also considered, DC' on 05/06/21 * Monitor urine electrolytes. 05/05/21 Ur. na 40, Ur Creatinine 38.5, FENa 2.2%, Renal US showed unremarkable kidneys * Appreciate Nephrology consultation, which is considering a kidney biopsy for definitive diagnosis (3) Hyperkalemia: Code(s): E87.5 - Hyperkalemia Status: Acute Assessment and Plan: * [place] to be related to CHERRY. Improved. Potassium is 4.6 today. * Trend labs * Received 1 dose of Kayexalate on 05/07 * Continue low-potassium diet * Appreciate nephrology recommendations (4) Congestive heart failure: Code(s): I50.9 - Heart failure, unspecified Status: Acute Assessment and Plan: * Combined systolic and diastolic. * Echocardiogram showed EF 45-50% with grade 2 diastolic dysfunction. * noncompliant with his diuretics at home. * asymptomatic at this time * Diuretics on hold given acute kidney injury. * chronic lower extremity edema * I&O indicate patient is negative 4L * Continue to trend intake and output, daily weights. Heart healthy diet * Continue metoprolol. Lisinopril on hold due to CHERRY. (5) Type 2 diabetes mellitus: Qualifiers: Diabetes mellitus complication status: with hyperglycemia Diabetes mellitus usp insulin use: without usp use Qualified Code(s): E11.65 - Type 2 diabetes mellitus with hyperglycemia Code(s): E11.9 - Type 2 diabetes mellitus without complications Status: Acute Assessment and Plan: * A1c is 7.9. * Fasting glucose is 188 today. * Continue Accu-Cheks, high dose sliding scale insulin, hypoglycemic protocol * Continue Lantus 13 units while hospitalized. Adjust dose as needed * Trend blood glucose trends * Home glipizide is on hold (6) Hypertension: Code(s): I10 - Essential (primary) hypertension Status: Acute Assessment and Plan: * BP reviewed and previously was well controlled though with steady increase, now in the 170 systolic. Last BP 176/90. * Continue hydralazine and metoprolol. Will increase hydralazine to 50mg TID * Furosemide and lisinopril on hold due to CHERRY as above. Resume when clinically
--- NOTE | 2021-05-10 08:59 | PM.IMPN ---
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 Completed a course of IV vancomycin and Primaxin, discontinued on 05/06/21. No signs/symptoms of infection CT foot reviewed with shallow ulceration and no evidence of osteomyelitis from 04/27/21 Blood cultures negative from 04/27/21 Seen in consultation by General surgery and Infectious disease. Recommendations appreciated. No need for debridement and has completed antibiotic therapy as above. Supportive care. Elevate extremity. Analgesics available as needed. Continue local wound care. Continue with walking boot and walker for offloading. (2) Acute kidney injury: Code(s): N17.9 - Acute kidney failure, unspecified Status: Acute Assessment and Plan: Creatinine 0.9 at presentation with slow increase up to 3.3. Minimal improvement down to 2.9 today. Thought to be due to diuresis, though creatinine increased with discontinuation of Lasix on 05/02/21 ATN from vancomycin also considered, DC' on 05/06/21 Monitor urine electrolytes. 05/05/21 Ur. na 40, Ur Creatinine 38.5, FENa 2.2%, Renal US showed unremarkable kidneys Appreciate Nephrology consultation, which is considering a kidney biopsy for definitive diagnosis (3) Hyperkalemia: Code(s): E87.5 - Hyperkalemia Status: Acute Assessment and Plan: [place] to be related to CHERRY. Improved. Potassium is 4.6 today. Trend labs Received 1 dose of Kayexalate on 05/07 Continue low-potassium diet Appreciate nephrology recommendations (4) Congestive heart failure: Code(s): I50.9 - Heart failure, unspecified Status: Acute Assessment and Plan: Combined systolic and diastolic. Echocardiogram showed EF 45-50% with grade 2 diastolic dysfunction. noncompliant with his diuretics at home. asymptomatic at this time Diuretics on hold given acute kidney injury. chronic lower extremity edema I&O indicate patient is negative 4L Continue to trend intake and output, daily weights. Heart healthy diet Continue metoprolol. Lisinopril on hold due to CHERRY. (5) Type 2 diabetes mellitus: Qualifiers: Diabetes mellitus complication status: with hyperglycemia Diabetes mellitus halfway insulin use: without halfway use Qualified Code(s): E11.65 - Type 2 diabetes mellitus with hyperglycemia Code(s): E11.9 - Type 2 diabetes mellitus without complications Status: Acute Assessment and Plan: A1c is 7.9. Fasting glucose is 188 today. Continue Accu-Cheks, high dose sliding scale insulin, hypoglycemic protocol Continue Lantus 13 units while hospitalized. Adjust dose as needed Trend blood glucose trends Home glipizide is on hold (6) Hypertension: Code(s): I10 - Essential (primary) hypertension Status: Acute Assessment and Plan: BP reviewed and previously was well controlled though with steady increase, now in the 170 systolic. Last BP 176/90. Continue hydralazine and metoprolol. Will increase hydralazine to 50mg TID Furosemide and lisinopril on hold due to CHERRY as above. Resume when clinically appropriate Monitor BP trends and adjust medications as needed (7) Slurred speech: Code(s): R47.81 - Slurred speech Status: Acute Assessment and Plan: Resolved. Onset 04/27/2021 with normal neuro exam. declined a head CT at that time. Likely due to sleep deprivation. No evidence of slurred speech on my examinations (8) Chest pain: Code(s): R07.9 - Chest pain, unspecified
[2021-05-10] MEDS: hydrALAZINE HCL 20 MG/ML VIAL 10 MG IV PUSH (10:17)
[2021-05-10] MEDS: INSULIN ASPART (*BKC) 100 UNITS/ML SUB-Q (12:01)
[2021-05-10 12:23] LABS: Glucose Point of Care 220 mg/dl (65-105)
[2021-05-10] MEDS: hydrALAZINE HCL 25 MG TABLET 50 MG PO ×2 (13:23→16:48)
--- NOTE | 2021-05-10 14:22 | P.PNNP_ITS ---
Progress Note: A&P Assessment and Plan (1) Acute kidney injury: Code(s): N17.9 - Acute kidney failure, unspecified Status: Acute Assessment and Plan: * etiology not clear... * evaluation to date demonstrates: - renal ultrasound without obstruction - non-prerenal urine electrolytes x 2 - CPK not elevated - peripheral eosinophilia noted (possibly AIN?) * possible prerenal azotemia from diuretic use (on hold) * AIN possible -- antibiotics already changed - hesitant to give steroids for fear this may possibly worsen toe infection... * ATN from vancomycin (usually more slow indolent process) or from infection(?) * creatinine appears to have plateaued/peaked at 3.3mg/dl -- may this is just ATN or AIN with slow recovery * watch potassium -- added low K+ to diet * follow trend of creatinine/repeat labs and UOP (2) Skin ulcer of left great toe: Qualifiers: Non-pressure ulcer stage: with fat layer exposed Qualified Code(s): L97.522 - Non-pressure chronic ulcer 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 * could restart diuretics but he seems to be auto-diuresising -- possible post diuretic phase of ATN? (4) Hypertension: Code(s): I10 - Essential (primary) hypertension Status: Chronic Assessment and Plan: * reasonable control at this time but has been rising * not opposed to titration of hydralazine as needed * follow trend of hemodynamics (5) Congestive heart failure: Code(s): I50.9 - Heart failure, unspecified Status: Acute Assessment and Plan: * echo with mildly reduced EF ~ 40% * follow volume/respiratory status (6) Anemia: Code(s): D64.9 - Anemia, unspecified Status: Acute Assessment and Plan: * likely due to CHERRY and inflammation from infection * follow H/H (7) Type 2 diabetes mellitus: Qualifiers: Diabetes mellitus nursing home insulin use: without nursing home use Diabetes mellitus complication status: with hyperglycemia Qualified Code(s): E11.65 - Type 2 diabetes mellitus with hyperglycemia Code(s): E11.9 - Type 2 diabetes mellitus without complications Status: Chronic Assessment and Plan: * follow accuchecks * on SSI and Lantus Will continue to follow Subjective Date/time seen: 05/10/21 14:22 Feels reasonably well at the time of my visit; renal function continues to slowly improve with good urine output; discharge planning has been challenging from review of care coordination/social work specialist notes given his current living situation and refusal for placement. Exam Narrative: General: WD/WN male in NAD Heart: normal S1 and S2; no rub Lungs: clear to auscultation Abdomen: soft, nontender, nondistended, positive bowel sounds Extremities: no cyanosis or clubbing; 1 - 2+ edema Skin: warm and intact; dressing in place on toe Objective Data Vital Signs Vital Signs:
--- NOTE | 2021-05-10 14:22 | PM.PNNEP ---
Progress Note: A&P Assessment and Plan (1) Acute kidney injury: Code(s): N17.9 - Acute kidney failure, unspecified Status: Acute Assessment and Plan: etiology not clear... evaluation to date demonstrates: - renal ultrasound without obstruction - non-prerenal urine electrolytes x 2 - CPK not elevated - peripheral eosinophilia noted (possibly AIN?) possible prerenal azotemia from diuretic use (on hold) AIN possible -- antibiotics already changed - hesitant to give steroids for fear this may possibly worsen toe infection... ATN from vancomycin (usually more slow indolent process) or from infection(?) creatinine appears to have plateaued/peaked at 3.3mg/dl -- may this is just ATN or AIN with slow recovery watch potassium -- added low K+ to diet follow trend of creatinine/repeat labs and UOP (2) Skin ulcer of left great toe: Qualifiers: Non-pressure ulcer stage: with fat layer exposed Qualified Code(s): L97.522 - Non-pressure chronic ulcer of other part of left foot with fat layer exposed Code(s): L97.529 - Non-pressure chronic ulcer of other part of left foot with unspecified severity Status: Acute Assessment and Plan: this was infected on antibiotics local wound care (3) Generalized edema: Code(s): R60.1 - Generalized edema Status: Acute Assessment and Plan: venous dopplers negative for DVT echocardiogram shows only mildly reduced EF some proteinuria but not severe enough for this degree of swelling component of venous insufficiency? could restart diuretics but he seems to be auto-diuresising -- possible post diuretic phase of ATN? (4) Hypertension: Code(s): I10 - Essential (primary) hypertension Status: Chronic Assessment and Plan: reasonable control at this time but has been rising not opposed to titration of hydralazine as needed follow trend of hemodynamics (5) Congestive heart failure: Code(s): I50.9 - Heart failure, unspecified Status: Acute Assessment and Plan: echo with mildly reduced EF ~ 40% follow volume/respiratory status (6) Anemia: Code(s): D64.9 - Anemia, unspecified Status: Acute Assessment and Plan: likely due to CHERRY and inflammation from infection follow H/H (7) Type 2 diabetes mellitus: Qualifiers: Diabetes mellitus fdc insulin use: without fdc use Diabetes mellitus complication status: with hyperglycemia Qualified Code(s): E11.65 - Type 2 diabetes mellitus with hyperglycemia Code(s): E11.9 - Type 2 diabetes mellitus without complications Status: Chronic Assessment and Plan: follow accuchecks on SSI and Lantus Will continue to follow Subjective Date/time seen: 05/10/21 14:22 Feels reasonably well at the time of my visit; renal function continues to slowly improve with good urine output; discharge planning has been challenging from review of care coordination/social media job titles notes given his current living situation and refusal for placement. Exam Narrative: General: WD/WN male in NAD Heart: normal S1 and S2; no rub Lungs: clear to auscultation Abdomen: soft, nontender, nondistended, positive bowel sounds Extremities: no cyanosis or clubbing; 1 - 2+ edema Skin: warm and intact; dressing in place on toe Objective Data Vital Signs Vital Signs: Vital Signs Temp Pulse Resp BP Pulse Ox 05/10/21 12:00 87 05/10/21 10:23 37.1 C 76 16 155/83 H 100 05/10/21 08:23 87 05/10/21 08:00 94 05/10/21 04:26 36.4 C 78 20 176/90 H 98 05/10/21 04:00 75 05/10/21 00:00 73 05/09/21 21:11 36.1 C L 75 22 H 148/80 H 98 05/09/21 20:00 73 22 H 98 05/09/21 16:00 74 Intake/Output Intake/Output: Intake & Output 05/07/21 05/08/21 05/09/21 05/10/21 23:59 23:59
[2021-05-10 16:52] LABS: Glucose Point of Care 158 mg/dl (65-105)
[2021-05-10] MEDS: ZOLPIDEM TARTRATE (*CRX) 5 MG TABLET PO (20:55)
[2021-05-10] MEDS: traMADol HCL (*CRX) 50 MG TABLET PO (21:07)
[2021-05-10 21:17] LABS: Glucose Point of Care 177 mg/dl (65-105)
[2021-05-11] MEDS: HEPARIN SODIUM 5,000 UNITS/ML VIAL 5000 UNITS SUB-Q ×3 (05:06→21:57)
[2021-05-11 05:42] VITALS: BP 179/92; PULSE 70; RESP 20; TEMP 36.1; O2SAT 99
[2021-05-11 05:42] LABS: Basophils Absolute Auto 0.1 K/mm3 (0.0-0.1); Basophils Percent Auto 1.5 % (0.2-1.2); Eosinophils Absolute Auto 0.7 K/mm3 (0-0.3); Eosinophils Percent Auto 7.6 % (0-4.4); Hematocrit 37.2 % (42.0-52.0); Hemoglobin 12.1 g/dL (14.0-18.0); Immature Granulocyte Absolute 0.06 K/mm3 (0.00-0.031); Immature Granulocyte Percent A 0.7 % (0-0.5); Lymphocytes Absolute Auto 1.55 K/mm3 (0.9-3.2); Lymphocytes Percent Auto 17.4 % (18.3-44.2); Mean Corpuscular HGB Conc 32.5 g/dl (32-36); Mean Corpuscular Hemoglobin 30.1 pg (26-34); Mean Corpuscular Volume 92.5 fl (80-100); Mean Platelet Volume 9.6 fl (7.4-10.4); Monocytes Percent Auto 11.3 % (2.6-8.5); Neutrophils Absolute Auto 5.5 K/mm3 (1.3-6.7); Neutrophils Percent Auto 61.5 % (45.5-73.1); Platelet Count Result 205 k/mm3 (150-375); Red Blood Count 4.02 M/mm3 (4.6-6.20); Red Cell Distribution Width 13.3 % (11.5-14.5); White Blood Count 8.9 K/mm3 (4.5-10.0)
[2021-05-11 05:54] LABS: Alanine Aminotransferase 15 U/L (4-50); Albumin Level 3.7 g/dL (3.5-5.1); Alkaline Phosphatase 84 U/L (38-126); Anion Gap 8 mmol/L (8-16); Aspartate Amino Transferase 22 U/L (17-59); Bilirubin,Total 0.5 mg/dL (0.2-1.3); Blood Urea Nitrogen 58 mg/dL (9-20); Calcium 9.2 mg/dL (8.4-10.2); Carbon Dioxide 31 mmol/L (22-30); Chloride 100 mmol/L (98-107); Estimated CRCL calculation 35 ml/min; Estimated Glomerular Filt Rate 23; Glucose 145 mg/dL (65-110); Magnesium 2.1 mg/dL (1.6-2.3); Potassium 4.6 mmol/L (3.4-5.0); Sodium 139 mmol/L (137-145)
[2021-05-11 07:53] LABS: Glucose Point of Care 123 mg/dl (65-105)
[2021-05-11 08:14] VITALS: PULSE 70
[2021-05-11] MEDS: LORATADINE 10 MG TABLET PO (08:14)
[2021-05-11] MEDS: METOPROLOL SUCCINATE EXT REL 100 MG TABCR PO (08:14)
[2021-05-11] MEDS: hydrALAZINE HCL 25 MG TABLET 50 MG PO ×2 (08:14→12:41)
[2021-05-11] MEDS: ASPIRIN 81 MG CHEWABLE TABLET PO (08:14)
[2021-05-11] MEDS: TAMSULOSIN HCL 0.4 MG CAPSULE PO (08:15)
[2021-05-11] MEDS: SACCHAROMYCES BOULARDII 250 MG CAPSULE PO ×3 (08:15→17:44)
[2021-05-11] MEDS: QUEtiapine FUMARATE 100 MG TABLET 400 MG PO (08:15)
[2021-05-11] MEDS: FLUTICASONE PROPIONATE 0.05% NA SPR 16 GM BTL (*BKC) 1 SPRAY NASAL ×2 (08:16→20:35)
[2021-05-11] MEDS: EUCERIN CREAM 120 GM JAR 1 APPLIC TOPICAL (08:16)
[2021-05-11] MEDS: LATANOPROST 0.005% OP SOLN 2.5 ML BTL 1 DROP EACH EYE (08:16)
[2021-05-11] MEDS: SILVERGEL (ELTA) 45 ML 1 APPLIC TOPICAL ×2 (08:17→20:36)
[2021-05-11] MEDS: INSULIN ASPART (*BKC) 100 UNITS/ML 6 UNITS SUB-Q ×2 (09:09→12:05)
[2021-05-11] MEDS: INSULIN GLARGINE (*BKC) 100 UNITS/ML 13 UNITS SUB-Q (09:10)
--- NOTE | 2021-05-11 09:40 | PCPTNOTE ---
Attempted to see patient for PT at this time, however patient refused. Patient reported he didn't sleep good last night and is too tired to do therapy.
--- NOTE | 2021-05-11 12:37 | PM.PNNEP ---
Progress Note: A&P Assessment and Plan (1) Acute kidney injury: Code(s): N17.9 - Acute kidney failure, unspecified Status: Acute Assessment and Plan: etiology not clear... evaluation to date demonstrates: - renal ultrasound without obstruction - non-prerenal urine electrolytes x 2 - CPK not elevated - peripheral eosinophilia noted (possibly AIN?) possible prerenal azotemia from diuretic use (on hold) AIN possible -- antibiotics already changed - hesitant to give steroids for fear this may possibly worsen toe infection... ATN from vancomycin (usually more slow indolent process) or from infection(?) creatinine appears to have plateaued/peaked at 3.3mg/dl -- may this is just ATN or AIN with slow recovery watch potassium -- added low K+ to diet follow trend of creatinine/repeat labs and UOP (2) Skin ulcer of left great toe: Qualifiers: Non-pressure ulcer stage: with fat layer exposed Qualified Code(s): L97.522 - Non-pressure chronic ulcer of other part of left foot with fat layer exposed Code(s): L97.529 - Non-pressure chronic ulcer of other part of left foot with unspecified severity Status: Acute Assessment and Plan: this was infected on antibiotics local wound care (3) Generalized edema: Code(s): R60.1 - Generalized edema Status: Acute Assessment and Plan: venous dopplers negative for DVT echocardiogram shows only mildly reduced EF some proteinuria but not severe enough for this degree of swelling component of venous insufficiency? could restart diuretics but he seems to be auto-diuresising -- possible post diuretic phase of ATN? (4) Hypertension: Code(s): I10 - Essential (primary) hypertension Status: Chronic Assessment and Plan: reasonable control at this time but has been rising not opposed to titration of hydralazine as needed follow trend of hemodynamics (5) Congestive heart failure: Code(s): I50.9 - Heart failure, unspecified Status: Acute Assessment and Plan: echo with mildly reduced EF ~ 40% follow volume/respiratory status (6) Anemia: Code(s): D64.9 - Anemia, unspecified Status: Acute Assessment and Plan: likely due to CHERRY and inflammation from infection follow H/H no need for ESAs (7) Type 2 diabetes mellitus: Qualifiers: Diabetes mellitus exterminator termite insulin use: without long-term use Diabetes mellitus complication status: with hyperglycemia Qualified Code(s): E11.65 - Type 2 diabetes mellitus with hyperglycemia Code(s): E11.9 - Type 2 diabetes mellitus without complications Status: Chronic Assessment and Plan: follow accuchecks on SSI and Lantus Will continue to follow Subjective Date/time seen: 05/11/21 12:37 Continues to do well without any acute problems or complaints voiced; no issues/events overnight or earlier this AM to report; still apparently refusing placement per care coordination which limits his options for a safe discharge plan; no apparent distress noted. Exam Narrative: General: WD/WN male in NAD Heart: normal S1 and S2; no rub Lungs: clear to auscultation Abdomen: soft, nontender, nondistended, positive bowel sounds Extremities: no cyanosis or clubbing; 1 - 2+ edema Skin: warm and intact; dressing in place on toe Objective Data Vital Signs Vital Signs: Vital Signs Temp Pulse Resp BP Pulse Ox 05/11/21 08:14 70 05/11/21 05:42 36.1 C L 70 20 179/92 H 99 05/10/21 21:09 36.5 C 73 20 165/80 H 93 05/10/21 18:00 76 18 141/74 H 96 Intake/Output Intake/Output: Intake & Output 05/08/21 05/09/21 05/10/21 05/11/21 23:59 23:59 23:59 23:59 Intake Total 1020 1080 1520 640 Output Total 1640 6495 0090 950 [facility] [phone] Meds/Results Medications: Active Med
--- NOTE | 2021-05-11 12:37 | P.PNNP_ITS ---
Progress Note: A&P Assessment and Plan (1) Acute kidney injury: Code(s): N17.9 - Acute kidney failure, unspecified Status: Acute Assessment and Plan: * etiology not clear... * evaluation to date demonstrates: - renal ultrasound without obstruction - non-prerenal urine electrolytes x 2 - CPK not elevated - peripheral eosinophilia noted (possibly AIN?) * possible prerenal azotemia from diuretic use (on hold) * AIN possible -- antibiotics already changed - hesitant to give steroids for fear this may possibly worsen toe infection... * ATN from vancomycin (usually more slow indolent process) or from infection(?) * creatinine appears to have plateaued/peaked at 3.3mg/dl -- may this is just ATN or AIN with slow recovery * watch potassium -- added low K+ to diet * follow trend of creatinine/repeat labs and UOP (2) Skin ulcer of left great toe: Qualifiers: Non-pressure ulcer stage: with fat layer exposed Qualified Code(s): L97.522 - Non-pressure chronic ulcer 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 * could restart diuretics but he seems to be auto-diuresising -- possible post diuretic phase of ATN? (4) Hypertension: Code(s): I10 - Essential (primary) hypertension Status: Chronic Assessment and Plan: * reasonable control at this time but has been rising * not opposed to titration of hydralazine as needed * follow trend of hemodynamics (5) Congestive heart failure: Code(s): I50.9 - Heart failure, unspecified Status: Acute Assessment and Plan: * echo with mildly reduced EF ~ 40% * follow volume/respiratory status (6) Anemia: Code(s): D64.9 - Anemia, unspecified Status: Acute Assessment and Plan: * likely due to CHERRY and inflammation from infection * follow H/H * no need for ESAs (7) Type 2 diabetes mellitus: Qualifiers: Diabetes mellitus 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 treater helper insulin use: without long-term use Diabetes mellitus complication status: with hyperglycemia Qualified Code(s): E11.65 - Type 2 diabetes mellitus with hyperglycemia Code(s): E11.9 - Type 2 diabetes mellitus without complications Status: Chronic Assessment and Plan: * follow accuchecks * on SSI and Lantus Will continue to follow Subjective Date/time seen: 05/11/21 12:37 Continues to do well without any acute problems or complaints voiced; no issues/events overnight or earlier this AM to report; still apparently refusing placement per care coordination which limits his options for a safe discharge plan; no apparent distress noted. Exam Narrative: General: WD/WN male in NAD Heart: normal S1 and S2; no rub Lungs: clear to auscultation Abdomen: soft, nontender, nondistended, positive bowel sounds Extremities: no cyanosis or clubbing; 1 - 2+ edema Skin: warm and intact; dressing in place on toe Objective Data Vital Signs
[2021-05-11 13:22] LABS: Glucose Point of Care 167 mg/dl (65-105)
--- NOTE | 2021-05-11 13:35 | P.PNIM_ITS ---
Progress Note: A&P Assessment and Plan (1) Skin ulcer of left great toe: Qualifiers: Non-pressure ulcer stage: with fat layer exposed Qualified Code(s): L97.522 - Non-pressure chronic ulcer of other part of left foot with fat layer exposed Code(s): L97.529 - Non-pressure chronic ulcer of other part of left foot with unspecified severity Status: Acute Assessment and Plan: * 5 mm diabetic ulcer on plantar surface of left great toe. * Completed a course of IV vancomycin and Primaxin, discontinued on 05/06/21. No signs/symptoms of infection * CT foot reviewed with shallow ulceration and no evidence of osteomyelitis from 04/27/21 * Blood cultures negative from 04/27/21 * Seen in consultation by General surgery and Infectious disease. Recommendations appreciated. No need for debridement and has completed antibiotic therapy as above. * Supportive care. Elevate extremity. Analgesics available as needed. Continue local wound care. Continue with walking boot and walker for off- loading. * Wound clinic for close outpatient follow up. (2) Acute kidney injury: Code(s): N17.9 - Acute kidney failure, unspecified Status: Acute Assessment and Plan: * Acute non oliguric kidney injury likely secondary to vancomycin. PAtient has experienced high trough in the 30s. Baseline kidney fonction is presumed normal with creatinine 0.9 at presentation with slow increase up to 3.3. Creatinine is imporving slowly which is very encouraging. * Avoid further kidney injury and exposure to nephrotoxins. * ATN from vancomycin also considered, DC' on 05/06/21 * Monitor urine electrolytes. 05/05/21 Ur. na 40, Ur Creatinine 38.5, FENa 2.2%, Renal US showed unremarkable kidneys * Appreciate Nephrology consultation, which is considering a kidney biopsy for definitive diagnosis. (3) Hyperkalemia: Code(s): E87.5 - Hyperkalemia Status: Acute Assessment and Plan: * [place] to be related to CHERRY. Resolved. Potassium is 4.6 today. * Trend labs * Received 1 dose of Kayexalate on 05/07 * Continue low-potassium diet * Appreciate nephrology recommendations (4) Congestive heart failure: Code(s): I50.9 - Heart failure, unspecified Status: Acute Assessment and Plan: * Combined systolic and diastolic. * Echocardiogram showed EF 45-50% with grade 2 diastolic dysfunction. * noncompliant with his diuretics at home. * asymptomatic at this time * Diuretics on hold given acute kidney injury. * chronic lower extremity edema * I&O indicate patient is negative 4L * Continue to trend intake and output, daily weights. Heart healthy diet * Continue metoprolol. Lisinopril on hold due to CHERRY. (5) Type 2 diabetes mellitus: Qualifiers: Diabetes mellitus mcfp insulin use: without residential subcontractor use Diabetes mellitus complication status: with hyperglycemia Qualified Code(s): E11.65 - Type 2 diabetes mellitus with hyperglycemia Code(s): E11.9 - Type 2 diabetes mellitus without complications Status: Acute Assessment and Plan: * A1c is 7.9. * Fasting glucose is 145 today. * Continue Accu-Cheks, high dose sliding scale insulin, hypoglycemic protocol * Continue Lantus 13 units while hospitalized. Adjust dose as needed * Trend blood glucose trends * Home glipizide is on hold (6) Hypertension: Code(s): I10 - Essential (primary) hypertension Status: Acute Assessment and Plan: * BP reviewed and previously was well controlled though with steady increase, now in the 179 sy
--- NOTE | 2021-05-11 13:35 | PM.IMPN ---
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 Completed a course of IV vancomycin and Primaxin, discontinued on 05/06/21. No signs/symptoms of infection CT foot reviewed with shallow ulceration and no evidence of osteomyelitis from 04/27/21 Blood cultures negative from 04/27/21 Seen in consultation by General surgery and Infectious disease. Recommendations appreciated. No need for debridement and has completed antibiotic therapy as above. Supportive care. Elevate extremity. Analgesics available as needed. Continue local wound care. Continue with walking boot and walker for off-loading. Wound clinic for close outpatient follow up. (2) Acute kidney injury: Code(s): N17.9 - Acute kidney failure, unspecified Status: Acute Assessment and Plan: Acute non oliguric kidney injury likely secondary to vancomycin. PAtient has experienced high trough in the 30s. Baseline kidney fonction is presumed normal with creatinine 0.9 at presentation with slow increase up to 3.3. Creatinine is imporving slowly which is very encouraging. Avoid further kidney injury and exposure to nephrotoxins. ATN from vancomycin also considered, DC' on 05/06/21 Monitor urine electrolytes. 05/05/21 Ur. na 40, Ur Creatinine 38.5, FENa 2.2%, Renal US showed unremarkable kidneys Appreciate Nephrology consultation, which is considering a kidney biopsy for definitive diagnosis. (3) Hyperkalemia: Code(s): E87.5 - Hyperkalemia Status: Acute Assessment and Plan: [place] to be related to CHERRY. Resolved. Potassium is 4.6 today. Trend labs Received 1 dose of Kayexalate on 05/07 Continue low-potassium diet Appreciate nephrology recommendations (4) Congestive heart failure: Code(s): I50.9 - Heart failure, unspecified Status: Acute Assessment and Plan: Combined systolic and diastolic. Echocardiogram showed EF 45-50% with grade 2 diastolic dysfunction. noncompliant with his diuretics at home. asymptomatic at this time Diuretics on hold given acute kidney injury. chronic lower extremity edema I&O indicate patient is negative 4L Continue to trend intake and output, daily weights. Heart healthy diet Continue metoprolol. Lisinopril on hold due to CHERRY. (5) Type 2 diabetes mellitus: Qualifiers: Diabetes mellitus long term acute care registered nurse insulin use: without snf use Diabetes mellitus complication status: with hyperglycemia Qualified Code(s): E11.65 - Type 2 diabetes mellitus with hyperglycemia Code(s): E11.9 - Type 2 diabetes mellitus without complications Status: Acute Assessment and Plan: A1c is 7.9. Fasting glucose is 145 today. Continue Accu-Cheks, high dose sliding scale insulin, hypoglycemic protocol Continue Lantus 13 units while hospitalized. Adjust dose as needed Trend blood glucose trends Home glipizide is on hold (6) Hypertension: Code(s): I10 - Essential (primary) hypertension Status: Acute Assessment and Plan: BP reviewed and previously was well controlled though with steady increase, now in the 179 systolic. Last BP 179/92 Continue hydralazine and metoprolol. Will increase hydralazine to 75mg TID. start amlodipine 5 mg PO daily. Furosemide and lisinopril on hold due to CHERRY as above. Resume when clinically appropriate Monitor BP trends and adjust medications as needed (7) Slurred speech: Code(s): R47.81 - Slurred speech Status: Acute Assessment and Plan: Resolved. Onset 04/27/2021 with
[2021-05-11 15:25] VITALS: BP 171/85; PULSE 75; RESP 20; TEMP 35.9; O2SAT 98
[2021-05-11] MEDS: amLODIPine BESYLATE 5 MG TABLET PO (15:36)
[2021-05-11] MEDS: hydrALAZINE HCL 25 MG TABLET 75 MG PO (17:43)
[2021-05-11] MEDS: traMADol HCL (*CRX) 50 MG TABLET PO (17:43)
[2021-05-11 18:19] LABS: Glucose Point of Care 172 mg/dl (65-105)
[2021-05-11 21:11] LABS: Glucose Point of Care 152 mg/dl (65-105)
[2021-05-11 21:44] VITALS: BP 161/84; PULSE 72; RESP 18; TEMP 36.9; O2SAT 98
[2021-05-11] MEDS: ZOLPIDEM TARTRATE (*CRX) 5 MG TABLET PO (22:00)
[2021-05-12 00:50] LABS: Eosinophil Urine None Seen % (None Seen)
[2021-05-12 05:43] VITALS: BP 152/84; PULSE 70; RESP 18; TEMP 36.6; O2SAT 94
[2021-05-12] MEDS: HEPARIN SODIUM 5,000 UNITS/ML VIAL 5000 UNITS SUB-Q ×3 (06:11→21:03)
[2021-05-12 08:35] LABS: Glucose Point of Care 138 mg/dl (65-105)
[2021-05-12] MEDS: LATANOPROST 0.005% OP SOLN 2.5 ML BTL 1 DROP EACH EYE (08:49)
[2021-05-12] MEDS: FLUTICASONE PROPIONATE 0.05% NA SPR 16 GM BTL (*BKC) 1 SPRAY NASAL ×2 (08:49→20:47)
[2021-05-12 08:50] VITALS: PULSE 70
[2021-05-12] MEDS: LORATADINE 10 MG TABLET PO (08:50)
[2021-05-12] MEDS: QUEtiapine FUMARATE 100 MG TABLET 400 MG PO (08:50)
[2021-05-12] MEDS: hydrALAZINE HCL 25 MG TABLET 75 MG PO ×3 (08:50→17:04)
[2021-05-12] MEDS: TAMSULOSIN HCL 0.4 MG CAPSULE PO (08:50)
[2021-05-12] MEDS: METOPROLOL SUCCINATE EXT REL 100 MG TABCR PO (08:50)
[2021-05-12] MEDS: amLODIPine BESYLATE 5 MG TABLET PO (08:50)
[2021-05-12] MEDS: ASPIRIN 81 MG CHEWABLE TABLET PO (08:50)
[2021-05-12] MEDS: SACCHAROMYCES BOULARDII 250 MG CAPSULE PO ×3 (08:50→17:04)
[2021-05-12] MEDS: SILVERGEL (ELTA) 45 ML 1 APPLIC TOPICAL ×2 (08:51→20:46)
[2021-05-12] MEDS: EUCERIN CREAM 120 GM JAR 1 APPLIC TOPICAL (08:52)
[2021-05-12] MEDS: INSULIN ASPART (*BKC) 100 UNITS/ML 6 UNITS SUB-Q ×3 (08:58→17:03)
[2021-05-12] MEDS: INSULIN GLARGINE (*BKC) 100 UNITS/ML 13 UNITS SUB-Q (08:58)
--- NOTE | 2021-05-12 10:11 | P.PNIM_ITS ---
Progress Note: A&P Assessment and Plan (1) Skin ulcer of left great toe: Qualifiers: Non-pressure ulcer stage: with fat layer exposed Qualified Code(s): L97.522 - Non-pressure chronic ulcer of other part of left foot with fat layer exposed Code(s): L97.529 - Non-pressure chronic ulcer of other part of left foot with unspecified severity Status: Acute Assessment and Plan: * 5 mm diabetic ulcer on plantar surface of left great toe. * Completed a course of IV vancomycin and Primaxin, discontinued on 05/06/21. No signs/symptoms of infection * CT foot reviewed with shallow ulceration and no evidence of osteomyelitis from 04/27/21 * Blood cultures negative from 04/27/21 * Seen in consultation by General surgery and Infectious disease. Recommendations appreciated. No need for debridement and has completed antibiotic therapy as above. * Supportive care. Elevate extremity. Analgesics available as needed. Continue local wound care. Continue with walking boot and walker for off- loading. * Wound clinic for close outpatient follow up. (2) Acute kidney injury: Code(s): N17.9 - Acute kidney failure, unspecified Status: Acute Assessment and Plan: * Acute non oliguric kidney injury likely secondary to vancomycin. PAtient has experienced high vancomycin trough in the 30s. Baseline kidney function is presumed normal with creatinine 0.9 at presentation with slow increase up to 3.3. Creatinine is improving slowly which is very encouraging. * Avoid further kidney injury and exposure to nephrotoxins. * ATN from vancomycin also considered, DC' on 05/06/21 * Monitor urine electrolytes. 05/05/21 Ur. na 40, Ur Creatinine 38.5, FENa 2.2%, Renal US showed unremarkable kidneys * Appreciate Nephrology consultation, which is considering a kidney biopsy for definitive diagnosis. (3) Hyperkalemia: Code(s): E87.5 - Hyperkalemia Status: Acute Assessment and Plan: * [place] to be related to CHERRY. Resolved. Potassium is 4.4 today. * Trend labs * Received 1 dose of Kayexalate on 05/07 * Continue low-potassium diet * Appreciate nephrology recommendations (4) Congestive heart failure: Code(s): I50.9 - Heart failure, unspecified Status: Acute Assessment and Plan: * Combined systolic and diastolic. * Echocardiogram showed EF 45-50% with grade 2 diastolic dysfunction. * noncompliant with his diuretics at home. * asymptomatic at this time * Diuretics on hold given acute kidney injury. * chronic lower extremity edema * I&O indicate patient is negative 4L * Continue to trend intake and output, daily weights. Heart healthy diet * Continue metoprolol. Lisinopril on hold due to CHERRY. (5) Type 2 diabetes mellitus: Qualifiers: Diabetes mellitus complication status: with hyperglycemia Diabetes mellitus intermediate card tender insulin use: without intermediate card tender use Qualified Code(s): E11.65 - Type 2 diabetes mellitus with hyperglycemia Code(s): E11.9 - Type 2 diabetes mellitus without complications Status: Chronic Assessment and Plan: * A1c is 7.9. * Fasting glucose is 145 today. * Continue Accu-Cheks, high dose sliding scale insulin, hypoglycemic protocol * Continue Lantus 13 units while hospitalized. Adjust dose as needed * Trend blood glucose trends * Home glipizide is on hold (6) Hypertension: Code(s): I10 - Essential (primary) hypertension Status: Chronic Assessment and Plan: * BP reviewed and previously was well controlled though with steady increase, no
--- NOTE | 2021-05-12 10:11 | PM.IMPN ---
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 Completed a course of IV vancomycin and Primaxin, discontinued on 05/06/21. No signs/symptoms of infection CT foot reviewed with shallow ulceration and no evidence of osteomyelitis from 04/27/21 Blood cultures negative from 04/27/21 Seen in consultation by General surgery and Infectious disease. Recommendations appreciated. No need for debridement and has completed antibiotic therapy as above. Supportive care. Elevate extremity. Analgesics available as needed. Continue local wound care. Continue with walking boot and walker for off-loading. Wound clinic for close outpatient follow up. (2) Acute kidney injury: Code(s): N17.9 - Acute kidney failure, unspecified Status: Acute Assessment and Plan: Acute non oliguric kidney injury likely secondary to vancomycin. PAtient has experienced high vancomycin trough in the 30s. Baseline kidney function is presumed normal with creatinine 0.9 at presentation with slow increase up to 3.3. Creatinine is improving slowly which is very encouraging. Avoid further kidney injury and exposure to nephrotoxins. ATN from vancomycin also considered, DC' on 05/06/21 Monitor urine electrolytes. 05/05/21 Ur. na 40, Ur Creatinine 38.5, FENa 2.2%, Renal US showed unremarkable kidneys Appreciate Nephrology consultation, which is considering a kidney biopsy for definitive diagnosis. (3) Hyperkalemia: Code(s): E87.5 - Hyperkalemia Status: Acute Assessment and Plan: [place] to be related to CHERRY. Resolved. Potassium is 4.4 today. Trend labs Received 1 dose of Kayexalate on 05/07 Continue low-potassium diet Appreciate nephrology recommendations (4) Congestive heart failure: Code(s): I50.9 - Heart failure, unspecified Status: Acute Assessment and Plan: Combined systolic and diastolic. Echocardiogram showed EF 45-50% with grade 2 diastolic dysfunction. noncompliant with his diuretics at home. asymptomatic at this time Diuretics on hold given acute kidney injury. chronic lower extremity edema I&O indicate patient is negative 4L Continue to trend intake and output, daily weights. Heart healthy diet Continue metoprolol. Lisinopril on hold due to CHERRY. (5) Type 2 diabetes mellitus: Qualifiers: Diabetes mellitus complication status: with hyperglycemia Diabetes mellitus senior care insulin use: without senior care use Qualified Code(s): E11.65 - Type 2 diabetes mellitus with hyperglycemia Code(s): E11.9 - Type 2 diabetes mellitus without complications Status: Chronic Assessment and Plan: A1c is 7.9. Fasting glucose is 145 today. Continue Accu-Cheks, high dose sliding scale insulin, hypoglycemic protocol Continue Lantus 13 units while hospitalized. Adjust dose as needed Trend blood glucose trends Home glipizide is on hold (6) Hypertension: Code(s): I10 - Essential (primary) hypertension Status: Chronic Assessment and Plan: BP reviewed and previously was well controlled though with steady increase, now in the 179 systolic. Last BP 179/92 Continue hydralazine and metoprolol. Will increase hydralazine to 75mg TID. start amlodipine 5 mg PO daily. Furosemide and lisinopril on hold due to CHERRY as above. Resume when clinically appropriate Monitor BP trends and adjust medications as needed (7) Slurred speech: Code(s): R47.81 - Slurred speech Status: Acute Assessment and Plan: Resolved. Onset
[2021-05-12 10:40] LABS: Hemoglobin 12.1 g/dL (14.0-18.0); Mean Corpuscular HGB Conc 33.6 g/dl (32-36); Mean Corpuscular Hemoglobin 30.6 pg (26-34); Mean Corpuscular Volume 90.9 fl (80-100); Mean Platelet Volume 9.4 fl (7.4-10.4); Platelet Count Result 204 k/mm3 (150-375); Red Blood Count 3.96 M/mm3 (4.6-6.20); Red Cell Distribution Width 13.2 % (11.5-14.5); White Blood Count 8.9 K/mm3 (4.5-10.0)
[2021-05-12 10:49] LABS: Anion Gap 9 mmol/L (8-16); Blood Urea Nitrogen 61 mg/dL (9-20); Calcium 8.9 mg/dL (8.4-10.2); Carbon Dioxide 27 mmol/L (22-30); Chloride 100 mmol/L (98-107); Estimated CRCL calculation 41 ml/min; Estimated Glomerular Filt Rate 27; Glucose 262 mg/dL (65-110); Potassium 4.4 mmol/L (3.4-5.0); Sodium 136 mmol/L (137-145)
--- NOTE | 2021-05-12 12:23 | PM.PNNEP ---
Progress Note: A&P Assessment and Plan (1) Acute kidney injury: Code(s): N17.9 - Acute kidney failure, unspecified Status: Acute Assessment and Plan: etiology not clear... evaluation to date demonstrates: - renal ultrasound without obstruction - non-prerenal urine electrolytes x 2 - CPK not elevated - peripheral eosinophilia noted (possibly AIN?) but urine eosinophils negative possible prerenal azotemia from diuretic use (on hold) AIN possible -- antibiotics already changed - hesitant to give steroids for fear this may possibly worsen toe infection... ATN from vancomycin (usually more slow indolent process) or from infection(?) creatinine appears to have plateaued/peaked at 3.3mg/dl - good urine output noted - maybe this is just ATN with slow recovery... follow trend of creatinine/repeat labs and UOP (2) Skin ulcer of left great toe: Qualifiers: Non-pressure ulcer stage: with fat layer exposed Qualified Code(s): L97.522 - Non-pressure chronic ulcer of other part of left foot with fat layer exposed Code(s): L97.529 - Non-pressure chronic ulcer of other part of left foot with unspecified severity Status: Acute Assessment and Plan: this was infected on antibiotics local wound care (3) Generalized edema: Code(s): R60.1 - Generalized edema Status: Acute Assessment and Plan: venous dopplers negative for DVT echocardiogram shows only mildly reduced EF some proteinuria but not severe enough for this degree of swelling component of venous insufficiency? could restart diuretics but he seems to be auto-diuresising -- possible post diuretic phase of ATN? (4) Hypertension: Code(s): I10 - Essential (primary) hypertension Status: Chronic Assessment and Plan: BP has been rising not opposed to titration of hydralazine as needed; amlodipine added yesterday follow trend of hemodynamics (5) Congestive heart failure: Code(s): I50.9 - Heart failure, unspecified Status: Acute Assessment and Plan: echo with mildly reduced EF ~ 40% follow volume/respiratory status (6) Anemia: Code(s): D64.9 - Anemia, unspecified Status: Acute Assessment and Plan: likely due to CHERRY and inflammation from infection follow H/H - stable if not improving no need for ESAs (7) Type 2 diabetes mellitus: Qualifiers: Diabetes mellitus complication status: with hyperglycemia Diabetes mellitus half-way insulin use: without intermediate manager use Qualified Code(s): E11.65 - Type 2 diabetes mellitus with hyperglycemia Code(s): E11.9 - Type 2 diabetes mellitus without complications Status: Chronic Assessment and Plan: follow accuchecks on SSI and Lantus Will continue to follow Subjective Date/time seen: 05/12/21 12:23 Continues to feel reasonably well and slow and steady improvement; no apparent distress voiced at the time of my visit; care coordination still having issues with discharge planning as patient refusing placement and unable to go back to previous living arrangements. Exam Narrative: General: WD/WN male in NAD Heart: normal S1 and S2; no rub Lungs: clear anteriorly Abdomen: soft, nontender, nondistended, positive bowel sounds Extremities: no cyanosis or clubbing; 1+ edema Skin: warm and intact; dressing in place on toe Objective Data Vital Signs Vital Signs: Vital Signs Temp Pulse Resp BP Pulse Ox 05/12/21 08:50 70 05/12/21 05:43 36.6 C 70 18 152/84 H 94 05/11/21 21:44 36.9 C 72 18 161/84 H 98 05/11/21 15:25 35.9 C L 75 20 171/85 H 98 Intake/Output Intake/Output: Intake & Output 05/09/21 05/10/21 05/11/21 05/12/21 23:59 23:59 23:59 23:59 Intake Total 1080 1520 1340 450 Output Total 2475 3280 2300 2250 Yael
--- NOTE | 2021-05-12 12:23 | P.PNNP_ITS ---
Progress Note: A&P Assessment and Plan (1) Acute kidney injury: Code(s): N17.9 - Acute kidney failure, unspecified Status: Acute Assessment and Plan: * etiology not clear... * evaluation to date demonstrates: - renal ultrasound without obstruction - non-prerenal urine electrolytes x 2 - CPK not elevated - peripheral eosinophilia noted (possibly AIN?) but urine eosinophils negative * possible prerenal azotemia from diuretic use (on hold) * AIN possible -- antibiotics already changed - hesitant to give steroids for fear this may possibly worsen toe infection... * ATN from vancomycin (usually more slow indolent process) or from infection(?) * creatinine appears to have plateaued/peaked at 3.3mg/dl - good urine output noted - maybe this is just ATN with slow recovery... * follow trend of creatinine/repeat labs and UOP (2) Skin ulcer of left great toe: Qualifiers: Non-pressure ulcer stage: with fat layer exposed Qualified Code(s): L97.522 - Non-pressure chronic ulcer 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 * could restart diuretics but he seems to be auto-diuresising -- possible post diuretic phase of ATN? (4) Hypertension: Code(s): I10 - Essential (primary) hypertension Status: Chronic Assessment and Plan: * BP has been rising * not opposed to titration of hydralazine as needed; amlodipine added yesterday * follow trend of hemodynamics (5) Congestive heart failure: Code(s): I50.9 - Heart failure, unspecified Status: Acute Assessment and Plan: * echo with mildly reduced EF ~ 40% * follow volume/respiratory status (6) Anemia: Code(s): D64.9 - Anemia, unspecified Status: Acute Assessment and Plan: * likely due to CHERRY and inflammation from infection * follow H/H - stable if not improving * no need for ESAs (7) Type 2 diabetes mellitus: Qualifiers: Diabetes mellitus complication status: with hyperglycemia Diabetes mellitus lobsterman insulin use: without care home use Qualified Code(s): E11.65 - Type 2 diabetes mellitus with hyperglycemia Code(s): E11.9 - Type 2 diabetes mellitus without complications Status: Chronic Assessment and Plan: * follow accuchecks * on SSI and Lantus Will continue to follow Subjective Date/time seen: 05/12/21 12:23 Continues to feel reasonably well and slow and steady improvement; no apparent distress voiced at the time of my visit; care coordination still having issues with discharge planning as patient refusing placement and unable to go back to previous living arrangements. Exam Narrative: General: WD/WN male in NAD Heart: normal S1 and S2; no rub Lungs: clear anteriorly Abdomen: soft, nontender, nondistended, positive bowel sounds Extremities: no cyanosis or clubbing; 1+ edema Skin: warm and intact; dressing in place o
[2021-05-12 12:39] LABS: Glucose Point of Care 211 mg/dl (65-105)
[2021-05-12] MEDS: INSULIN ASPART (*BKC) 100 UNITS/ML SUB-Q (12:43)
[2021-05-12 15:10] VITALS: BP 134/65; PULSE 79; RESP 18; TEMP 36.6; O2SAT 99
[2021-05-12 18:05] LABS: Glucose Point of Care 163 mg/dl (65-105)
[2021-05-12] MEDS: ZOLPIDEM TARTRATE (*CRX) 5 MG TABLET PO (20:50)
[2021-05-12 22:00] VITALS: BP 144/62; PULSE 76; RESP 18; TEMP 36.9; O2SAT 94
[2021-05-13 00:53] LABS: Glucose Point of Care 174 mg/dl (65-105)
[2021-05-13 06:00] VITALS: BP 151/78; PULSE 74; RESP 18; TEMP 37.1; O2SAT 96
[2021-05-13 06:08] LABS: Hematocrit 39.7 % (42.0-52.0); Hemoglobin 12.8 g/dL (14.0-18.0); Mean Corpuscular HGB Conc 32.2 g/dl (32-36); Mean Corpuscular Hemoglobin 29.7 pg (26-34); Mean Corpuscular Volume 92.1 fl (80-100); Mean Platelet Volume 9.9 fl (7.4-10.4); Platelet Count Result 221 k/mm3 (150-375); Red Blood Count 4.31 M/mm3 (4.6-6.20); Red Cell Distribution Width 13.4 % (11.5-14.5); White Blood Count 10.2 K/mm3 (4.5-10.0)
[2021-05-13 06:24] LABS: Anion Gap 10 mmol/L (8-16); Blood Urea Nitrogen 63 mg/dL (9-20); Calcium 9.5 mg/dL (8.4-10.2); Carbon Dioxide 28 mmol/L (22-30); Chloride 99 mmol/L (98-107); Estimated CRCL calculation 41 ml/min; Estimated Glomerular Filt Rate 27; Glucose 160 mg/dL (65-110); Potassium 4.8 mmol/L (3.4-5.0); Sodium 137 mmol/L (137-145)
[2021-05-13] MEDS: HEPARIN SODIUM 5,000 UNITS/ML VIAL 5000 UNITS SUB-Q ×3 (06:47→20:11)
--- NOTE | 2021-05-13 06:54 | P.PNNP_ITS ---
Progress Note: A&P Assessment and Plan (1) Acute kidney injury: Code(s): N17.9 - Acute kidney failure, unspecified Status: Acute Assessment and Plan: * acute kidney injury * etiology not clear. * evaluation to date demonstrates: - renal ultrasound without obstruction - non-prerenal urine electrolytes x 2 - CPK not elevated - peripheral eosinophilia noted (possibly AIN?) but urine eosinophils negative * possible prerenal azotemia from diuretic use (on hold) * AIN possible -- antibiotics already changed - antibiotics have been changed. Eosinophilia continues. * ATN from vancomycin (usually more slow indolent process) or from infection(?) * creatinine on his way down. Today is 2.41 peak was 3.3 - good urine output noted - maybe this is just ATN with slow recovery. * check a creatinine tomorrow (2) Skin ulcer of left great toe: Qualifiers: Non-pressure ulcer stage: with fat layer exposed Qualified Code(s): L97.522 - Non-pressure chronic ulcer 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 * could restart diuretics but he seems to be auto-diuresising -- possible post diuretic phase of ATN? * urine output 2400 Yesterday. (4) Hypertension: Code(s): I10 - Essential (primary) hypertension Status: Chronic Assessment and Plan: * BP has been rising * not opposed to titration of hydralazine as needed; amlodipine added yesterday * follow trend of hemodynamics (5) Congestive heart failure: Code(s): I50.9 - Heart failure, unspecified Status: Acute Assessment and Plan: * echo with mildly reduced EF ~ 40% * follow volume/respiratory status (6) Anemia: Code(s): D64.9 - Anemia, unspecified Status: Acute Assessment and Plan: * likely due to CHERRY and inflammation from infection * Hemoglobin up to 12.8 * no need for ESAs (7) Type 2 diabetes mellitus: Qualifiers: Diabetes mellitus [facility] insulin use: without terminal make up operator use Diabetes mellitus complication status: with hyperglycemia Qualified Code(s): E11.65 - Type 2 diabetes mellitus with hyperglycemia Code(s): E11.9 - Type 2 diabetes mellitus without complications Status: Chronic Assessment and Plan: * follow accuchecks * on SSI and Lantus Subjective Date/time seen: 05/13/21 06:54 Interval history: Randy is feeling better today. Eating okay. Bowels are okay. Exam Narrative: General: WD/WN male in NAD Heart: normal S1 and S2; no rub or gallop Lungs: clear bilaterally Abdomen: soft, nontender, nondistended, positive bowel sounds Extremities: no cyanosis or clubbing; 1+ edema Skin: warm and intact; dressing in place on toe Objective Data Vital Signs Vital Signs: Vital Signs - 24 hr 05/12/21 08:50 05/12/21 15:10 05/12/21
--- NOTE | 2021-05-13 06:54 | PM.PNNEP ---
Progress Note: A&P Assessment and Plan (1) Acute kidney injury: Code(s): N17.9 - Acute kidney failure, unspecified Status: Acute Assessment and Plan: acute kidney injury etiology not clear. evaluation to date demonstrates: - renal ultrasound without obstruction - non-prerenal urine electrolytes x 2 - CPK not elevated - peripheral eosinophilia noted (possibly AIN?) but urine eosinophils negative possible prerenal azotemia from diuretic use (on hold) AIN possible -- antibiotics already changed - antibiotics have been changed. Eosinophilia continues. ATN from vancomycin (usually more slow indolent process) or from infection(?) creatinine on his way down. Today is 2.41 peak was 3.3 - good urine output noted - maybe this is just ATN with slow recovery. check a creatinine tomorrow (2) Skin ulcer of left great toe: Qualifiers: Non-pressure ulcer stage: with fat layer exposed Qualified Code(s): L97.522 - Non-pressure chronic ulcer of other part of left foot with fat layer exposed Code(s): L97.529 - Non-pressure chronic ulcer of other part of left foot with unspecified severity Status: Acute Assessment and Plan: this was infected on antibiotics local wound care (3) Generalized edema: Code(s): R60.1 - Generalized edema Status: Acute Assessment and Plan: venous dopplers negative for DVT echocardiogram shows only mildly reduced EF some proteinuria but not severe enough for this degree of swelling component of venous insufficiency? could restart diuretics but he seems to be auto-diuresising -- possible post diuretic phase of ATN? urine output 2400 Yesterday. (4) Hypertension: Code(s): I10 - Essential (primary) hypertension Status: Chronic Assessment and Plan: BP has been rising not opposed to titration of hydralazine as needed; amlodipine added yesterday follow trend of hemodynamics (5) Congestive heart failure: Code(s): I50.9 - Heart failure, unspecified Status: Acute Assessment and Plan: echo with mildly reduced EF ~ 40% follow volume/respiratory status (6) Anemia: Code(s): D64.9 - Anemia, unspecified Status: Acute Assessment and Plan: likely due to CHERRY and inflammation from infection Hemoglobin up to 12.8 no need for ESAs (7) Type 2 diabetes mellitus: Qualifiers: 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 Eating okay. Bowels are okay. Exam Narrative: General: WD/WN male in NAD Heart: normal S1 and S2; no rub or gallop Lungs: clear bilaterally Abdomen: soft, nontender, nondistended, positive bowel sounds Extremities: no cyanosis or clubbing; 1+ edema Skin: warm and intact; dressing in place on toe Objective Data Vital Signs Vital Signs: Vital Signs - 24 hr 05/12/21 08:50 05/12/21 15:10 05/12/21 22:00 Temperature 36.6 C 36.9 C Pulse Rate 70 79 76 Respiratory Rate 18 18 Blood Pressure 134/65 144/62 H Pulse Oximetry 99 94 05/13/21 06:00 Temperature 37.1 C Pulse Rate 74 Respiratory Rate 18 Blood Pressure 151/78 H Pulse Oximetry 96 Intake/Output Intake/Output: Intake & Output 05/10/21 05/11/21 05/12/21 05/13/21 23:59 23:59 23:59 23:59 Intake Total 1520 1340 690 740 Output Total 3280 2300 2900 1250 Balance -1760 -960 -2210 -510 Meds/Results Medications: Active Medications Generic N
[2021-05-13 07:00] LABS: Glucose Point of Care 137 mg/dl (65-105)
[2021-05-13] MEDS: INSULIN GLARGINE (*BKC) 100 UNITS/ML 13 UNITS SUB-Q (08:09)
[2021-05-13] MEDS: INSULIN ASPART (*BKC) 100 UNITS/ML 6 UNITS SUB-Q ×3 (08:09→16:37)
[2021-05-13] MEDS: FLUTICASONE PROPIONATE 0.05% NA SPR 16 GM BTL (*BKC) 1 SPRAY NASAL ×2 (08:13→20:11)
[2021-05-13] MEDS: LATANOPROST 0.005% OP SOLN 2.5 ML BTL 1 DROP EACH EYE (08:13)
[2021-05-13] MEDS: TAMSULOSIN HCL 0.4 MG CAPSULE PO (08:14)
[2021-05-13] MEDS: ASPIRIN 81 MG CHEWABLE TABLET PO (08:14)
[2021-05-13] MEDS: hydrALAZINE HCL 25 MG TABLET 75 MG PO ×3 (08:14→16:35)
[2021-05-13] MEDS: LORATADINE 10 MG TABLET PO (08:14)
[2021-05-13] MEDS: amLODIPine BESYLATE 5 MG TABLET PO (08:14)
[2021-05-13] MEDS: EUCERIN CREAM 120 GM JAR 1 APPLIC TOPICAL (08:14)
[2021-05-13 08:15] VITALS: PULSE 82
[2021-05-13] MEDS: SILVERGEL (ELTA) 45 ML 1 APPLIC TOPICAL (08:15)
[2021-05-13] MEDS: QUEtiapine FUMARATE 100 MG TABLET 400 MG PO (08:15)
[2021-05-13] MEDS: METOPROLOL SUCCINATE EXT REL 100 MG TABCR PO (08:15)
[2021-05-13] MEDS: SACCHAROMYCES BOULARDII 250 MG CAPSULE PO ×3 (08:15→16:35)
[2021-05-13 12:17] LABS: Glucose Point of Care 168 mg/dl (65-105)
[2021-05-13 14:25] VITALS: BP 120/56; PULSE 93; RESP 18; TEMP 36.7; O2SAT 97
--- NOTE | 2021-05-13 15:31 | P.PNIM_ITS ---
Progress Note: A&P Assessment and Plan (1) Skin ulcer of left great toe: Qualifiers: Non-pressure ulcer stage: with fat layer exposed Qualified Code(s): L97.522 - Non-pressure chronic ulcer of other part of left foot with fat layer exposed Code(s): L97.529 - Non-pressure chronic ulcer of other part of left foot with unspecified severity Status: Acute Assessment and Plan: * 5 mm diabetic ulcer on plantar surface of left great toe. * Completed a course of IV vancomycin and Primaxin, discontinued on 05/06/21. No signs/symptoms of infection. currently he is off antibiotics. * CT foot reviewed with shallow ulceration and no evidence of osteomyelitis from 04/27/21 * Blood cultures negative from 04/27/21 * Seen in consultation by General surgery and Infectious disease. Recommendations appreciated. No need for debridement and has completed antibiotic therapy as above. * Supportive care. Elevate extremity. Analgesics available as needed. Continue local wound care. Continue with walking boot and walker for off- loading. * Wound clinic for close outpatient follow up. (2) Acute kidney injury: Code(s): N17.9 - Acute kidney failure, unspecified Status: Acute Assessment and Plan: * Acute non oliguric kidney injury likely secondary to vancomycin. PAtient has experienced high vancomycin trough in the 30s. Baseline kidney function is presumed normal with creatinine 0.9 at presentation with slow increase up to 3.3. Creatinine is improving slowly which is very encouraging. Creatinine has plateaued at 2.4 yesterday and today. * Avoid further kidney injury and exposure to nephrotoxins. * ATN from vancomycin seems likely, DC' on 05/06/21 * Monitor urine electrolytes. 05/05/21 Ur. na 40, Ur Creatinine 38.5, FENa 2.2%, Renal US showed unremarkable kidneys * Appreciate Nephrology recommendations to monitor clinically as the creatinine trend seems toward improvement. (3) Hyperkalemia: Code(s): E87.5 - Hyperkalemia Status: Acute Assessment and Plan: * [place] to be related to CHERRY. Resolved. Potassium is 4.8 today. * Trend labs * Received 1 dose of Kayexalate on 05/07 * Continue low-potassium diet * Appreciate nephrology recommendations (4) Congestive heart failure: Code(s): I50.9 - Heart failure, unspecified Status: Acute Assessment and Plan: * Combined systolic and diastolic. * Echocardiogram showed EF 45-50% with grade 2 diastolic dysfunction. * noncompliant with his diuretics at home. * asymptomatic at this time * Diuretics on hold given acute kidney injury. * chronic lower extremity edema * I&O indicate patient is negative 4L * Continue to trend intake and output, daily weights. Heart healthy diet * Continue metoprolol. Lisinopril on hold due to CHERRY. Bp within acceptable range. (5) Type 2 diabetes mellitus: Qualifiers: Diabetes mellitus intermission coordinator insulin use: without fpc use Diabetes mellitus complication status: with hyperglycemia Qualified Code(s): E11.65 - Type 2 diabetes mellitus with hyperglycemia Code(s): E11.9 - Type 2 diabetes mellitus without complications Status: Chronic Assessment and Plan: * A1c is 7.9. * Fasting glucose is 160 today. * Continue Accu-Cheks, high dose sliding scale insulin, hypoglycemic protocol * Continue Lantus 13 units while hospitalized. Adjust dose as needed * Trend blood glucose trends * Home glipizide is on hold (6) Hypertension: Code(s): I10 - Essential (primary) hypertension Status:
--- NOTE | 2021-05-13 15:31 | PM.IMPN ---
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 Completed a course of IV vancomycin and Primaxin, discontinued on 05/06/21. No signs/symptoms of infection. currently he is off antibiotics. CT foot reviewed with shallow ulceration and no evidence of osteomyelitis from 04/27/21 Blood cultures negative from 04/27/21 Seen in consultation by General surgery and Infectious disease. Recommendations appreciated. No need for debridement and has completed antibiotic therapy as above. Supportive care. Elevate extremity. Analgesics available as needed. Continue local wound care. Continue with walking boot and walker for off-loading. Wound clinic for close outpatient follow up. (2) Acute kidney injury: Code(s): N17.9 - Acute kidney failure, unspecified Status: Acute Assessment and Plan: Acute non oliguric kidney injury likely secondary to vancomycin. PAtient has experienced high vancomycin trough in the 30s. Baseline kidney function is presumed normal with creatinine 0.9 at presentation with slow increase up to 3.3. Creatinine is improving slowly which is very encouraging. Creatinine has plateaued at 2.4 yesterday and today. Avoid further kidney injury and exposure to nephrotoxins. ATN from vancomycin seems likely, DC' on 05/06/21 Monitor urine electrolytes. 05/05/21 Ur. na 40, Ur Creatinine 38.5, FENa 2.2%, Renal US showed unremarkable kidneys Appreciate Nephrology recommendations to monitor clinically as the creatinine trend seems toward improvement. (3) Hyperkalemia: Code(s): E87.5 - Hyperkalemia Status: Acute Assessment and Plan: [place] to be related to CHERRY. Resolved. Potassium is 4.8 today. Trend labs Received 1 dose of Kayexalate on 05/07 Continue low-potassium diet Appreciate nephrology recommendations (4) Congestive heart failure: Code(s): I50.9 - Heart failure, unspecified Status: Acute Assessment and Plan: Combined systolic and diastolic. Echocardiogram showed EF 45-50% with grade 2 diastolic dysfunction. noncompliant with his diuretics at home. asymptomatic at this time Diuretics on hold given acute kidney injury. chronic lower extremity edema I&O indicate patient is negative 4L Continue to trend intake and output, daily weights. Heart healthy diet Continue metoprolol. Lisinopril on hold due to CHERRY. Bp within acceptable range. (5) Type 2 diabetes mellitus: Qualifiers: Diabetes mellitus half-way insulin use: without intermediate card tender use Diabetes mellitus complication status: with hyperglycemia Qualified Code(s): E11.65 - Type 2 diabetes mellitus with hyperglycemia Code(s): E11.9 - Type 2 diabetes mellitus without complications Status: Chronic Assessment and Plan: A1c is 7.9. Fasting glucose is 160 today. Continue Accu-Cheks, high dose sliding scale insulin, hypoglycemic protocol Continue Lantus 13 units while hospitalized. Adjust dose as needed Trend blood glucose trends Home glipizide is on hold (6) Hypertension: Code(s): I10 - Essential (primary) hypertension Status: Chronic Assessment and Plan: BP reviewed and previously was well controlled . Due to persistent elevation, amlodipine was started Dip in BP today at 120/56. Continue hydralazine and metoprolol. Conitnue hydralazine to 75mg TID. Hold recently started amlodipine. Furosemide and lisinopril on hold due to CHERRY as above. Resume when clinically appropriate Monitor BP trends and adjust medications as needed
[2021-05-13 16:43] LABS: Glucose Point of Care 137 mg/dl (65-105)
[2021-05-13 20:00] VITALS: PULSE 93; RESP 18; O2SAT 97
[2021-05-13 20:36] LABS: Glucose Point of Care 172 mg/dl (65-105)
[2021-05-13 21:35] VITALS: BP 109/51; PULSE 80; RESP 16; TEMP 36.2; O2SAT 93
[2021-05-14] VITALS (7 sets, daily range): BP systolic 120–167; BP diastolic 60–76; PULSE 79–85; RESP 16–20; TEMP 36.4; O2SAT 94–100
[2021-05-14 05:57] LABS: Anion Gap 9 mmol/L (8-16); Blood Urea Nitrogen 61 mg/dL (9-20); Carbon Dioxide 28 mmol/L (22-30); Chloride 102 mmol/L (98-107); Estimated CRCL calculation 42 ml/min; Estimated Glomerular Filt Rate 29; Glucose 192 mg/dL (65-110); Potassium 4.4 mmol/L (3.4-5.0); Sodium 139 mmol/L (137-145)
[2021-05-14 06:04] LABS: Basophils Absolute Auto 0.1 K/mm3 (0.0-0.1); Basophils Percent Auto 1.3 % (0.2-1.2); Eosinophils Absolute Auto 0.9 K/mm3 (0-0.3); Eosinophils Percent Auto 8.6 % (0-4.4); Hematocrit 36.1 % (42.0-52.0); Hemoglobin 11.8 g/dL (14.0-18.0); Immature Granulocyte Absolute 0.11 K/mm3 (0.00-0.031); Immature Granulocyte Percent A 1.1 % (0-0.5); Lymphocytes Absolute Auto 1.78 K/mm3 (0.9-3.2); Mean Corpuscular HGB Conc 32.7 g/dl (32-36); Mean Corpuscular Hemoglobin 29.6 pg (26-34); Mean Corpuscular Volume 90.5 fl (80-100); Mean Platelet Volume 10.2 fl (7.4-10.4); Monocytes Percent Auto 9.9 % (2.6-8.5); Neutrophils Absolute Auto 6.1 K/mm3 (1.3-6.7); Neutrophils Percent Auto 61.1 % (45.5-73.1); Platelet Count Result 227 k/mm3 (150-375); Red Blood Count 3.99 M/mm3 (4.6-6.20); Red Cell Distribution Width 13.2 % (11.5-14.5); White Blood Count 9.9 K/mm3 (4.5-10.0)
[2021-05-14 06:06] LABS: Albumin Level 3.6 g/dL (3.5-5.1); Anion Gap 10 mmol/L (8-16); Blood Urea Nitrogen 60 mg/dL (9-20); Calcium 9.1 mg/dL (8.4-10.2); Carbon Dioxide 28 mmol/L (22-30); Chloride 101 mmol/L (98-107); Estimated CRCL calculation 42 ml/min; Estimated Glomerular Filt Rate 29; Glucose 191 mg/dL (65-110); Phosphorus 4.8 mg/dL (2.5-4.5); Potassium 4.4 mmol/L (3.4-5.0); Sodium 139 mmol/L (137-145)
[2021-05-14] MEDS: HEPARIN SODIUM 5,000 UNITS/ML VIAL 5000 UNITS SUB-Q ×3 (06:53→22:27)
--- NOTE | 2021-05-14 06:58 | P.PNNP_ITS ---
Progress Note: A&P Assessment and Plan (1) Acute kidney injury: Code(s): N17.9 - Acute kidney failure, unspecified Status: Acute Assessment and Plan: * acute kidney injury * etiology not clear. * evaluation to date demonstrates: - renal ultrasound without obstruction - non-prerenal urine electrolytes x 2 - CPK not elevated - peripheral eosinophilia noted (possibly AIN?) but urine eosinophils negative * possible prerenal azotemia from diuretic use (on hold) * AIN possible -- antibiotics already changed - antibiotics have been changed. Eosinophilia continues. * ATN from vancomycin (usually more slow indolent process) * Infection can cause ATN as well. * Urine output is good at 2400 * creatinine is a bit better at 2.3. (2) Skin ulcer of left great toe: Qualifiers: Non-pressure ulcer stage: with fat layer exposed Qualified Code(s): L97.522 - Non-pressure chronic ulcer 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 * Intake and output is negative by 1L (4) Hypertension: Code(s): I10 - Essential (primary) hypertension Status: Chronic Assessment and Plan: * BP is good this morning at 1:40 a.m.. * amlodipine added recently * follow trend of hemodynamics (5) Congestive heart failure: Code(s): I50.9 - Heart failure, unspecified Status: Acute Assessment and Plan: * echo with mildly reduced EF ~ 40% * follow volume/respiratory status (6) Anemia: Code(s): D64.9 - Anemia, unspecified Status: Acute Assessment and Plan: * likely due to CHERRY and inflammation from infection * Hemoglobin in a good range * no need for ESAs (7) Type 2 diabetes mellitus: Qualifiers: Diabetes mellitus terminal superintendent insulin use: without terminal superintendent use Diabetes mellitus complication status: with hyperglycemia Qualified Code(s): E11.65 - Type 2 diabetes mellitus with hyperglycemia Code(s): E11.9 - Type 2 diabetes mellitus without complications Status: Chronic Assessment and Plan: * follow accuchecks * on SSI and Lantus Subjective Date/time seen: 05/14/21 06:58 Interval history: Randy is feeling okay. He slept from 6:00 p.m. to midnight and then has been up since then. Eating okay. Bowels are okay. Exam Narrative: General: WD/WN male in NAD Heart: normal S1 and S2; no rub or gallop Lungs: clear to auscultation Abdomen: soft, nontender, nondistended, positive bowel sounds Extremities: 1+ edema bilaterally Skin: warm and intact; dressing in place on toe Objective Data Vital Signs Vital Signs: Vital Signs - 24 hr 05/13/21 08:15 05/13/21 14:25 05/13/21 20:00 Temperature 36.7 C Pulse Rate 82 93 93 Respiratory Rate 18 18 Blood Pressure 120/56 L Pulse Oximetry 97 9
--- NOTE | 2021-05-14 06:58 | PM.PNNEP ---
Progress Note: A&P Assessment and Plan (1) Acute kidney injury: Code(s): N17.9 - Acute kidney failure, unspecified Status: Acute Assessment and Plan: acute kidney injury etiology not clear. evaluation to date demonstrates: - renal ultrasound without obstruction - non-prerenal urine electrolytes x 2 - CPK not elevated - peripheral eosinophilia noted (possibly AIN?) but urine eosinophils negative possible prerenal azotemia from diuretic use (on hold) AIN possible -- antibiotics already changed - antibiotics have been changed. Eosinophilia continues. ATN from vancomycin (usually more slow indolent process) Infection can cause ATN as well. Urine output is good at 2400 creatinine is a bit better at 2.3. (2) Skin ulcer of left great toe: Qualifiers: Non-pressure ulcer stage: with fat layer exposed Qualified Code(s): L97.522 - Non-pressure chronic ulcer of other part of left foot with fat layer exposed Code(s): L97.529 - Non-pressure chronic ulcer of other part of left foot with unspecified severity Status: Acute Assessment and Plan: this was infected on antibiotics local wound care (3) Generalized edema: Code(s): R60.1 - Generalized edema Status: Acute Assessment and Plan: venous dopplers negative for DVT echocardiogram shows only mildly reduced EF some proteinuria but not severe enough for this degree of swelling component of venous insufficiency? Intake and output is negative by 1L (4) Hypertension: Code(s): I10 - Essential (primary) hypertension Status: Chronic Assessment and Plan: BP is good this morning at 1:40 a.m.. 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 He slept from 6:00 p.m. to midnight and then has been up since then. Eating okay. Bowels are okay. Exam Narrative: General: WD/WN male in NAD Heart: normal S1 and S2; no rub or gallop Lungs: clear to auscultation Abdomen: soft, nontender, nondistended, positive bowel sounds Extremities: 1+ edema bilaterally Skin: warm and intact; dressing in place on toe Objective Data Vital Signs Vital Signs: Vital Signs - 24 hr 05/13/21 08:15 05/13/21 14:25 05/13/21 20:00 Temperature 36.7 C Pulse Rate 82 93 93 Respiratory Rate 18 18 Blood Pressure 120/56 L Pulse Oximetry 97 97 05/13/21 21:35 05/14/21 05:06 Temperature 36.2 C L 36.4 C L Pulse Rate 80 85 Respiratory Rate 16 16 Blood Pressure 109/51 L 140/69 Pulse Oximetry 93 95 Intake/Output Intake/Output: Intake & Output 05/11/21 05/12/21 05/13/21 05/14/21 23:59 23:59 23:59 23:59 Intake Total 4617 109 4284 300 Output Total 2300 2900 2575 850 Balance -960 -2210 -1105 -550 Meds/Results Medications: Active Medications Generic Name Dose Route Start Last Admin Trade Name Freq PRN Reason Stop Dose Admin Amlodipine Besylate 5 mg 05/11/21 13:50 05/13/21 08:14 Aml
[2021-05-14 08:00] LABS: Glucose Point of Care 144 mg/dl (65-105)
[2021-05-14] MEDS: INSULIN GLARGINE (*BKC) 100 UNITS/ML 13 UNITS SUB-Q (08:27)
[2021-05-14] MEDS: INSULIN ASPART (*BKC) 100 UNITS/ML 6 UNITS SUB-Q ×3 (08:29→16:38)
[2021-05-14] MEDS: FLUTICASONE PROPIONATE 0.05% NA SPR 16 GM BTL (*BKC) 1 SPRAY NASAL ×2 (08:32→22:28)
[2021-05-14] MEDS: LATANOPROST 0.005% OP SOLN 2.5 ML BTL 1 DROP EACH EYE (08:32)
[2021-05-14] MEDS: SACCHAROMYCES BOULARDII 250 MG CAPSULE PO ×3 (08:33→16:38)
[2021-05-14] MEDS: QUEtiapine FUMARATE 100 MG TABLET 400 MG PO (08:33)
[2021-05-14] MEDS: ASPIRIN 81 MG CHEWABLE TABLET PO (08:33)
[2021-05-14] MEDS: LORATADINE 10 MG TABLET PO (08:33)
[2021-05-14] MEDS: TAMSULOSIN HCL 0.4 MG CAPSULE PO (08:33)
[2021-05-14] MEDS: amLODIPine BESYLATE 5 MG TABLET PO (08:33)
[2021-05-14] MEDS: METOPROLOL SUCCINATE EXT REL 100 MG TABCR PO (08:33)
[2021-05-14] MEDS: hydrALAZINE HCL 25 MG TABLET 75 MG PO ×3 (08:34→16:38)
[2021-05-14] MEDS: SILVERGEL (ELTA) 45 ML 1 APPLIC TOPICAL (08:36)
[2021-05-14] MEDS: EUCERIN CREAM 120 GM JAR 1 APPLIC TOPICAL (08:36)
[2021-05-14 11:44] LABS: Glucose Point of Care 202 mg/dl (65-105)
[2021-05-14] MEDS: INSULIN ASPART (*BKC) 100 UNITS/ML SUB-Q (11:53)
[2021-05-14 16:36] LABS: Glucose Point of Care 153 mg/dl (65-105)
--- NOTE | 2021-05-14 18:06 | P.PNIM_ITS ---
Progress Note: A&P Assessment and Plan (1) Skin ulcer of left great toe: Qualifiers: Non-pressure ulcer stage: with fat layer exposed Qualified Code(s): L97.522 - Non-pressure chronic ulcer of other part of left foot with fat layer exposed Code(s): L97.529 - Non-pressure chronic ulcer of other part of left foot with unspecified severity Status: Acute Assessment and Plan: * 5 mm diabetic ulcer on plantar surface of left great toe. * Completed a course of IV vancomycin and Primaxin, discontinued on 05/06/21. No signs/symptoms of infection. currently he is off antibiotics. * CT foot reviewed with shallow ulceration and no evidence of osteomyelitis from 04/27/21 * Blood cultures negative from 04/27/21 * Seen in consultation by General surgery and Infectious disease. There was no need for debridement and has completed antibiotic therapy as above. * Supportive care. Elevate extremity. Analgesics available as needed. Continue local wound care. Continue with walking boot and walker for off- loading. * Wound clinic for close outpatient follow up. (2) Acute kidney injury: Code(s): N17.9 - Acute kidney failure, unspecified Status: Acute Assessment and Plan: * Acute non oliguric kidney injury likely secondary to vancomycin. Patient has experienced high vancomycin trough in the 30s. Baseline kidney function is presumed normal with creatinine 0.9 at presentation with slow increase up to 3.3. Creatinine is improving slowly down to 2.3 today which is very encouraging. Renal scan reveals symmetrical function. * Avoid further kidney injury and exposure to nephrotoxins. * ATN from vancomycin seems likely, DC' on 05/06/21 * Monitor urine electrolytes. 05/05/21 Ur. na 40, Ur Creatinine 38.5, FENa 2.2%, Renal US showed unremarkable kidneys * Appreciate Nephrology recommendations to monitor clinically as the creatinine trend seems toward improvement. (3) Hyperkalemia: Code(s): E87.5 - Hyperkalemia Status: Acute Assessment and Plan: * [place] to be related to CHERRY. Resolved. (4) Congestive heart failure: Code(s): I50.9 - Heart failure, unspecified Status: Acute Assessment and Plan: * Combined systolic and diastolic. * Echocardiogram showed EF 45-50% with grade 2 diastolic dysfunction. * noncompliant with his diuretics at home. * asymptomatic at this time * Diuretics on hold given acute kidney injury. * chronic lower extremity edema. Elevation of the legs. * I&O indicate patient is negative 4L * Continue to trend intake and output, daily weights. Heart healthy diet * Continue metoprolol. Lisinopril on hold due to CHERRY. Bp within acceptable range. (5) Type 2 diabetes mellitus: Qualifiers: Diabetes mellitus director long term care insulin use: without director long term care use Diabetes mellitus complication status: with hyperglycemia Qualified Code(s): E11.65 - Type 2 diabetes mellitus with hyperglycemia Code(s): E11.9 - Type 2 diabetes mellitus without complications Status: Chronic Assessment and Plan: * A1c is 7.9. * Fasting glucose is 191 today. * Continue Accu-Cheks, high dose sliding scale insulin, hypoglycemic protocol * Continue Lantus 13 units while hospitalized. Adjust dose as needed * Trend blood glucose trends * Home glipizide is on hold (6) Hypertension: Code(s): I10 - Essential (primary) hypertension Status: Chronic Assessment and Plan: * BP reviewed and previously was well controlled . * Due to persistent elevation, amlodipine was started
--- NOTE | 2021-05-14 18:06 | PM.IMPN ---
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 Completed a course of IV vancomycin and Primaxin, discontinued on 05/06/21. No signs/symptoms of infection. currently he is off antibiotics. CT foot reviewed with shallow ulceration and no evidence of osteomyelitis from 04/27/21 Blood cultures negative from 04/27/21 Seen in consultation by General surgery and Infectious disease. There was no need for debridement and has completed antibiotic therapy as above. Supportive care. Elevate extremity. Analgesics available as needed. Continue local wound care. Continue with walking boot and walker for off-loading. Wound clinic for close outpatient follow up. (2) Acute kidney injury: Code(s): N17.9 - Acute kidney failure, unspecified Status: Acute Assessment and Plan: Acute non oliguric kidney injury likely secondary to vancomycin. Patient has experienced high vancomycin trough in the 30s. Baseline kidney function is presumed normal with creatinine 0.9 at presentation with slow increase up to 3.3. Creatinine is improving slowly down to 2.3 today which is very encouraging. Renal scan reveals symmetrical function. Avoid further kidney injury and exposure to nephrotoxins. ATN from vancomycin seems likely, DC' on 05/06/21 Monitor urine electrolytes. 05/05/21 Ur. na 40, Ur Creatinine 38.5, FENa 2.2%, Renal US showed unremarkable kidneys Appreciate Nephrology recommendations to monitor clinically as the creatinine trend seems toward improvement. (3) Hyperkalemia: Code(s): E87.5 - Hyperkalemia Status: Acute Assessment and Plan: [place] to be related to CHERRY. Resolved. (4) Congestive heart failure: Code(s): I50.9 - Heart failure, unspecified Status: Acute Assessment and Plan: Combined systolic and diastolic. Echocardiogram showed EF 45-50% with grade 2 diastolic dysfunction. noncompliant with his diuretics at home. asymptomatic at this time Diuretics on hold given acute kidney injury. chronic lower extremity edema. Elevation of the legs. I&O indicate patient is negative 4L Continue to trend intake and output, daily weights. Heart healthy diet Continue metoprolol. Lisinopril on hold due to CHERRY. Bp within acceptable range. (5) Type 2 diabetes mellitus: Qualifiers: Diabetes mellitus ferry terminal agent insulin use: without prison use Diabetes mellitus complication status: with hyperglycemia Qualified Code(s): E11.65 - Type 2 diabetes mellitus with hyperglycemia Code(s): E11.9 - Type 2 diabetes mellitus without complications Status: Chronic Assessment and Plan: A1c is 7.9. Fasting glucose is 191 today. Continue Accu-Cheks, high dose sliding scale insulin, hypoglycemic protocol Continue Lantus 13 units while hospitalized. Adjust dose as needed Trend blood glucose trends Home glipizide is on hold (6) Hypertension: Code(s): I10 - Essential (primary) hypertension Status: Chronic Assessment and Plan: BP reviewed and previously was well controlled . Due to persistent elevation, amlodipine was started Dip in BP today at 167/74 Continue hydralazine and metoprolol. Continue hydralazine to 75mg TID. We recently amlodipine 5 mg PO daily. Monitor BP. NO intervention today. Furosemide and lisinopril on hold due to CHERRY as above. Resume when clinically appropriate Monitor BP trends and adjust medications as needed (7) Slurred speech: Code(s): R47.81 - Slurred speech Status: Acute Assess
[2021-05-14] MEDS: ZOLPIDEM TARTRATE (*CRX) 5 MG TABLET PO (22:27)
[2021-05-14 22:35] LABS: Glucose Point of Care 154 mg/dl (65-105)
[2021-05-15 03:54] VITALS: BP 132/68; PULSE 74; RESP 16; TEMP 37; O2SAT 96
[2021-05-15 05:54] LABS: Basophils Absolute Auto 0.1 K/mm3 (0.0-0.1); Basophils Percent Auto 1.3 % (0.2-1.2); Eosinophils Absolute Auto 0.9 K/mm3 (0-0.3); Eosinophils Percent Auto 8.4 % (0-4.4); Hematocrit 35.4 % (42.0-52.0); Hemoglobin 11.8 g/dL (14.0-18.0); Immature Granulocyte Absolute 0.12 K/mm3 (0.00-0.031); Immature Granulocyte Percent A 1.2 % (0-0.5); Lymphocytes Absolute Auto 1.62 K/mm3 (0.9-3.2); Lymphocytes Percent Auto 15.9 % (18.3-44.2); Mean Corpuscular HGB Conc 33.3 g/dl (32-36); Mean Corpuscular Hemoglobin 30.2 pg (26-34); Mean Corpuscular Volume 90.5 fl (80-100); Mean Platelet Volume 9.8 fl (7.4-10.4); Monocytes Absolute Auto 1.1 K/mm3 (0.1-0.6); Monocytes Percent Auto 10.4 % (2.6-8.5); Neutrophils Absolute Auto 6.4 K/mm3 (1.3-6.7); Neutrophils Percent Auto 62.8 % (45.5-73.1); Platelet Count Result 225 k/mm3 (150-375); Red Blood Count 3.91 M/mm3 (4.6-6.20); Red Cell Distribution Width 13.4 % (11.5-14.5); White Blood Count 10.2 K/mm3 (4.5-10.0)
[2021-05-15 06:17] LABS: Albumin Level 3.9 g/dL (3.5-5.1); Anion Gap 9 mmol/L (8-16); Blood Urea Nitrogen 57 mg/dL (9-20); Calcium 9.4 mg/dL (8.4-10.2); Carbon Dioxide 27 mmol/L (22-30); Chloride 101 mmol/L (98-107); Estimated CRCL calculation 43 ml/min; Estimated Glomerular Filt Rate 30; Glucose 156 mg/dL (65-110); Phosphorus 4.9 mg/dL (2.5-4.5); Potassium 4.8 mmol/L (3.4-5.0); Sodium 137 mmol/L (137-145)
[2021-05-15] MEDS: HEPARIN SODIUM 5,000 UNITS/ML VIAL 5000 UNITS SUB-Q ×3 (06:22→22:53)
--- NOTE | 2021-05-15 07:24 | P.PNNP_ITS ---
Progress Note: A&P Assessment and Plan (1) Acute kidney injury: Code(s): N17.9 - Acute kidney failure, unspecified Status: Acute Assessment and Plan: * acute kidney injury * etiology not clear. * evaluation to date demonstrates: - renal ultrasound without obstruction - non-prerenal urine electrolytes x 2 - CPK not elevated - peripheral eosinophilia noted (possibly AIN?) but urine eosinophils negative * possible prerenal azotemia from diuretic use (on hold) * AIN possible -- antibiotics already changed - antibiotics have been discontinued. He is on hydralazine. Will try stopping this. * ATN from vancomycin (usually more slow indolent process) * Infection can cause ATN as well * Renal scan shows uptake without excretion, more in line with ATN than AIN. * Urine output is good at 2400 * creatinine is a bit better at 2.2 (2) Skin ulcer of left great toe: Qualifiers: Non-pressure ulcer stage: with fat layer exposed Qualified Code(s): L97.522 - Non-pressure chronic ulcer of other part of left foot with fat layer exposed Code(s): L97.529 - Non-pressure chronic ulcer of other part of left foot with unspecified severity Status: Acute Assessment and Plan: * this was infected * Finished antibiotics * local wound care (3) Generalized edema: Code(s): R60.1 - Generalized edema Status: Acute Assessment and Plan: * venous dopplers negative for DVT * echocardiogram shows only mildly reduced EF * some proteinuria but not severe enough for this degree of swelling * component of venous insufficiency? * Intake and output is negative by 1L (4) Hypertension: Code(s): I10 - Essential (primary) hypertension Status: Chronic Assessment and Plan: * BP is under good control * amlodipine added recently * stop Hydralazine * follow trend of hemodynamics (5) Congestive heart failure: Code(s): I50.9 - Heart failure, unspecified Status: Acute Assessment and Plan: * echo with mildly reduced EF ~ 40% * follow volume/respiratory status (6) Anemia: Code(s): D64.9 - Anemia, unspecified Status: Acute Assessment and Plan: * likely due to CHERRY and inflammation from infection * Hemoglobin in a good range * no need for ESAs (7) Type 2 diabetes mellitus: Qualifiers: Diabetes mellitus terminologist insulin use: without senior care use Diabetes mellitus complication status: with hyperglycemia Qualified Code(s): E11.65 - Type 2 diabetes mellitus with hyperglycemia Code(s): E11.9 - Type 2 diabetes mellitus without complications Status: Chronic Assessment and Plan: * follow accuchecks * on SSI and Lantus Subjective Date/time seen: 05/15/21 07:24 Interval history: Randy is feeling okay. Stayed up in a chair for a long time yesterday. Eating okay. Bowels are okay. no rash or itching Exam Narrative: General: WD/WN male in NAD Heart: normal S1 and S2; no rub or gallop Lungs: clear Abdomen: soft, nontender, nondistended, positive bowel sounds Extremities: 1+ edema bilaterally Skin: no rash Objective Data Vital Signs Vital Signs: Vital Signs - 24 hr 05/14/21 08:00 05/14/21 08:33 05/14/21 12:25 Temperature Pulse Rate 80 Respir
--- NOTE | 2021-05-15 07:24 | PM.PNNEP ---
Progress Note: A&P Assessment and Plan (1) Acute kidney injury: Code(s): N17.9 - Acute kidney failure, unspecified Status: Acute Assessment and Plan: acute kidney injury etiology not clear. evaluation to date demonstrates: - renal ultrasound without obstruction - non-prerenal urine electrolytes x 2 - CPK not elevated - peripheral eosinophilia noted (possibly AIN?) but urine eosinophils negative possible prerenal azotemia from diuretic use (on hold) AIN possible -- antibiotics already changed - antibiotics have been discontinued. He is on hydralazine. Will try stopping this. ATN from vancomycin (usually more slow indolent process) Infection can cause ATN as well Renal scan shows uptake without excretion, more in line with ATN than AIN. Urine output is good at 2400 creatinine is a bit better at 2.2 (2) Skin ulcer of left great toe: Qualifiers: Non-pressure ulcer stage: with fat layer exposed Qualified Code(s): L97.522 - Non-pressure chronic ulcer of other part of left foot with fat layer exposed Code(s): L97.529 - Non-pressure chronic ulcer of other part of left foot with unspecified severity Status: Acute Assessment and Plan: this was infected Finished antibiotics local wound care (3) Generalized edema: Code(s): R60.1 - Generalized edema Status: Acute Assessment and Plan: venous dopplers negative for DVT echocardiogram shows only mildly reduced EF some proteinuria but not severe enough for this degree of swelling component of venous insufficiency? Intake and output is negative by 1L (4) Hypertension: Code(s): I10 - Essential (primary) hypertension Status: Chronic Assessment and Plan: BP is under good control amlodipine added recently stop Hydralazine follow trend of hemodynamics (5) Congestive heart failure: Code(s): I50.9 - Heart failure, unspecified Status: Acute Assessment and Plan: echo with mildly reduced EF ~ 40% follow volume/respiratory status (6) Anemia: Code(s): D64.9 - Anemia, unspecified Status: Acute Assessment and Plan: likely due to CHERRY and inflammation from infection Hemoglobin in a good range no need for ESAs (7) Type 2 diabetes mellitus: Qualifiers: Diabetes mellitus beauty consultant insulin use: without beauty consultant use Diabetes mellitus complication status: with hyperglycemia Qualified Code(s): E11.65 - Type 2 diabetes mellitus with hyperglycemia Code(s): E11.9 - Type 2 diabetes mellitus without complications Status: Chronic Assessment and Plan: follow accuchecks on SSI and Lantus Subjective Date/time seen: 05/15/21 07:24 Interval history: Randy is feeling okay. Stayed up in a chair for a long time yesterday. Eating okay. Bowels are okay. no rash or itching Exam Narrative: General: WD/WN male in NAD Heart: normal S1 and S2; no rub or gallop Lungs: clear Abdomen: soft, nontender, nondistended, positive bowel sounds Extremities: 1+ edema bilaterally Skin: no rash Objective Data Vital Signs Vital Signs: Vital Signs - 24 hr 05/14/21 08:00 05/14/21 08:33 05/14/21 12:25 Temperature Pulse Rate 80 Respiratory Rate Blood Pressure 147/76 H Pulse Oximetry 100 05/14/21 14:00 05/14/21 20:00 05/14/21 20:32 Temperature 36.4 C 36.4 C Pulse Rate 82 79 79 Respiratory Rate 16 20 20 Blood Pressure 167/74 H 120/60 Pulse Oximetry 97 94 94 05/15/21 03:54 Temperature 37.0 C Pulse Rate 74 Respiratory Rate 16 Blood Pressure 132/68 Pulse Oximetry 96 Intake/Output Intake/Output: Intake & Output 05/12/21 05/13/21 05/14/21 05/15/21 23:59 23:59 23:59 23:59 Intake Total 690 1470 300 600 Output Total 2900 2575 2550 1600 Balance -2210 -1105 -2250 -1000
[2021-05-15 07:42] LABS: Glucose Point of Care 135 mg/dl (65-105)
[2021-05-15] MEDS: INSULIN ASPART (*BKC) 100 UNITS/ML 6 UNITS SUB-Q ×3 (08:39→16:56)
[2021-05-15] MEDS: INSULIN GLARGINE (*BKC) 100 UNITS/ML 13 UNITS SUB-Q (08:39)
[2021-05-15] MEDS: TAMSULOSIN HCL 0.4 MG CAPSULE PO (08:43)
[2021-05-15] MEDS: LORATADINE 10 MG TABLET PO (08:43)
[2021-05-15] MEDS: SACCHAROMYCES BOULARDII 250 MG CAPSULE PO ×3 (08:43→16:56)
[2021-05-15] MEDS: amLODIPine BESYLATE 5 MG TABLET PO (08:43)
[2021-05-15] MEDS: ASPIRIN 81 MG CHEWABLE TABLET PO (08:43)
[2021-05-15 08:44] VITALS: PULSE 74
[2021-05-15] MEDS: QUEtiapine FUMARATE 100 MG TABLET 400 MG PO (08:44)
[2021-05-15] MEDS: FLUTICASONE PROPIONATE 0.05% NA SPR 16 GM BTL (*BKC) 1 SPRAY NASAL ×2 (08:44→22:53)
[2021-05-15] MEDS: METOPROLOL SUCCINATE EXT REL 100 MG TABCR PO (08:44)
[2021-05-15] MEDS: LATANOPROST 0.005% OP SOLN 2.5 ML BTL 1 DROP EACH EYE (08:45)
[2021-05-15] MEDS: EUCERIN CREAM 120 GM JAR 1 APPLIC TOPICAL (08:45)
[2021-05-15] MEDS: SILVERGEL (ELTA) 45 ML 1 APPLIC TOPICAL ×2 (08:46→22:54)
[2021-05-15 11:45] LABS: Glucose Point of Care 191 mg/dl (65-105)
[2021-05-15 16:35] LABS: Glucose Point of Care 174 mg/dl (65-105)
--- NOTE | 2021-05-15 17:01 | P.PNIM_ITS ---
Progress Note: A&P Assessment and Plan (1) Skin ulcer of left great toe: Qualifiers: Non-pressure ulcer stage: with fat layer exposed Qualified Code(s): L97.522 - Non-pressure chronic ulcer of other part of left foot with fat layer exposed Code(s): L97.529 - Non-pressure chronic ulcer of other part of left foot with unspecified severity Status: Acute Assessment and Plan: * 5 mm diabetic ulcer on plantar surface of left great toe. * Completed a course of IV vancomycin and Primaxin, discontinued on 05/06/21. No signs/symptoms of infection. currently he is off antibiotics. * CT foot reviewed with shallow ulceration and no evidence of osteomyelitis from 04/27/21 * Blood cultures negative from 04/27/21 * Seen in consultation by General surgery and Infectious disease. There was no need for debridement and has completed antibiotic therapy as above. * Supportive care. Elevate extremity. Analgesics available as needed. Continue local wound care. Continue with walking boot and walker for off- loading. * Wound clinic for close outpatient follow up. (2) Acute kidney injury: Code(s): N17.9 - Acute kidney failure, unspecified Status: Acute Assessment and Plan: * Acute non oliguric kidney injury likely secondary to vancomycin. Patient has experienced high vancomycin trough in the 30s. Baseline kidney function is presumed normal with creatinine 0.9 at presentation with slow increase up to 3.3. * Creatinine is improving slowly down to 2.2 today which is very encouraging. Renal scan reveals symmetrical function. * Avoid further kidney injury and exposure to nephrotoxins. * ATN from vancomycin seems likely, DC' on 05/06/21 * Monitor urine electrolytes. 05/05/21 Ur. na 40, Ur Creatinine 38.5, FENa 2.2%, Renal US showed unremarkable kidneys * Appreciate Nephrology recommendations to monitor clinically as the creatinine trend seems toward improvement. (3) Hyperkalemia: Code(s): E87.5 - Hyperkalemia Status: Acute Assessment and Plan: * [place] to be related to CHERRY. Resolved. (4) Congestive heart failure: Code(s): I50.9 - Heart failure, unspecified Status: Acute Assessment and Plan: * Combined systolic and diastolic. * Echocardiogram showed EF 45-50% with grade 2 diastolic dysfunction. * noncompliant with his diuretics at home. * asymptomatic at this time * Diuretics on hold given acute kidney injury. * chronic lower extremity edema. Elevation of the legs. * I&O indicate patient is negative 4L * Continue to trend intake and output, daily weights. Heart healthy diet * Continue metoprolol. Lisinopril on hold due to CHERRY. Bp within acceptable range. (5) Type 2 diabetes mellitus: Qualifiers: Diabetes mellitus penitentiary insulin use: without penitentiary use Diabetes mellitus complication status: with hyperglycemia Qualified Code(s): E11.65 - Type 2 diabetes mellitus with hyperglycemia Code(s): E11.9 - Type 2 diabetes mellitus without complications Status: Chronic Assessment and Plan: * A1c is 7.9. * Fasting glucose is 191 today. * Continue Accu-Cheks, high dose sliding scale insulin, hypoglycemic protocol * Continue Lantus 13 units while hospitalized. Adjust dose as needed * Trend blood glucose trends * Home glipizide is on hold (6) Hypertension: Code(s): I10 - Essential (primary) hypertension Status: Chronic Assessment and Plan: * BP reviewed and previously was well controlled . * Due to persistent elevation, amlodipine was start
--- NOTE | 2021-05-15 17:01 | PM.IMPN ---
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 Completed a course of IV vancomycin and Primaxin, discontinued on 05/06/21. No signs/symptoms of infection. currently he is off antibiotics. CT foot reviewed with shallow ulceration and no evidence of osteomyelitis from 04/27/21 Blood cultures negative from 04/27/21 Seen in consultation by General surgery and Infectious disease. There was no need for debridement and has completed antibiotic therapy as above. Supportive care. Elevate extremity. Analgesics available as needed. Continue local wound care. Continue with walking boot and walker for off-loading. Wound clinic for close outpatient follow up. (2) Acute kidney injury: Code(s): N17.9 - Acute kidney failure, unspecified Status: Acute Assessment and Plan: Acute non oliguric kidney injury likely secondary to vancomycin. Patient has experienced high vancomycin trough in the 30s. Baseline kidney function is presumed normal with creatinine 0.9 at presentation with slow increase up to 3.3. Creatinine is improving slowly down to 2.2 today which is very encouraging. Renal scan reveals symmetrical function. Avoid further kidney injury and exposure to nephrotoxins. ATN from vancomycin seems likely, DC' on 05/06/21 Monitor urine electrolytes. 05/05/21 Ur. na 40, Ur Creatinine 38.5, FENa 2.2%, Renal US showed unremarkable kidneys Appreciate Nephrology recommendations to monitor clinically as the creatinine trend seems toward improvement. (3) Hyperkalemia: Code(s): E87.5 - Hyperkalemia Status: Acute Assessment and Plan: [place] to be related to CHERRY. Resolved. (4) Congestive heart failure: Code(s): I50.9 - Heart failure, unspecified Status: Acute Assessment and Plan: Combined systolic and diastolic. Echocardiogram showed EF 45-50% with grade 2 diastolic dysfunction. noncompliant with his diuretics at home. asymptomatic at this time Diuretics on hold given acute kidney injury. chronic lower extremity edema. Elevation of the legs. I&O indicate patient is negative 4L Continue to trend intake and output, daily weights. Heart healthy diet Continue metoprolol. Lisinopril on hold due to CHERRY. Bp within acceptable range. (5) Type 2 diabetes mellitus: Qualifiers: Diabetes mellitus terminal manager insulin use: without senior care use Diabetes mellitus complication status: with hyperglycemia Qualified Code(s): E11.65 - Type 2 diabetes mellitus with hyperglycemia Code(s): E11.9 - Type 2 diabetes mellitus without complications Status: Chronic Assessment and Plan: A1c is 7.9. Fasting glucose is 191 today. Continue Accu-Cheks, high dose sliding scale insulin, hypoglycemic protocol Continue Lantus 13 units while hospitalized. Adjust dose as needed Trend blood glucose trends Home glipizide is on hold (6) Hypertension: Code(s): I10 - Essential (primary) hypertension Status: Chronic Assessment and Plan: BP reviewed and previously was well controlled . Due to persistent elevation, amlodipine was started Dip in BP today at 132/68 Hydralazine was stopped; continue metoprolol XL 100 mg PO daily. Increase amlodipine to 10 mg PO daily. Monitor BP. Furosemide and lisinopril on hold due to CHERRY as above. Resume when clinically appropriate Monitor BP trends and adjust medications as needed (7) Slurred speech: Code(s): R47.81 - Slurred speech Status: Acute Assessment and Plan: Resolved
[2021-05-15 19:11] VITALS: BP 129/63; PULSE 78; RESP 16; TEMP 36.3; O2SAT 96
[2021-05-15] MEDS: ZOLPIDEM TARTRATE (*CRX) 5 MG TABLET PO (22:53)
[2021-05-15 23:22] LABS: Glucose Point of Care 172 mg/dl (65-105)
[2021-05-16 03:10] VITALS: BP 142/72; PULSE 73; RESP 17; TEMP 36.6; O2SAT 98
[2021-05-16 04:46] LABS: Hematocrit 35.5 % (42.0-52.0); Hemoglobin 11.7 g/dL (14.0-18.0); Mean Corpuscular Hemoglobin 29.8 pg (26-34); Mean Corpuscular Volume 90.6 fl (80-100); Mean Platelet Volume 9.5 fl (7.4-10.4); Platelet Count Result 219 k/mm3 (150-375); Red Blood Count 3.92 M/mm3 (4.6-6.20); Red Cell Distribution Width 13.2 % (11.5-14.5)
[2021-05-16 05:03] LABS: Anion Gap 9 mmol/L (8-16); Blood Urea Nitrogen 63 mg/dL (9-20); Calcium 9.3 mg/dL (8.4-10.2); Carbon Dioxide 27 mmol/L (22-30); Chloride 101 mmol/L (98-107); Estimated CRCL calculation 43 ml/min; Estimated Glomerular Filt Rate 30; Glucose 157 mg/dL (65-110); Phosphorus 4.9 mg/dL (2.5-4.5); Potassium 4.8 mmol/L (3.4-5.0); Sodium 137 mmol/L (137-145)
[2021-05-16] MEDS: HEPARIN SODIUM 5,000 UNITS/ML VIAL 5000 UNITS SUB-Q ×3 (06:49→21:03)
[2021-05-16 07:27] LABS: Glucose Point of Care 140 mg/dl (65-105)
--- NOTE | 2021-05-16 07:37 | P.PNNP_ITS ---
Progress Note: A&P Assessment and Plan (1) Acute kidney injury: Code(s): N17.9 - Acute kidney failure, unspecified Status: Acute Assessment and Plan: * acute kidney injury * etiology not clear. * evaluation to date demonstrates: - renal ultrasound without obstruction - non-prerenal urine electrolytes x 2 - CPK not elevated - peripheral eosinophilia noted (possibly AIN?) but urine eosinophils negative * possible prerenal azotemia from diuretic use (on hold) * AIN possible -- antibiotics already changed antibiotics have been discontinued. The only suspicious meds that would cause eosinophilia that were started before 04/30 are the cephalosporin and hydralazine, however he was on this as an outpatient. These have both been discontinued. * ATN from vancomycin (usually more slow indolent process) * Infection can cause ATN as well * Renal scan shows uptake without excretion, more in line with ATN than AIN. * Urine output is good at 2400 * creatinine is the same at 2.2 * Discussed with Dr. Zapata (2) Skin ulcer of left great toe: Qualifiers: Non-pressure ulcer stage: with fat layer exposed Qualified Code(s): L97.522 - Non-pressure chronic ulcer of other part of left foot with fat layer exposed Code(s): L97.529 - Non-pressure chronic ulcer of other part of left foot with unspecified severity Status: Acute Assessment and Plan: * this was infected * Finished antibiotics * local wound care (3) Generalized edema: Code(s): R60.1 - Generalized edema Status: Acute Assessment and Plan: * venous dopplers negative for DVT * echocardiogram shows only mildly reduced EF * some proteinuria but not severe enough for this degree of swelling * component of venous insufficiency? * Intake and output is negative by 1L (4) Hypertension: Code(s): I10 - Essential (primary) hypertension Status: Chronic Assessment and Plan: * BP is under good control * amlodipine added recently * Off Hydralazine * Systolic 142 today (5) Congestive heart failure: Code(s): I50.9 - Heart failure, unspecified Status: Acute Assessment and Plan: * echo with mildly reduced EF ~ 40% * follow volume/respiratory status (6) Anemia: Code(s): D64.9 - Anemia, unspecified Status: Acute Assessment and Plan: * likely due to CHERRY and inflammation from infection * Hemoglobin in a good range * no need for ESAs (7) Type 2 diabetes mellitus: Qualifiers: 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 Stayed up in a chair for a long time yesterday. Eating okay. Bowels are okay. no rash or itching Exam Narrative: General: WD/WN male in NAD Heart: normal S1 and S2; no rub or gallop Lungs: clear bilaterally Abdomen: soft, nontender, nondistended, positive bowel sounds Extremities: 1+ edema bilaterally Skin: no rash or subQ nodules Objective Data Vital Signs
--- NOTE | 2021-05-16 07:37 | PM.PNNEP ---
Progress Note: A&P Assessment and Plan (1) Acute kidney injury: Code(s): N17.9 - Acute kidney failure, unspecified Status: Acute Assessment and Plan: acute kidney injury etiology not clear. evaluation to date demonstrates: - renal ultrasound without obstruction - non-prerenal urine electrolytes x 2 - CPK not elevated - peripheral eosinophilia noted (possibly AIN?) but urine eosinophils negative possible prerenal azotemia from diuretic use (on hold) AIN possible -- antibiotics already changed antibiotics have been discontinued. The only suspicious meds that would cause eosinophilia that were started before 04/30 are the cephalosporin and hydralazine, however he was on this as an outpatient. These have both been discontinued. ATN from vancomycin (usually more slow indolent process) Infection can cause ATN as well Renal scan shows uptake without excretion, more in line with ATN than AIN. Urine output is good at 2400 creatinine is the same at 2.[address] Zapata (2) Skin ulcer of left great toe: Qualifiers: Non-pressure ulcer stage: with fat layer exposed Qualified Code(s): L97.522 - Non-pressure chronic ulcer of other part of left foot with fat layer exposed Code(s): L97.529 - Non-pressure chronic ulcer of other part of left foot with unspecified severity Status: Acute Assessment and Plan: this was infected Finished antibiotics local wound care (3) Generalized edema: Code(s): R60.1 - Generalized edema Status: Acute Assessment and Plan: venous dopplers negative for DVT echocardiogram shows only mildly reduced EF some proteinuria but not severe enough for this degree of swelling component of venous insufficiency? Intake and output is negative by 1L (4) Hypertension: Code(s): I10 - Essential (primary) hypertension Status: Chronic Assessment and Plan: BP is under good control amlodipine added recently Off Hydralazine Systolic 142 today (5) Congestive heart failure: Code(s): I50.9 - Heart failure, unspecified Status: Acute Assessment and Plan: echo with mildly reduced EF ~ 40% follow volume/respiratory status (6) Anemia: Code(s): D64.9 - Anemia, unspecified Status: Acute Assessment and Plan: likely due to CHERRY and inflammation from infection Hemoglobin in a good range no need for ESAs (7) Type 2 diabetes mellitus: 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 Stayed up in a chair for a long time yesterday. Eating okay. Bowels are okay. no rash or itching Exam Narrative: General: WD/WN male in NAD Heart: normal S1 and S2; no rub or gallop Lungs: clear bilaterally Abdomen: soft, nontender, nondistended, positive bowel sounds Extremities: 1+ edema bilaterally Skin: no rash or subQ nodules Objective Data Vital Signs Vital Signs: Vital Signs - 24 hr 05/15/21 08:44 05/15/21 19:11 05/16/21 03:10 Temperature 36.3 C L 36.6 C Pulse Rate 74 78 73 Respiratory Rate 16 17 Blood Pressure 129/63 142/72 H Pulse Oximetry 96 98 Intake/Output Intake/Output: Intake & Output 05/13/21 05/14/21 05/15/21 05/16/21 23:59 23:59 23:59 23:59 Intake Total 0657 553 1125 480 Output Total 2575 2550 2400 1800 Balance -1105 -2250 660 -1320 Meds/Results Medications: Active Medications Generic Name Dose Route Start Last Admin
[2021-05-16 08:15] VITALS: PULSE 73
[2021-05-16] MEDS: QUEtiapine FUMARATE 100 MG TABLET 400 MG PO (08:15)
[2021-05-16] MEDS: SACCHAROMYCES BOULARDII 250 MG CAPSULE PO ×3 (08:15→17:02)
[2021-05-16] MEDS: METOPROLOL SUCCINATE EXT REL 100 MG TABCR PO (08:15)
[2021-05-16] MEDS: LATANOPROST 0.005% OP SOLN 2.5 ML BTL 1 DROP EACH EYE (08:16)
[2021-05-16] MEDS: EUCERIN CREAM 120 GM JAR 1 APPLIC TOPICAL (08:16)
[2021-05-16] MEDS: TAMSULOSIN HCL 0.4 MG CAPSULE PO (08:16)
[2021-05-16] MEDS: ASPIRIN 81 MG CHEWABLE TABLET PO (08:16)
[2021-05-16] MEDS: FLUTICASONE PROPIONATE 0.05% NA SPR 16 GM BTL (*BKC) 1 SPRAY NASAL ×2 (08:16→21:02)
[2021-05-16] MEDS: amLODIPine BESYLATE 5 MG TABLET 10 MG PO (08:16)
[2021-05-16] MEDS: SILVERGEL (ELTA) 45 ML 1 APPLIC TOPICAL ×2 (08:17→21:08)
[2021-05-16] MEDS: LORATADINE 10 MG TABLET PO (08:18)
[2021-05-16] MEDS: INSULIN ASPART (*BKC) 100 UNITS/ML 6 UNITS SUB-Q ×3 (08:21→17:02)
[2021-05-16] MEDS: INSULIN GLARGINE (*BKC) 100 UNITS/ML 13 UNITS SUB-Q (08:22)
[2021-05-16 11:50] LABS: Glucose Point of Care 181 mg/dl (65-105)
[2021-05-16 12:00] VITALS: BP 133/72; PULSE 76; RESP 16; TEMP 36.7; O2SAT 99
--- NOTE | 2021-05-16 16:35 | P.PNIM_ITS ---
Progress Note: A&P Assessment and Plan (1) Skin ulcer of left great toe: Qualifiers: Non-pressure ulcer stage: with fat layer exposed Qualified Code(s): L97.522 - Non-pressure chronic ulcer of other part of left foot with fat layer exposed Code(s): L97.529 - Non-pressure chronic ulcer of other part of left foot with unspecified severity Status: Acute Assessment and Plan: * 5 mm diabetic ulcer on plantar surface of left great toe. * Completed a course of IV vancomycin and Primaxin, discontinued on 05/06/21. No signs/symptoms of infection. currently he is off antibiotics. * CT foot reviewed with shallow ulceration and no evidence of osteomyelitis from 04/27/21 * Blood cultures negative from 04/27/21 * Seen in consultation by General surgery and Infectious disease. There was no need for debridement and has completed antibiotic therapy as above. * Supportive care. Elevate extremity. Analgesics available as needed. Continue local wound care. Continue with walking boot and walker for off- loading. * Wound clinic for close outpatient follow up. (2) Acute kidney injury: Code(s): N17.9 - Acute kidney failure, unspecified Status: Acute Assessment and Plan: * Acute non oliguric kidney injury likely secondary to vancomycin. Patient has experienced high vancomycin trough in the 30s. Baseline kidney function is presumed normal with creatinine 0.9 at presentation with slow increase up to 3.3. * Creatinine has plateaued to 2.2 today which is very encouraging. Renal scan reveals symmetrical function. * Avoid further kidney injury and exposure to nephrotoxins. * ATN from vancomycin seems likely, DC' on 05/06/21 * Monitor urine electrolytes. 05/05/21 Ur. na 40, Ur Creatinine 38.5, FENa 2.2%, Renal US showed unremarkable kidneys * Appreciate Nephrology recommendations to monitor clinically as the creatinine trend seems toward improvement. (3) Hyperkalemia: Code(s): E87.5 - Hyperkalemia Status: Acute Assessment and Plan: * [place] to be related to CHERRY. Resolved. (4) Congestive heart failure: Code(s): I50.9 - Heart failure, unspecified Status: Acute Assessment and Plan: * Combined systolic and diastolic. * Echocardiogram showed EF 45-50% with grade 2 diastolic dysfunction. * noncompliant with his diuretics at home. * asymptomatic at this time * Diuretics on hold given acute kidney injury. * chronic lower extremity edema. Elevation of the legs. * I&O indicate patient is negative 4L * Continue to trend intake and output, daily weights. Heart healthy diet * Continue metoprolol. Lisinopril on hold due to CHERRY. Bp within acceptable range. 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 * Fasting glucose is 181 today. * Continue Accu-Cheks, high dose sliding scale insulin, hypoglycemic protocol * Continue Lantus 13 units while hospitalized. Adjust dose as needed * Trend blood glucose trends * Home glipizide is on hold (6) Hypertension: Code(s): I10 - Essential (primary) hypertension Status: Chronic Assessment and Plan: * BP reviewed and previously was well controlled . * Due to persistent elevation, amlodipine was started * D
--- NOTE | 2021-05-16 16:35 | PM.IMPN ---
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 Completed a course of IV vancomycin and Primaxin, discontinued on 05/06/21. No signs/symptoms of infection. currently he is off antibiotics. CT foot reviewed with shallow ulceration and no evidence of osteomyelitis from 04/27/21 Blood cultures negative from 04/27/21 Seen in consultation by General surgery and Infectious disease. There was no need for debridement and has completed antibiotic therapy as above. Supportive care. Elevate extremity. Analgesics available as needed. Continue local wound care. Continue with walking boot and walker for off-loading. Wound clinic for close outpatient follow up. (2) Acute kidney injury: Code(s): N17.9 - Acute kidney failure, unspecified Status: Acute Assessment and Plan: Acute non oliguric kidney injury likely secondary to vancomycin. Patient has experienced high vancomycin trough in the 30s. Baseline kidney function is presumed normal with creatinine 0.9 at presentation with slow increase up to 3.3. Creatinine has plateaued to 2.2 today which is very encouraging. Renal scan reveals symmetrical function. Avoid further kidney injury and exposure to nephrotoxins. ATN from vancomycin seems likely, DC' on 05/06/21 Monitor urine electrolytes. 05/05/21 Ur. na 40, Ur Creatinine 38.5, FENa 2.2%, Renal US showed unremarkable kidneys Appreciate Nephrology recommendations to monitor clinically as the creatinine trend seems toward improvement. (3) Hyperkalemia: Code(s): E87.5 - Hyperkalemia Status: Acute Assessment and Plan: [place] to be related to CHERRY. Resolved. (4) Congestive heart failure: Code(s): I50.9 - Heart failure, unspecified Status: Acute Assessment and Plan: Combined systolic and diastolic. Echocardiogram showed EF 45-50% with grade 2 diastolic dysfunction. noncompliant with his diuretics at home. asymptomatic at this time Diuretics on hold given acute kidney injury. chronic lower extremity edema. Elevation of the legs. I&O indicate patient is negative 4L Continue to trend intake and output, daily weights. Heart healthy diet Continue metoprolol. Lisinopril on hold due to CHERRY. Bp within acceptable range. (5) Type 2 diabetes mellitus: Qualifiers: Diabetes mellitus mcc insulin use: without intermodal dispatcher use Diabetes mellitus complication status: with hyperglycemia Qualified Code(s): E11.65 - Type 2 diabetes mellitus with hyperglycemia Code(s): E11.9 - Type 2 diabetes mellitus without complications Status: Chronic Assessment and Plan: A1c is 7.9. Fasting glucose is 181 today. Continue Accu-Cheks, high dose sliding scale insulin, hypoglycemic protocol Continue Lantus 13 units while hospitalized. Adjust dose as needed Trend blood glucose trends Home glipizide is on hold (6) Hypertension: Code(s): I10 - Essential (primary) hypertension Status: Chronic Assessment and Plan: BP reviewed and previously was well controlled . Due to persistent elevation, amlodipine was started Dip in BP today at 132/68 Hydralazine was stopped; continue metoprolol XL 100 mg PO daily. Increase amlodipine to 10 mg PO daily. Monitor BP. Furosemide and lisinopril on hold due to CHERRY as above. Resume when clinically appropriate Monitor BP trends and adjust medications as needed (7) Slurred speech: Code(s): R47.81 - Slurred speech Status: Acute Assessment and Plan: Resolved. Onset
[2021-05-16 17:07] LABS: Glucose Point of Care 135 mg/dl (65-105)
[2021-05-16 20:30] VITALS: BP 146/69; PULSE 78; RESP 22; TEMP 36.3; O2SAT 94
[2021-05-16] MEDS: ZOLPIDEM TARTRATE (*CRX) 5 MG TABLET PO (21:02)
[2021-05-16 21:44] LABS: Glucose Point of Care 163 mg/dl (65-105)
[2021-05-17 04:44] VITALS: BP 142/73; PULSE 73; RESP 20; TEMP 36; O2SAT 99
[2021-05-17 05:22] LABS: Hematocrit 36.4 % (42.0-52.0); Mean Corpuscular Hemoglobin 30.3 pg (26-34); Mean Corpuscular Volume 91.9 fl (80-100); Mean Platelet Volume 9.6 fl (7.4-10.4); Platelet Count Result 209 k/mm3 (150-375); Red Blood Count 3.96 M/mm3 (4.6-6.20); Red Cell Distribution Width 13.2 % (11.5-14.5); White Blood Count 10.4 K/mm3 (4.5-10.0)
[2021-05-17 05:48] LABS: Anion Gap 10 mmol/L (8-16); Blood Urea Nitrogen 59 mg/dL (9-20); Calcium 9.2 mg/dL (8.4-10.2); Carbon Dioxide 28 mmol/L (22-30); Chloride 102 mmol/L (98-107); Estimated CRCL calculation 45 ml/min; Estimated Glomerular Filt Rate 32; Glucose 127 mg/dL (65-110); Potassium 4.9 mmol/L (3.4-5.0); Sodium 140 mmol/L (137-145)
[2021-05-17] MEDS: HEPARIN SODIUM 5,000 UNITS/ML VIAL 5000 UNITS SUB-Q (05:55)
[2021-05-17] MEDS: traMADol HCL (*CRX) 50 MG TABLET PO (06:04)
[2021-05-17 07:27] LABS: Glucose Point of Care 154 mg/dl (65-105)
[2021-05-17] MEDS: INSULIN GLARGINE (*BKC) 100 UNITS/ML 13 UNITS SUB-Q (08:45)
[2021-05-17] MEDS: FLUTICASONE PROPIONATE 0.05% NA SPR 16 GM BTL (*BKC) 1 SPRAY NASAL (08:45)
[2021-05-17] MEDS: amLODIPine BESYLATE 5 MG TABLET 10 MG PO (08:46)
[2021-05-17] MEDS: QUEtiapine FUMARATE 100 MG TABLET 400 MG PO (08:46)
[2021-05-17] MEDS: LATANOPROST 0.005% OP SOLN 2.5 ML BTL 1 DROP EACH EYE (08:46)
[2021-05-17 08:47] VITALS: PULSE 78
[2021-05-17] MEDS: SACCHAROMYCES BOULARDII 250 MG CAPSULE PO (08:47)
[2021-05-17] MEDS: METOPROLOL SUCCINATE EXT REL 100 MG TABCR PO (08:47)
[2021-05-17] MEDS: TAMSULOSIN HCL 0.4 MG CAPSULE PO (08:47)
[2021-05-17] MEDS: ASPIRIN 81 MG CHEWABLE TABLET PO (08:48)
[2021-05-17] MEDS: LORATADINE 10 MG TABLET PO (08:48)
[2021-05-17] MEDS: EUCERIN CREAM 120 GM JAR 1 APPLIC TOPICAL (08:48)
[2021-05-17] MEDS: SILVERGEL (ELTA) 45 ML 1 APPLIC TOPICAL (08:49)
--- NOTE | 2021-05-17 09:38 | P.PNNP_ITS ---
Progress Note: A&P Assessment and Plan (1) Acute kidney injury: Code(s): N17.9 - Acute kidney failure, unspecified Status: Acute Assessment and Plan: * acute kidney injury * etiology not clear. * evaluation to date demonstrates: - renal ultrasound without obstruction - non-prerenal urine electrolytes x 2 - CPK not elevated - peripheral eosinophilia noted (possibly AIN?) but urine eosinophils negative * possible prerenal azotemia from diuretic use (on hold) * AIN possible -- antibiotics already changed * ATN from vancomycin (usually more slow indolent process) * Infection can cause ATN as well * Renal scan shows uptake without excretion, more in line with ATN than AIN. * Urine output is good at 2400 * creatinine is marginally lower at 2.1 * Discussed with Dr. Zapata * We can follow as an outpatient. The patient will get labs in a week and see me in my office (2) Skin ulcer of left great toe: Qualifiers: Non-pressure ulcer stage: with fat layer exposed Qualified Code(s): L97.522 - Non-pressure chronic ulcer of other part of left foot with fat layer exposed Code(s): L97.529 - Non-pressure chronic ulcer of other part of left foot with unspecified severity Status: Acute Assessment and Plan: * this was infected * Finished antibiotics * local wound care (3) Generalized edema: Code(s): R60.1 - Generalized edema Status: Acute Assessment and Plan: * venous dopplers negative for DVT * echocardiogram shows only mildly reduced EF * some proteinuria but not severe enough for this degree of swelling * component of venous insufficiency? * Intake and output is negative by 1L (4) Hypertension: Code(s): I10 - Essential (primary) hypertension Status: Chronic Assessment and Plan: * BP is under good control * amlodipine added recently * Off Hydralazine * Systolic 142 today (5) Congestive heart failure: Code(s): I50.9 - Heart failure, unspecified Status: Acute Assessment and Plan: * echo with mildly reduced EF ~ 40% * follow volume/respiratory status (6) Anemia: Code(s): D64.9 - Anemia, unspecified Status: Acute Assessment and Plan: * likely due to CHERRY and inflammation from infection * Hemoglobin in a good range * no need for ESAs (7) Type 2 diabetes mellitus: Qualifiers: 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 Eager for discharge Eating okay. Bowels are okay. no rash or itching Exam Narrative: General: WD/WN male in NAD Heart: normal S1 and S2; no rub Lungs: clear to auscultation Abdomen: soft, nontender, nondistended, positive bowel sounds Extremities: 1+ edema bilaterally Skin: no rash or subQ nodules Objective Data Vital Signs Vital Signs: Vital Signs - 24 hr 05/16/21 12:00 05/16/21 20:30 05/17/21 04:44 Temperature 36.7 C 36.3 C L 36.0 C L
--- NOTE | 2021-05-17 09:38 | PM.PNNEP ---
Progress Note: A&P Assessment and Plan (1) Acute kidney injury: Code(s): N17.9 - Acute kidney failure, unspecified Status: Acute Assessment and Plan: acute kidney injury etiology not clear. evaluation to date demonstrates: - renal ultrasound without obstruction - non-prerenal urine electrolytes x 2 - CPK not elevated - peripheral eosinophilia noted (possibly AIN?) but urine eosinophils negative possible prerenal azotemia from diuretic use (on hold) AIN possible -- antibiotics already changed ATN from vancomycin (usually more slow indolent process) Infection can cause ATN as well Renal scan shows uptake without excretion, more in line with ATN than AIN. Urine output is good at 2400 creatinine is marginally lower at 2.[address] Zapata We can follow as an outpatient. The patient will get labs in a week and see me in my office (2) Skin ulcer of left great toe: Qualifiers: Non-pressure ulcer stage: with fat layer exposed Qualified Code(s): L97.522 - Non-pressure chronic ulcer of other part of left foot with fat layer exposed Code(s): L97.529 - Non-pressure chronic ulcer of other part of left foot with unspecified severity Status: Acute Assessment and Plan: this was infected Finished antibiotics local wound care (3) Generalized edema: Code(s): R60.1 - Generalized edema Status: Acute Assessment and Plan: venous dopplers negative for DVT echocardiogram shows only mildly reduced EF some proteinuria but not severe enough for this degree of swelling component of venous insufficiency? Intake and output is negative by 1L (4) Hypertension: Code(s): I10 - Essential (primary) hypertension Status: Chronic Assessment and Plan: BP is under good control amlodipine added recently Off Hydralazine Systolic 142 today (5) Congestive heart failure: Code(s): I50.9 - Heart failure, unspecified Status: Acute Assessment and Plan: echo with mildly reduced EF ~ 40% follow volume/respiratory status (6) Anemia: Code(s): D64.9 - Anemia, unspecified Status: Acute Assessment and Plan: likely due to CHERRY and inflammation from infection Hemoglobin in a good range no need for ESAs (7) Type 2 diabetes mellitus: Qualifiers: Diabetes mellitus terminal block assembler insulin use: without terminal block assembler use Diabetes mellitus complication status: with hyperglycemia Qualified Code(s): E11.65 - Type 2 diabetes mellitus with hyperglycemia Code(s): E11.9 - Type 2 diabetes mellitus without complications Status: Chronic Assessment and Plan: follow accuchecks on SSI and Lantus Subjective Date/time seen: 05/17/21 09:38 Interval history: Randy is feeling okay. Eager for discharge Eating okay. Bowels are okay. no rash or itching Exam Narrative: General: WD/WN male in NAD Heart: normal S1 and S2; no rub Lungs: clear to auscultation Abdomen: soft, nontender, nondistended, positive bowel sounds Extremities: 1+ edema bilaterally Skin: no rash or subQ nodules Objective Data Vital Signs Vital Signs: Vital Signs - 24 hr 05/16/21 12:00 05/16/21 20:30 05/17/21 04:44 Temperature 36.7 C 36.3 C L 36.0 C L Pulse Rate 76 78 73 Respiratory Rate 16 22 H 20 Blood Pressure 133/72 146/69 H 142/73 H Pulse Oximetry 99 94 99 05/17/21 08:47 Temperature Pulse Rate 78 Respiratory Rate Blood Pressure Pulse Oximetry Intake/Output Intake/Output: Intake & Output 05/14/21 05/15/21 05/16/21 05/17/21 23:59 23:59 23:59 23:59 Intake Total 300 3060 2170 290 Output Total 2550 2400 4200 1200 Balance -1945 522 -2980 -934 Meds/Results Medications: Active Medications Generic Name Dose Route Start Last Admin Trade Name Freq PRN Reason Stop Dose Admin Amlodipine
[2021-05-17 11:50] LABS: Glucose Point of Care 193 mg/dl (65-105)
--- NOTE | 2021-05-20 18:06 | P.DS_ITS ---
DS: Admitting Diagnosis Discharge Date 05/17/21 Admitting Diagnosis Infected foot ulcer. DS: Discharge Diagnosis Discharge Diagnosis (1) Acute kidney injury: Code(s): N17.9 - Acute kidney failure, unspecified Status: Acute Assessment and Plan: * Acute non oliguric kidney injury likely secondary to vancomycin. Patient has experienced high vancomycin trough in the 30s. Baseline kidney function is presumed normal with creatinine 0.9 at presentation with slow increase up to 3.3. * Creatinine has plateaued to 2.2 today which is very encouraging. Renal scan reveals symmetrical function. * Avoid further kidney injury and exposure to nephrotoxins. * ATN from vancomycin seems likely, DC' on 05/06/21 * Monitor urine electrolytes. 05/05/21 Ur. na 40, Ur Creatinine 38.5, FENa 2.2%, Renal US showed unremarkable kidneys * Nephrology follow up as an outpatient to monitor clinically as the creatinine trend seems toward improvement. (2) Skin ulcer of left great toe: Qualifiers: Non-pressure ulcer stage: with fat layer exposed Qualified Code(s): L97.522 - Non-pressure chronic ulcer of other part of left foot with fat layer exposed Code(s): L97.529 - Non-pressure chronic ulcer of other part of left foot with unspecified severity Status: Acute Assessment and Plan: * 5 mm diabetic ulcer on plantar surface of left great toe. * Completed a course of IV vancomycin and Primaxin, discontinued on 05/06/21. No signs/symptoms of infection. currently he is off antibiotics. * CT foot reviewed with shallow ulceration and no evidence of osteomyelitis from 04/27/21 * Blood cultures negative from 04/27/21 * Seen in consultation by General surgery and Infectious disease. There was no need for debridement and has completed antibiotic therapy as above. * Supportive care. Elevate extremity. Analgesics available as needed. Continue local wound care. Continue with walking boot and walker for off- loading. * Wound clinic for close outpatient follow up. (3) Congestive heart failure: Code(s): I50.9 - Heart failure, unspecified Status: Acute Assessment and Plan: * Combined systolic and diastolic. * Echocardiogram showed EF 45-50% with grade 2 diastolic dysfunction. * noncompliant with his diuretics at home. * asymptomatic at this time * Diuretics on hold given acute kidney injury. * chronic lower extremity edema. Elevation of the legs. * I&O indicate patient is negative 4L * Follow up with PCP as an outpatient to resume lisinopril as kid ey function recovers. * Continue metoprolol. Lisinopril on hold due to CHERRY. Bp within acceptable range. (4) Hyperkalemia: Code(s): E87.5 - Hyperkalemia Status: Acute Assessment and Plan: * [place] to be related to CHERRY. Resolved. (5) Type 2 diabetes mellitus: Qualifiers: Diabetes mellitus complication status: with hyperglycemia Diabetes mellitus termite exterminator insulin use: without termite exterminator use Qualified Code(s): E11.65 - Type 2 diabetes mellitus with hyperglycemia Code(s): E11.9 - Type 2 diabetes mellitus without complications Status: Chronic Assessment and Plan: * A1c is 7.9. * Fasting glucose is 127 on the day of discharge * Home glipizide resumed. * follow up blood sugars with PCP. (6) Hypertension: Code(s): I10 - Essential (primary) hypertension Status: Chronic Assessment and Plan: * BP reviewed and previously was well controlled. * amlodipine 10 mg PO daily. * metoprol
--- NOTE | 2021-05-20 18:06 | PM.DS ---
DS: Admitting Diagnosis Discharge Date 05/17/21 Admitting Diagnosis Infected foot ulcer. DS: Discharge Diagnosis Discharge Diagnosis (1) Acute kidney injury: Code(s): N17.9 - Acute kidney failure, unspecified Status: Acute Assessment and Plan: Acute non oliguric kidney injury likely secondary to vancomycin. Patient has experienced high vancomycin trough in the 30s. Baseline kidney function is presumed normal with creatinine 0.9 at presentation with slow increase up to 3.3. Creatinine has plateaued to 2.2 today which is very encouraging. Renal scan reveals symmetrical function. Avoid further kidney injury and exposure to nephrotoxins. ATN from vancomycin seems likely, DC' on 05/06/21 Monitor urine electrolytes. 05/05/21 Ur. na 40, Ur Creatinine 38.5, FENa 2.2%, Renal US showed unremarkable kidneys Nephrology follow up as an outpatient to monitor clinically as the creatinine trend seems toward improvement. (2) Skin ulcer of left great toe: Qualifiers: Non-pressure ulcer stage: with fat layer exposed Qualified Code(s): L97.522 - Non-pressure chronic ulcer of other part of left foot with fat layer exposed Code(s): L97.529 - Non-pressure chronic ulcer of other part of left foot with unspecified severity Status: Acute Assessment and Plan: 5 mm diabetic ulcer on plantar surface of left great toe. Completed a course of IV vancomycin and Primaxin, discontinued on 05/06/21. No signs/symptoms of infection. currently he is off antibiotics. CT foot reviewed with shallow ulceration and no evidence of osteomyelitis from 04/27/21 Blood cultures negative from 04/27/21 Seen in consultation by General surgery and Infectious disease. There was no need for debridement and has completed antibiotic therapy as above. Supportive care. Elevate extremity. Analgesics available as needed. Continue local wound care. Continue with walking boot and walker for off-loading. Wound clinic for close outpatient follow up. (3) Congestive heart failure: Code(s): I50.9 - Heart failure, unspecified Status: Acute Assessment and Plan: Combined systolic and diastolic. Echocardiogram showed EF 45-50% with grade 2 diastolic dysfunction. noncompliant with his diuretics at home. asymptomatic at this time Diuretics on hold given acute kidney injury. chronic lower extremity edema. Elevation of the legs. I&O indicate patient is negative 4L Follow up with PCP as an outpatient to resume lisinopril as kid ey function recovers. Continue metoprolol. Lisinopril on hold due to CHERRY. Bp within acceptable range. (4) Hyperkalemia: Code(s): E87.5 - Hyperkalemia Status: Acute Assessment and Plan: [place] to be related to CHERRY. Resolved. (5) Type 2 diabetes mellitus: Qualifiers: Diabetes mellitus complication status: with hyperglycemia Diabetes mellitus long term acute care registered nurse insulin use: without long term acute care registered nurse use Qualified Code(s): E11.65 - Type 2 diabetes mellitus with hyperglycemia Code(s): E11.9 - Type 2 diabetes mellitus without complications Status: Chronic Assessment and Plan: A1c is 7.9. Fasting glucose is 127 on the day of discharge Home glipizide resumed. follow up blood sugars with PCP. (6) Hypertension: Code(s): I10 - Essential (primary) hypertension Status: Chronic Assessment and Plan: BP reviewed and previously was well controlled. amlodipine 10 mg PO daily. metoprolol XL 100 mg PO daily. Furosemide and lisinopril on hold due to CHERRY as above. Resume when clinically appropriate Lisinopril can be restarted as kidney function recovers as an outpatient. (7) Slurred speech: Code(s): R47.81 - Slurred speech Status: Acute Assessment and Plan: Resolved. Onset 04/27/2021 with normal neuro exam. declined a head CT at that time. Likely due to sleep deprivation. No evidence
== END 2021-05-17 13:29 | disposition home or self-care (01) | DRG 380 ==
LOC: ANHED 04-27 02:05 → ANH2MED 04-27 02:34
PROVIDERS: Hospitalist; Internal Medicine; Internal Medicine Infectious Disease; Internal Medicine Nephrology; Nurse Practitioner; Physician Assistant; Admitting Provider Internal Medicine; Emergency Provider Emergency Medicine; PCP Internal Medicine Gastroenterology; Visit Provider Physician Assistant
DX: E11.621 Type 2 diabetes mellitus with foot ulcer (principal); L97.522 Non-pressure chronic ulcer of other part of left foot with fat layer exposed; N17.9 Acute kidney failure, unspecified; N14.1 Nephropathy induced by other drugs, medicaments and biological substances; T36.8X5A Adverse effect of other systemic antibiotics, initial encounter; L03.116 Cellulitis of left lower limb; H54.8 Legal blindness, as defined in USA; E66.01 Morbid (severe) obesity due to excess calories; Z68.41 Body mass index [BMI] 40.0-44.9, adult; R07.9 Chest pain, unspecified; R47.81 Slurred speech; E87.5 Hyperkalemia; M15.9 Polyosteoarthritis, unspecified; S00.12XA Contusion of left eyelid and periocular area, initial encounter; W19.XXXA Unspecified fall, initial encounter; E11.65 Type 2 diabetes mellitus with hyperglycemia; G47.10 Hypersomnia, unspecified; I11.0 Hypertensive heart disease with heart failure; I50.41 Acute combined systolic (congestive) and diastolic (congestive) heart failure; E11.40 Type 2 diabetes mellitus with diabetic neuropathy, unspecified; I25.10 Atherosclerotic heart disease of native coronary artery without angina pectoris; D64.9 Anemia, unspecified; D72.10 Eosinophilia, unspecified; Z79.82 Long term (current) use of aspirin; Z79.84 Long term (current) use of oral hypoglycemic drugs; Z91.14 Patient's other noncompliance with medication regimen
CPT/HCPCS: 36415; 36600; 73620; 73700; 76775; 78707; 80048; 80053; 80069; 80202; 81003; 82550; 82565; 82570; 82805; 82948; 83036; 83605; 83735; 84132; 84156; 84300; 84484; 85014; 85018; 85025; 85027; 85610; 85652; 85730; 85999; 86140; 87040; 93005; 93306; 93970; 96365; 96366; 96367; 96372; 96375; 97110; 97116; 97162; 97165; 99285; A9270; A9562; G0378; J0360; J0692; J0696; J0743; J1644; J1815; J1940; J2270; J3370; J7030; L2116